=== PATIENT | female | born 2000 | race Caucasian/White ===

== ENCOUNTER 2020-06-12 09:00 | Emergency (ER) | payer OTHER, SELFPAY ==
[2020-06-12 09:16] VITALS: BP 150/94; PULSE 78; RESP 18; TEMP 36.7; O2SAT 98; BMI 34.0
--- NOTE | 2020-06-12 09:42 | HMH.EDUTC ---
[facility] [place] Clinical Impression: Left otitis media Qualifiers: Otitis media type: suppurative Chronicity: acute Recurrence: non-recurrent Spontaneous tympanic membrane rupture: without spontaneous rupture Qualified Code(s): H66.002 - Acute suppurative otitis media without spontaneous rupture of ear drum, left ear Disposition: Home, Self-Care Condition on Discharge: Good Instructions: Middle Ear Infection Additional Instructions: Drink plenty of fluids. Take tylenol or ibuprofen for pain or fever. Take the medications as directed. Follow up with your regular doctor. GO TO THE ER FOR ANY WORSENING SYMPTOMS Prescriptions: Amoxicillin [Amoxicillin 500mg Tab] 500 mg PO TID 10 Days #30 tab Transmission Status: Received by [id number] Referrals: Bao Wya [Primary Care Provider] - Forms: Work/School Release Time of Disposition: 09:48 Medical Decision Making - Medical Records Medical records reviewed: No: I reviewed the patient's medical records. - Sameer Inquiry Pt receiving controlled substance: No Vital Signs: 06/12/20 09:16 06/12/20 09:53 Temperature 98.1 F 98.1 F Temperature Source Oral Oral Pulse Rate 78 Pulse Rate [Radial] 78 Respiratory Rate 18 18 Blood Pressure 150/94 H Blood Pressure [Right Arm] 150/94 H Blood Pressure Mean [Right Arm] 112 Blood Pressure Source Automatic Cuff Blood Pressure Source [Right Arm] Automatic Cuff Blood Pressure Position Sitting Blood Pressure Position [Right Arm] Sitting 02 Sat by Pulse Oximetry 98 Oxygen Delivery Method Room Air Room Air [facility] [place] - General Stated complaint: Possible both ear infection Time Seen by Provider: 06/12/20 09:20 Mode of Arrival: Ambulatory Source of Information: Patient Limitations: No Limitations Description of Symptoms (Recalled from Triage Doc. by RN): left ear pain, right ear began to hurt today. HEENT Symptoms (Recalled from RN notes): Yes Resp Symptoms (Recalled from RN notes): No Skin Symptoms (Recalled from RN notes): No MS Symptoms (Recalled from RN notes): No Functional Status (Recalled from RN notes): wnl - History of Present Illness Provider Complaint: She c/o left ear pain for the past 2 days. - Related Data Previous Rx's Medication Instructions Recorded Amoxicillin [Amoxicillin 500mg Tab] 500 mg PO TID 10 Days #30 tab 06/12/20 Allergies Allergy/AdvReac Type Severity Reaction Status Date / Time No Known Allergies Allergy Verified 06/12/20 09:22 - Worker's Comp Is this a Worker's Comp case?: No H History - Hepatitis A Screen Drug use history?: No High risk sexual behaviors?: No History of sexually transmitted infection?: No Currently employed?: No Childcare worker?: No Do you have indoor plumbing?: Yes Do you have electricity?: Yes Attestation statement:: This patient has been screened for Hepatitis A risk factors. I have reviewed the patient's past medical history: Yes - Social History Alcohol Intake: never Occupational Status: employed Housing: house ROS Obtained: Yes All systems reviewed & no additional complaints - Constitutional Constitutional: Reports system reviewed and no additional complaints, except as docu, Denies chills, Denies fever(s) - Eyes Eyes: Reports system reviewed and no additional complaints, except as docu, Denies eye discharge - ENT Ears, Nose, Mouth, and Throat: Reports as per HPI - Cardiovascular Cardiovascular: Denies chest pain - Respiratory Respiratory: No chest congestion, No cough Physical Exam - General General appearance: alert, in no apparent distress - Head Head exam: atraumatic, normocephalic, normal inspection - Eye Eye exam: Present: normal appearance, PERRL, EOMI - ENT ENT exam: Present: mucous membranes moist, normal external ear exam - Expanded ENT Exam TM/Canal exam: Left TM: erythema, bulging, effusion Mouth exam: Present: normal external inspection Teeth exam
[2020-06-12 09:53] VITALS: BP 150/94; PULSE 78; RESP 18; TEMP 36.7; O2SAT 98
== END 2020-06-12 09:54 | disposition home or self-care (01) ==
PROVIDERS: Emergency Provider Nurse Practitioner Family; PCP Family Medicine
DX: H66.002 Acute suppurative otitis media without spontaneous rupture of ear drum, left ear (principal)
CPT/HCPCS: 99201

== ENCOUNTER → 2020-08-28 08:45 | Outpatient (CLI) | payer OTHER, BC, SELFPAY ==
[2020-08-28 10:01] LABS: HCG,Quantitative < 2 mIU/ml (0-5.42)
== END ==
PROVIDERS: Visit Provider Nurse Practitioner Obstetrics & Gynecology
DX: Z34.90 Encounter for supervision of normal pregnancy, unspecified, unspecified trimester (principal)
CPT/HCPCS: 36415; 84702

== ENCOUNTER → 2020-09-19 18:18 | Outpatient (CLI) | payer OTHER, BC, SELFPAY ==
[2020-09-19 19:13] LABS: HCG,Quantitative 49 mIU/ml (0-5.42)
== END ==
PROVIDERS: Visit Provider Nurse Practitioner Obstetrics & Gynecology
DX: N92.6 Irregular menstruation, unspecified (principal)
CPT/HCPCS: 36415; 84702

== ENCOUNTER → 2020-09-26 15:32 | Outpatient (CLI) | payer OTHER, BC, SELFPAY ==
[2020-09-26 16:39] LABS: HCG,Quantitative 650 mIU/ml (0-5.42)
== END ==
PROVIDERS: Visit Provider Nurse Practitioner Obstetrics & Gynecology
DX: Z32.00 Encounter for pregnancy test, result unknown (principal)
CPT/HCPCS: 36415; 84702

== ENCOUNTER → 2020-10-18 10:32 | Outpatient (CLI) | payer OTHER, BC, SELFPAY ==
--- NOTE | 2020-10-18 10:33 | US_ITS ---
PROCEDURE: US OB <= 14 WEEKS FETUS CLINICAL INDICATION: for dates Evaluate dates, early OB ultrasound COMPARISON: No exams were available for comparison FINDINGS: An intrauterine gestational sac is present with a pole with a crown-rump length of 1.45cm correlating to gestational age of 7weeks 6days. heart tones are present with an FHR of 160bpm. Yolk sac is noted. There is a 2.4 cm left corpus luteum cyst IMPRESSION: Live IUP at 7 weeks 6 days Estimated due date by Ultrasound is 05/31/2021 Dictated by: Atilio Olivas MD 10/18/2020 18:55 Atilio Olivas MD in [place] 10/18/2020 18:55
== END ==
PROVIDERS: PCP Family Medicine; Visit Provider Nurse Practitioner Obstetrics & Gynecology
DX: Z34.90 Encounter for supervision of normal pregnancy, unspecified, unspecified trimester (principal)
CPT/HCPCS: 76801

== ENCOUNTER → 2020-11-06 15:42 | Outpatient (CLI) | payer OTHER, BC, SELFPAY ==
[2020-11-06 16:29] LABS: Basophils # 0.1 K/mm3 (0-0.2); Basophils % 0.4 % (0.1-2.0); Eosinophils # 0.2 K/mm3 (0.0-0.4); Eosinophils % 1.3 % (0.1-12.0); Hematocrit 37.7 % (37.0-47.0); Hemoglobin 12.5 g/dL (12.2-16.2); Lymphocytes # 3.3 K/mm3 (0.7-4.5); Mean Corpuscular HGB Conc 33.2 g/dL (31.8-35.4); Mean Corpuscular Hemoglobin 28.2 pg (27.0-31.2); Mean Corpuscular Volume 84.8 fl (81-99); Mean Platelet Volume 8.1 fl (7.4-10.4); Monocytes # 0.6 K/mm3 (0.1-1.0); Monocytes % 4.5 % (1.7-9.3); Neutrophils # 10.1 K/mm3 (1.8-7.8); Neutrophils % 70.8 % (37.0-80.0); Platelet Count 305 K/mm3 (142-424); Red Blood Count 4.45 M/mm3 (4.20-5.40); Red Cell Distribution Width 13.6 % (11.5-17.5); White Blood Count 14.3 K/mm3 (4.8-10.8)
[2020-11-08 16:40] LABS: HIV Screen 4th Generation wRfx Non Reactive (Non Reactive); Hepatitis B Surface Antigen Negative (Negative); Hepatitis C Antibody <0.1 s/co ratio (0.0-0.9); Rapid Plasma Reagin Ab Titer Non Reactive (NonRea<1:1)
== END ==
PROVIDERS: Visit Provider Nurse Practitioner Obstetrics & Gynecology
DX: Z34.90 Encounter for supervision of normal pregnancy, unspecified, unspecified trimester (principal); Z3A.01 Less than 8 weeks gestation of pregnancy
CPT/HCPCS: 36415; 85025; 86592; 86703; 86762; 86850; 87340; 87380; G0432

== ENCOUNTER 2020-11-10 09:09 | Emergency (ER) | payer OTHER, BC, SELFPAY ==
[2020-11-10 09:10] VITALS: BP 117/90; PULSE 87; RESP 18; TEMP 37; O2SAT 99; BMI 34.2
--- NOTE | 2020-11-10 09:31 | HMH.EDUTC ---
[facility] [place]ression: Right sciatic nerve pain Disposition: Home, Self-Care Condition on Discharge: Good Instructions: DI for Back Pain With Sciatica Additional Instructions: Follow up with PCP or chiropractor Prescriptions: Cyclobenzaprine HCl [Cyclobenzaprine 10mg Tab*] 10 mg PO HS 20 Days #20 tab Transmission Status: Pending to [id number] methylPREDNISolone [Medrol 4mg tab] 4 mg PO DIRECTED #21 tab Transmission Status: Pending to [id number] Referrals: Bao Way [Primary Care Provider] - Time of Disposition: 09:41 Medical Decision Making - Sameer Inquiry Pt receiving controlled substance: No [facility] [place] - General Stated complaint: right sided lower back pain Time Seen by Provider: 11/10/20 09:31 - History of Present Illness Provider Complaint: Right sided low back pain for the past year or so. Getting worse for the past few months. No injury. Works at [employer], so does stand on concrete all day. Pain starts right above her right buttock and radiates to her foot. No bowel or bladder incontinence. Onset (ago): year(s) (1) Location: back, buttocks, right, lower extremity Quality: burning, sharp Consistency: constant Relieving factors: none Exacerbating factors: none Associated symptoms: denies other symptoms Treatments prior to arrival: none - Related Data Previous Rx's Medication Instructions Recorded Cyclobenzaprine HCl 10 mg PO HS 20 Days #20 tab 11/10/20 [Cyclobenzaprine 10mg Tab*] methylPREDNISolone [Medrol 4mg 4 mg PO DIRECTED #21 tab 11/10/20 tab] Allergies Allergy/AdvReac Type Severity Reaction Status Date / Time No Known Allergies Allergy Verified 10/18/20 09:[address] [facility] History - Hepatitis A Screen Attestation statement:: This patient has been screened for Hepatitis A risk factors. I have reviewed the patient's past medical history: Yes Amputation: No Fractures: No - Social History Smoking Status: Never smoker Alcohol Intake: never Alcohol Intake Frequency:: holidays/special occasions only Substance Use Type: denies use Occupational Status: employed Housing: house Family Hx:: No significant family history ROS Obtained: Yes All systems reviewed & no additional complaints - Musculoskeletal Musculoskeletal: Reports back pain, Reports radiating pain into limb Physical Exam - General General appearance: alert, in no apparent distress - Head Head exam: atraumatic, normocephalic, normal inspection - Eye Eye exam: Present: normal appearance, PERRL, EOMI - ENT ENT exam: Present: normal exam, normal oropharynx, mucous membranes moist, TM's normal bilaterally, normal external ear exam - Neck Neck exam: Present: normal inspection, full ROM, trachea midline. Absent: meningismus, lymphadenopathy - Chest Chest inspection: Present: normal inspection, symmetric chest wall rise. Absent: tenderness - Respiratory Respiratory exam: Present: normal lung sounds bilaterally. Absent: respiratory distress - Cardiovascular Cardiovascular exam: Present: regular rate, normal rhythm. Absent: JVD - Abdominal Exam Abdominal exam: Present: soft, normal bowel sounds. Absent: distention, tenderness, guarding - Extremities Exam Extremities exam: Present: normal inspection, full ROM, normal capillary refill. Absent: calf tenderness - Back Exam Back exam: Present: normal inspection, sciatic notch tenderness (R), straight leg raise (R). Absent: tenderness - Neurological Exam Neurological exam: Present: alert, oriented X3 - Psychiatric Psychiatric exam: Present: normal affect, normal mood - Skin Skin exam: Present: warm, dry, intact, normal color - Lymphatic Lymphatic Findings: no adenopathy
[2020-11-10 09:49] VITALS: BP 117/90; PULSE 87; RESP 18; TEMP 37; O2SAT 99
== END 2020-11-10 09:50 | disposition home or self-care (01) ==
PROVIDERS: Emergency Provider Physician Assistant; PCP Family Medicine
DX: M54.41 Lumbago with sciatica, right side (principal); Z3A.11 11 weeks gestation of pregnancy
CPT/HCPCS: 99202; G0463

== ENCOUNTER 2020-11-22 16:52 | Emergency (ER) | payer OTHER, BC, SELFPAY ==
[2020-11-22 16:53] VITALS: BP 136/92; PULSE 92; RESP 16; TEMP 36.8; O2SAT 98; BMI 34.0
--- NOTE | 2020-11-22 17:21 | HMH.EDUTC ---
[facility] [place] Clinical Impression: Viral syndrome, Exposure to COVID-19 virus Disposition: Home, Self-Care Condition on Discharge: Good Instructions: DI for COVID-19 (Suspected or Confirmed ), Preventing the Spread of Coronavirus Discharge Instructions Additional Instructions: Drink plenty of fluids. Take tylenol for pain or fever. Return if you begin to have difficulty breathing. Follow up with your regular doctor. GO TO THE ER FOR ANY WORSENING SYMPTOMS Referrals: Bao Way [Primary Care Provider] - Forms: Work/School Release Time of Disposition: 17:29 Medical Decision Making - Medical Records Medical records reviewed: No: I reviewed the patient's medical records. - Sameer Inquiry Pt receiving controlled substance: No Vital Signs: 11/22/20 16:53 11/22/20 17:55 Temperature 98.3 F 98.3 F Temperature Source Oral Oral Pulse Rate 65 Pulse Rate [Right] 92 H Respiratory Rate 16 16 Blood Pressure 130/70 Blood Pressure [Right Arm] 136/92 H Blood Pressure Mean [Right Arm] 106 Blood Pressure Source Automatic Cuff Blood Pressure Source [Right Arm] Automatic Cuff Blood Pressure Position Sitting Blood Pressure Position [Right Arm] Sitting 02 Sat by Pulse Oximetry 98 Oxygen Delivery Method Room Air Room Air - Lab Data Lab Results 11/22/20 17:44: Influenza Type A Ag Negative, Influenza Type B Ag Negative [facility] [place] HPI - General Stated complaint: Covid test Time Seen by Provider: 11/22/20 17:21 Mode of Arrival: Ambulatory Source of Information: Patient Limitations: No Limitations Description of Symptoms (Recalled from Triage Doc. by RN): no taste or smell, body aches, fever that started this morning HEENT Symptoms (Recalled from RN notes): No Resp Symptoms (Recalled from RN notes): No Skin Symptoms (Recalled from RN notes): No MS Symptoms (Recalled from RN notes): No Functional Status (Recalled from RN notes): na - History of Present Illness Provider Complaint: She is here needing a covid test. She states that she has had decreased sense of taste and smell since this morning. - Related Data Allergies Allergy/AdvReac Type Severity Reaction Status Date / Time No Known Allergies Allergy Verified 11/20/20 10:55 - Worker's Comp Is this a Worker's Comp case?: No [facility] History - Hepatitis A Screen Drug use history?: No High risk sexual behaviors?: No History of sexually transmitted infection?: No Currently employed?: No Childcare worker?: No Do you have indoor plumbing?: Yes Do you have electricity?: Yes Attestation statement:: This patient has been screened for Hepatitis A risk factors. I have reviewed the patient's past medical history: Yes Laterality Cases: Bilateral: Tonsillectomy Amputation: No Fractures: No - Social History Smoking Status: Never smoker Alcohol Intake: never Alcohol Intake Frequency:: holidays/special occasions only Substance Use Type: denies use Occupational Status: other Housing: house Family Hx:: No significant family history ROS Obtained: Yes All systems reviewed & no additional complaints - Constitutional Constitutional: Reports chills, Reports fever(s), Reports poor appetite, Reports malaise - Eyes Eyes: Denies eye discharge - ENT Ears, Nose, Mouth, and Throat: Reports as per HPI - Cardiovascular Cardiovascular: Denies system reviewed and no additional complaints, except as docu - Respiratory Respiratory: Reports chest congestion, Reports cough, Denies dyspnea, Denies stridor, Denies wheezing Physical Exam - General General appearance: alert, in no apparent distress - Head Head exam: atraumatic, normocephalic, normal inspection - Eye Eye exam: Present: normal appearance, PERRL, EOMI - ENT ENT exam: Present: normal exam, normal oropharynx, mucous membranes moist, TM's normal bilaterally, normal external ear exam - Neck Neck exam: Present: normal inspection, full ROM, trachea midline. Absent: m
[2020-11-22 17:53] LABS: UTC Influenza A Antigen Negative (Negative); UTC Influenza B Antigen Negative (Negative)
[2020-11-22 17:55] VITALS: BP 130/70; PULSE 65; RESP 16; TEMP 36.8; O2SAT 98
--- NOTE | 2020-11-23 09:42 | PC.NURSE ---
Pt notified of positive covid results
== END 2020-11-22 17:56 | disposition home or self-care (01) ==
PROVIDERS: Emergency Provider Nurse Practitioner Family; PCP Family Medicine
DX: U07.1 COVID-19 (principal); B34.9 Viral infection, unspecified
CPT/HCPCS: 87804; 99202; G0463; U0003

== ENCOUNTER 2020-11-29 01:19 | Emergency (ER) | payer OTHER, BC, SELFPAY ==
[2020-11-29 01:30] VITALS: BP 153/83; PULSE 124; RESP 19; TEMP 36.8; O2SAT 99; BMI 25.0
[2020-11-29 02:00] VITALS: BP 135/68; PULSE 111; RESP 18; O2SAT 99
[2020-11-29 02:30] VITALS: BP 122/56; PULSE 103; O2SAT 100
[2020-11-29 03:00] VITALS: BP 120/47; PULSE 107; RESP 17; TEMP 36.9; O2SAT 100
[2020-11-29 03:25] VITALS: BP 118/51; PULSE 105; RESP 18; TEMP 36.9; O2SAT 100
[2020-11-29 04:02] LABS: Hematocrit 42.7 % (37.0-47.0); Hemoglobin 14.2 g/dL (12.2-16.2); Red Blood Count 5.12 M/mm3 (4.20-5.40); White Blood Count 8.6 K/mm3 (4.8-10.8)
[2020-11-29 04:03] LABS: Basophils % 0.3 % (0.1-2.0); Eosinophils # 0.1 K/mm3 (0.0-0.4); Eosinophils % 1.1 % (0.1-12.0); Lymphocytes % 23.8 % (10-50); Mean Corpuscular HGB Conc 33.3 g/dL (31.8-35.4); Mean Corpuscular Hemoglobin 27.8 pg (27.0-31.2); Mean Corpuscular Volume 83.5 fl (81-99); Mean Platelet Volume 8.3 fl (7.4-10.4); Monocytes # 0.4 K/mm3 (0.1-1.0); Monocytes % 5.1 % (1.7-9.3); Neutrophils # 5.9 K/mm3 (1.8-7.8); Neutrophils % 68.7 % (37.0-80.0); Platelet Count 197 K/mm3 (142-424); Red Cell Distribution Width 12.7 % (11.5-17.5)
[2020-11-29 04:04] LABS: Anion Gap 16.6 mEq/L (5-15); Bilirubin,Total 0.4 mg/dl (0.2-1.3); Blood Urea Nitrogen 6 mg/dl (7-17); Calcium 9.2 mg/dl (8.4-10.2); Carbon Dioxide 20 mmol/L (22.0-30.0); Chloride 104 mmol/L (98-107); Creatinine Clearance Estimated 175 mL/min (50-200); Estimated Glomerular Filt Rate 126 ml/min (>60); GFR (African American) 153 ML/MIN (>60); Glucose 109 mg/dl (74-100); Potassium 3.6 mmoL/L (3.5-5.1); Sodium 137 mmol/L (136-145)
[2020-11-29 04:05] LABS: Alanine Aminotransferase 62 U/L (12-78); Albumin Level 4.2 g/dl (3.5-5.0); Albumin/Globulin Ratio 1.2 (1.1-1.8); Alkaline Phosphatase 76 U/L (38-126); Amylase 59 U/L (30-110); Aspartate Amino Transferase 49 U/L (14-36); C-Reactive Protein 149.9 mg/L (0-4); Globulin 3.5 g/dL (1.3-3.2); Lipase 61 U/L (23-300); Procalcitonin 0.144 ng/mL (0.0-2.0); Total Protein,Serum 7.7 g/dl (6.3-8.2)
[2020-11-29 04:06] LABS: Erythrocyte Sedimentation Rate 25 mm/hr (0-20)
[2020-11-29 04:06] LABS: Color,Urine Dark Yellow (Yellow); Microscopic, Urine URINE MICROSCOPIC (MICROSCOPIC)
[2020-11-29 04:07] LABS: Appearance,Urine Clear (Clear); Blood, Urine Trace (Negative); Glucose,Urine (UA) Negative (Negative); Ketones,Urine 3+ (Negative); Protein,Urine Trace (Negative); Specific Gravity, Urine >= 1.030 (1.005-1.030)
[2020-11-29 04:08] LABS: Bacteria,Urine Trace /lpf; Bilirubin,Urine Negative (Negative); Leukocyte Esterase,Urine Negative (Negative); Nitrate,Urine Negative (Negative); RBC,Urine Occasional #/hpf (0-3)
--- NOTE | 2020-11-29 04:49 | HMH.EDNVD ---
ED Disposition Clinical Impression: COVID-19 affecting in second trimester Disposition: Home, Self-Care Condition on Discharge: Good Instructions: DI for Nausea -- Adult Additional Instructions: fluids and see pcp for follow up Referrals: Bao Way [Primary Care Provider] - - Critical Care Critical Care Time: No Attestation: On 11/29/20, the high probability of a clinically significant, sudden or life threatening deterioration of the following system(s) required my full and direct attention, intervention and personal management. The time I documented below is in addition to time spent performing reported procedures but includes the following listed in this critical care notation. Medical Decision Making - Medical Records Medical records reviewed: Yes: I reviewed the patient's medical records. - Sameer Inquiry Pt receiving controlled substance: No Vital Signs: 11/29/20 01:30 11/29/20 02:00 11/29/20 02:30 Temperature 98.3 F Temperature Source Oral Pulse Rate 111 H 103 H Pulse Rate [Right Brachial] 124 H Respiratory Rate 19 18 Blood Pressure 135/68 122/56 L Blood Pressure [Right Arm] 153/83 H Blood Pressure Mean [Right Arm] 106 Blood Pressure Source [Right Arm] Automatic Cuff Blood Pressure Position 02 Sat by Pulse Oximetry 99 99 100 Oxygen Delivery Method Room Air Room Air Room Air 11/29/20 03:00 11/29/20 03:25 Temperature 98.4 F 98.4 F Temperature Source Oral Oral Pulse Rate 107 H 105 H Pulse Rate [Right Brachial] Respiratory Rate 17 18 Blood Pressure 120/47 L 118/51 L Blood Pressure [Right Arm] Blood Pressure Mean [Right Arm] Blood Pressure Source [Right Arm] Blood Pressure Position Supine 02 Sat by Pulse Oximetry 100 Oxygen Delivery Method Room Air Room Air - Lab Data Lab results reviewed: Yes: I reviewed the patient's lab results. Lab Results 11/29/20 01:35: WBC 8.6, RBC 5.12, Hgb 14.2, Hct 42.7, MCV 83.5, MCH 27.8, MCHC 33.3, RDW 12.7, Plt Count 197, MPV 8.3, Neut % (Auto) 68.7, Lymph % (Auto) 23.8, Cross % (Auto) 5.1, Eos % (Auto) 1.1, Baso % (Auto) 0.3, Neut # (Auto) 5.9, Lymph # (Auto) 2.0, Cross # (Auto) 0.4, Eos # (Auto) 0.1, Baso # (Auto) 0.0 11/29/20 01:35: Sodium 137, Potassium 3.6, Chloride 104, Carbon Dioxide 20 L, Anion Gap 16.6 H, BUN 6 L, Creatinine 0.60, Estimated Creat Clear 175, Estimated GFR 126, Est GFR ( Amer) 153, Glucose 109 H, Calcium 9.2, Total Bilirubin 0.4, AST 49 H, ALT 62, Alkaline Phosphatase 76, C-Reactive Protein 149.9 H, Total Protein 7.7, Albumin 4.2, Globulin 3.5 H, Albumin/Globulin Ratio 1.2, Amylase 59, Lipase 61 11/29/20 01:35: ESR 25 H 11/29/20 01:35: Procalcitonin 0.144 11/29/20 02:35: Urine Color Dark yellow, Urine Appearance Clear, Urine pH 6.0, Ur Specific [place] >= 1.030, Urine Protein Trace, Urine Glucose (UA) Negative, Urine Ketones 3+, Urine Blood Trace, Urine Nitrate Negative, Urine Bilirubin Negative, Urine Urobilinogen 1.0, Ur Leukocyte Esterase Negative, Urine RBC Occasional, Urine Bacteria Trace Result diagrams: 11/29/20 01:35 11/29/20 01:35 Orders (Tests/Meds): ED MEDICATIONS Generic Name Dose Route Start Last Admin Trade Name Freq PRN Reason Stop Dose Admin Sodium Chloride 1,000 mls @ 999 mls/hr 11/29/20 04:15 11/29/20 04:03 Sod Chlor 0.9% 1000ml Bag IV 11/29/20 05:15 999 mls/hr .Q1H1M TRACIE Administration Discontinued Medications Generic Name Dose Route Start Last Admin Trade Name Freq PRN Reason Stop Dose Admin Promethazine HCl 25 mg 11/29/20 04:01 11/29/20 04:03 Promethazine Hcl 25mg/Ml 1ml Vial IV 11/29/20 04:02 25 mg ONCE ONE Administration Sodium Chloride 25 ml 11/29/20 04:01 11/29/20 04:03 Sodium Chloride 0.9% 25ml Bag IV 11/29/20 04:02 25 ml ONCE ONE Administration Nausea/Vomiting/Diarrhea HPI - General Chief complaint: Nausea/Vomiting/Diarrhea Stated complaint: COVID Positive Vomiting;Cough Time Seen by Provider:
== END 2020-11-29 03:35 | disposition home or self-care (01) ==
PROVIDERS: Emergency Provider Emergency Medicine; PCP Family Medicine
DX: O98.512 Other viral diseases complicating pregnancy, second trimester (principal); U07.1 COVID-19
CPT/HCPCS: 80053; 81001; 82150; 83690; 84145; 85025; 85651; 86140; 96365; 99283

== ENCOUNTER 2020-12-11 09:31 | Emergency (ER) | payer OTHER, BC, SELFPAY ==
[2020-12-11 09:41] VITALS: BP 126/89; PULSE 98; RESP 16; TEMP 36.7; O2SAT 97; BMI 34.9
[2020-12-11 09:43] LABS: Apearance,Urine Clear (Clear); Color,Urine Yellow (Yellow); PH,Urine 5.5 (5.0-8.5)
[2020-12-11 09:44] LABS: Glucose,Urine (UA) Negative (Negative); Protein,Urine 1+ (Negative); Specific Gravity, Urine >= 1.030 (1.005-1.030)
[2020-12-11 09:45] LABS: Bilirubin,Urine 1+ (Negative); Blood, Urine Trace (Negative); Ketones,Urine TRACE (Negative); UTC Leukocyte Esterase,Urine Trace (Negative); UTC Nitrate,Urine Positive (Negative); Urobilinogen,Urine 0.2 EU/dl (0.2)
--- NOTE | 2020-12-11 09:50 | HMH.EDUTC ---
[facility] [place] Disposition Clinical Impression: UTI (urinary tract infection) Qualifiers: Urinary tract infection type: site unspecified Hematuria presence: without hematuria Qualified Code(s): N39.0 - Urinary tract infection, site not specified Disposition: Home, Self-Care Condition on Discharge: Good Instructions: Urinary Tract Infection, DI for Urinary Tract Infection (UTI) Additional Instructions: Drink plenty of fluids. Take tylenol for pain or fever. Return if you begin to have difficulty breathing. Follow up with your regular doctor. GO TO THE ER FOR ANY WORSENING SYMPTOMS Prescriptions: cephALEXin [cephALEXin 500mg capsule] 500 mg PO Q6H 7 Days #28 cap Transmission Status: Received by [id number] Referrals: Bao Way [Primary Care Provider] - Forms: Work/School Release Time of Disposition: 09:57 Medical Decision Making - Sameer Inquiry Pt receiving controlled substance: No Vital Signs: 12/11/20 09:41 12/11/20 10:03 Temperature 98.1 F 98.1 F Temperature Source Oral Oral Pulse Rate 98 H Pulse Rate [Left Radial] 98 H Respiratory Rate 16 16 Blood Pressure 126/89 Blood Pressure [Right Arm] 126/89 Blood Pressure Mean [Right Arm] 101 02 Sat by Pulse Oximetry 97 Oxygen Delivery Method Room Air - Lab Data Lab results reviewed: Yes: I reviewed the patient's lab results. Lab Results 12/11/20 09:42: Urine Color Yellow, Urine Appearance Clear, Urine pH 5.5, Ur Specific [place] >= 1.030, Urine Protein 1+, Urine Glucose (UA) Negative, Urine Ketones Trace, Urine Blood Trace, Urine Nitrate Positive A, Urine Bilirubin 1+ A, Urine Urobilinogen 0.2, Ur Leukocyte Esterase Trace Orders (Tests/Meds): ORDERS Category Date Time Status Urine Culture Routine Micro 12/11/20 09:30 Received [facility] [place] HPI - General Stated complaint: FREQUENT URINATION,BURNING Time Seen by Provider: 12/11/20 09:50 Mode of Arrival: Ambulatory Source of Information: Patient Limitations: No Limitations Description of Symptoms (Recalled from Triage Doc. by RN): Burning upon urination, will be 16 weeks on 12/14/20 HEENT Symptoms (Recalled from RN notes): No Resp Symptoms (Recalled from RN notes): No Skin Symptoms (Recalled from RN notes): No MS Symptoms (Recalled from RN notes): No Functional Status (Recalled from RN notes): na - History of Present Illness Provider Complaint: She reports that she has had urinary frequency and dysuria for the past 1 day. She is 14 weeks . She denies any vaginal bleeding, abdominal pain or low back pain. - Related Data Home Medications Medication Instructions Recorded Confirmed Pnv No.95/Ferrous Fum/Folic AC 1 tab PO DAILY 11/29/20 11/29/20 [ Caplet] Previous Rx's Medication Instructions Recorded cephALEXin [cephALEXin 500mg 500 mg PO Q6H 7 Days #28 cap 12/11/20 capsule] Allergies Allergy/AdvReac Type Severity Reaction Status Date / Time oseltamivir [From Tamiflu] AdvReac Mild Rash Verified 11/29/20 04:06 - Worker's Comp Is this a Worker's Comp case?: No [facility] History - Hepatitis A Screen Drug use history?: No High risk sexual behaviors?: No History of sexually transmitted infection?: No Currently employed?: No Childcare worker?: No Do you have indoor plumbing?: Yes Do you have electricity?: Yes Attestation statement:: This patient has been screened for Hepatitis A risk factors. I have reviewed the patient's past medical history: Yes Medical History: Denies:: Cancer, Diabetes Mellitus Type 1, Diabetes Mellitus Type 2 Laterality Cases: Bilateral: Tonsillectomy Amputation: No Fractures: No - Social History Smoking Status: Never smoker Alcohol Intake: never Alcohol Intake Frequency:: holidays/special occasions only Substance Use Type: denies use Occupational Status: employed Housing: house Household Members: significant other Family Hx:: No significant family history ROS Obtained: Yes All sys
[2020-12-11 10:03] VITALS: BP 126/89; PULSE 98; RESP 16; TEMP 36.7; O2SAT 97
--- NOTE | 2020-12-14 15:41 | PC.NURSE ---
PT CALLED AND REQUESTED URINE CULTURE RESULTS. PT INFORMED. [facility] PROVIDER RECOMMENDED A CHANGE OF ANTIBIOTIC. ANTIBIOTIC SENT TO [facility], PT AWARE
== END 2020-12-11 10:06 | disposition home or self-care (01) ==
PROVIDERS: Emergency Provider Nurse Practitioner Family; PCP Family Medicine
DX: O23.12 Infections of bladder in pregnancy, second trimester (principal); N30.00 Acute cystitis without hematuria; Z3A.16 16 weeks gestation of pregnancy
CPT/HCPCS: 81003; 87086; 87088; 87186; 99202; G0463

== ENCOUNTER → 2021-01-10 12:47 | Outpatient (CLI) | payer OTHER, BC, SELFPAY ==
--- NOTE | 2021-01-10 12:48 | US_ITS ---
PROCEDURE: US OB >= 14 WEEKS FETUS CLINICAL INDICATION: 20 week gestation Anatomy exam COMPARISON: US US OB <= 14 WEEKS FETUS from 10/18/2020 FINDINGS: There is a single live fetus which is in cephalic presentation. heart and body motion noted. Cervix is closed measuring 4 cm. Placenta is posterior and grade 1. Complete survey performed and was unremarkable on the submitted images as in PACS. No discrete anomalies identified on survey imaging by technologist. Active fetus. Three-vessel cord with satisfactory umbilical cord insertion. 4- chamber heart noted. Survey of brain & ventricles Unremarkable. Face and neck survey unremarkable. Diaphragm and chest views unremarkable. Abdomen: Both kidneys noted and unremarkable. Stomach noted and satisfactory. Spine: Survey of the spine satisfactory with no anomalies identified nor imaged. Both arms and legs noted. Amniotic Fluid: Adequate. Maternal adnexa: No significant findings. Measurements: Average ultrasound age 19weeks 6days. Gestational Age 19weeks 6days Estimated due date by ultrasound age 1005/31/2021. Estimated weight 324g BPD = 20weeks OFD = 20weeks 1day HC = 19weeks 2days AC = 20weeks 1day FL = 20weeks Growth Percentile= 52Percent% Heart Rate = 156bpm Cerebellum = 20weeks Humerus = 20weeks HC/AC is 1.11 CI is 0.8 FL/BPD is 0.69 FL/AC is 0.22 IMPRESSION: Live IUP in cephalic presentation with an average ultrasound age of 19 weeks 6 days. No obvious anomalies. Please see above for detail. Dictated by: Atilio Olivas MD 01/11/2021 08:31 Atilio Olivas MD in [place] 01/11/2021 08:31
== END ==
PROVIDERS: PCP Family Medicine; Visit Provider Nurse Practitioner Obstetrics & Gynecology
DX: Z34.90 Encounter for supervision of normal pregnancy, unspecified, unspecified trimester (principal); Z3A.20 20 weeks gestation of pregnancy
CPT/HCPCS: 76805

== ENCOUNTER 2021-02-26 09:09 | Outpatient (CLI) | payer OTHER, BC, SELFPAY ==
[2021-02-26 10:02] LABS: Glucose,Fasting 95 mg/dl (74-100)
[2021-02-26 11:17] VITALS: BP 144/83; PULSE 104; RESP 18; O2SAT 97
[2021-02-26 16:13] LABS: Glucose 1 Hour 88 mg/dL (74-100)
== END 2021-02-26 11:17 | disposition home or self-care (01) ==
LOC: LAB 09:10 → INF 10:59
PROVIDERS: Visit Provider Nurse Practitioner Obstetrics & Gynecology
DX: Z34.90 Encounter for supervision of normal pregnancy, unspecified, unspecified trimester (principal); Z3A.25 25 weeks gestation of pregnancy
CPT/HCPCS: 36415; 82951; 96372; J2790

== ENCOUNTER → 2021-04-27 07:52 | Outpatient (CLI) | payer BC, SELFPAY ==
--- NOTE | 2021-04-27 07:52 | US_ITS ---
PROCEDURE: US OB BIOPHYSICAL PROFILE CLINICAL INDICATION: Patient measures up larger than her dates. COMPARISON: US US OB >= 14 WEEKS FETUS from 01/10/2021 FINDINGS: There is a single live fetus in cephalic presentation. heart body motion noted. BPD 37/0, OFD 35/3, HC 35/, AC 36/4, FL 35/2. Biophysical profile is 8 of 8. Amniotic fluid index is 16 cm. The placenta is fundal and posterior and grade 3. Average ultrasound age is 36 weeks 1 day with an estimated weight of 2865 g which is 76 percentile. IMPRESSION: There is a single live fetus in cephalic presentation with an average ultrasound age 36 weeks 1 day.. Biophysical profile is 8 of 8. Amniotic fluid index is 16 cm. The placenta is fundal and posterior and grade 3. Average ultrasound age is 36 weeks 1 day with an estimated weight of 2865 g which is 76 percentile Dictated by: Atilio Olivas MD 04/29/2021 11:47 Atilio Olivas MD in [place] 04/29/2021 11:47
== END ==
PROVIDERS: PCP Nurse Practitioner Obstetrics & Gynecology; Visit Provider Nurse Practitioner Obstetrics & Gynecology
DX: O36.60X0 Maternal care for excessive fetal growth, unspecified trimester, not applicable or unspecified (principal)
CPT/HCPCS: 76816; 76819

== ENCOUNTER 2021-05-02 16:14 | Outpatient (CLI) | payer BC, SELFPAY ==
[2021-05-02 16:32] VITALS: BMI 37.4
[2021-05-02 16:40] VITALS: BP 143/99; PULSE 106; RESP 20; O2SAT 96; BMI 37.4
[2021-05-02 17:13] LABS: Basophils # 0.1 K/mm3 (0-0.2); Basophils % 0.4 % (0.1-2.0); Eosinophils # 0.1 K/mm3 (0.0-0.4); Eosinophils % 0.6 % (0.1-12.0); Hematocrit 37.5 % (37.0-47.0); Hemoglobin 12.6 g/dL (12.2-16.2); Lymphocytes # 2.5 K/mm3 (0.7-4.5); Lymphocytes % 17.7 % (10-50); Mean Corpuscular HGB Conc 33.6 g/dL (31.8-35.4); Mean Corpuscular Hemoglobin 27.8 pg (27.0-31.2); Mean Corpuscular Volume 82.8 fl (81-99); Mean Platelet Volume 9.8 fl (7.4-10.4); Monocytes # 0.7 K/mm3 (0.1-1.0); Monocytes % 4.9 % (1.7-9.3); Neutrophils # 10.7 K/mm3 (1.8-7.8); Neutrophils % 76.3 % (37.0-80.0); Platelet Count 318 K/mm3 (142-424); Red Blood Count 4.53 M/mm3 (4.20-5.40); Red Cell Distribution Width 14.1 % (11.5-17.5)
[2021-05-02 17:31] LABS: Activated Partial Thrombo Time 26.3 seconds (22.8-30.6); Fibrinogen 449 mg/dL (229.9-363.5); Prothrombin Time 10.3 seconds (10.1-12.5)
[2021-05-02 17:34] LABS: INR 0.86 (0.9-1.1)
[2021-05-02 17:40] LABS: Glucose 85 mg/dl (74-100); Uric Acid 4.8 mg/dl (2.5-6.2)
[2021-05-02 17:40] LABS: Microscopic, Urine URINE MICROSCOPIC (MICROSCOPIC)
[2021-05-02 17:41] LABS: Blood Urea Nitrogen 10 mg/dl (7-17); Carbon Dioxide 23 mmol/L (22.0-30.0); Chloride 103 mmol/L (98-107); Creatinine Clearance Estimated 259 mL/min (50-200); Estimated Glomerular Filt Rate 125 ml/min (>60); GFR (African American) 151 ML/MIN (>60); Sodium 136 mmol/L (136-145)
[2021-05-02 17:42] LABS: Alanine Aminotransferase 14 U/L (12-78); Aspartate Amino Transferase 21 U/L (14-36); Calcium 9.5 mg/dl (8.4-10.2); D-Dimer 0.59 ug/mL (0.0-0.5)
[2021-05-02 17:48] LABS: Appearance,Urine SL CLOUDY (Clear); Bilirubin,Urine Negative (Negative); Blood, Urine TRACE-I (Negative); Color,Urine YELLOW (Yellow); Glucose,Urine (UA) Negative (Negative); Ketones,Urine Negative (Negative); Leukocyte Esterase,Urine Negative (Negative); Nitrate,Urine Negative (Negative); Protein,Urine TRACE (Negative); Specific Gravity, Urine >= 1.030 (1.005-1.030); Urobilinogen,Urine 0.2 EU/dl (0.2)
[2021-05-02 17:59] LABS: Amphetamine/Metha Screen,Urine Negative ng/ml (<1000); Bacteria,Urine Trace /lpf; WBC,Urine Occasional #/hpf (0-3)
[2021-05-02 18:00] LABS: Barbiturates Screen,Urine Negative ng/ml (<200); Benzodiazepines Screen,Urine Negative ng/ml (<200)
[2021-05-02 18:01] LABS: Phencyclidine Screen,Urine Negative ng/ml (<25)
[2021-05-02 18:02] LABS: Opiate Screen,Urine Negative ng/ml (<300)
[2021-05-02 18:03] LABS: Cannabinoid Screen,Urine Negative ng/ml (<50); Cocaine Screen,Urine Negative ng/ml (<300)
[2021-05-02 18:04] LABS: Methadone Screen,Urine Negative ng/ml (<300)
== END 2021-05-02 19:10 | disposition home or self-care (01) ==
LOC: OBOUT 16:15 → OB 16:17
PROVIDERS: PCP Family Medicine; Visit Provider Nurse Practitioner Obstetrics & Gynecology
DX: O13.3 Gestational [pregnancy-induced] hypertension without significant proteinuria, third trimester (principal); Z3A.35 35 weeks gestation of pregnancy
CPT/HCPCS: 36415; 59025; 80048; 80305; 81001; 84450; 84460; 84550; 85025; 85378; 85384; 85610; 85730; 86850

== ENCOUNTER → 2021-05-02 17:51 | Outpatient (CLI) | payer BC, SELFPAY | PROVIDERS: Visit Provider Nurse Practitioner Obstetrics & Gynecology | DX: Z34.90 Encounter for supervision of normal pregnancy, unspecified, unspecified trimester (principal) | CPT/HCPCS: 86403 ==

== ENCOUNTER 2021-05-04 09:44 | Inpatient (IN) | payer BC, SELFPAY ==
[2021-05-04] VITALS (7 sets, daily range): BP systolic 135–151; BP diastolic 73–99; PULSE 77–107; RESP 16–20; TEMP 36.8–37; O2SAT 95–100; BMI 36.8
[2021-05-04 10:10] LABS: Microscopic, Urine URINE MICROSCOPIC (MICROSCOPIC)
[2021-05-04 10:16] LABS: Appearance,Urine CLEAR (Clear); Bilirubin,Urine Negative (Negative); Blood, Urine TRACE-I (Negative); Color,Urine YELLOW (Yellow); Glucose,Urine (UA) Negative (Negative); Ketones,Urine Negative (Negative); Leukocyte Esterase,Urine Negative (Negative); Nitrate,Urine Negative (Negative); Protein,Urine Negative (Negative); Specific Gravity, Urine >= 1.030 (1.005-1.030); Urobilinogen,Urine 0.2 EU/dl (0.2)
[2021-05-04 10:19] LABS: Creatinine,Urine Random 103 mg/dL (Not Estab.); Patient Height,Urine 69 inches; Patient Weight,Urine 246 lbs
[2021-05-04 10:26] LABS: Benzodiazepines Screen,Urine Negative ng/ml (<200)
[2021-05-04 10:27] LABS: Amphetamine/Metha Screen,Urine Negative ng/ml (<1000); Barbiturates Screen,Urine Negative ng/ml (<200)
[2021-05-04 10:28] LABS: Bacteria,Urine Trace /lpf; Cannabinoid Screen,Urine Negative ng/ml (<50); RBC,Urine Occasional #/hpf (0-3)
[2021-05-04 10:29] LABS: Cocaine Screen,Urine Negative ng/ml (<300); Methadone Screen,Urine Negative ng/ml (<300)
[2021-05-04 10:30] LABS: Opiate Screen,Urine Negative ng/ml (<300)
[2021-05-04 10:31] LABS: Phencyclidine Screen,Urine Negative ng/ml (<25)
[2021-05-04 10:38] LABS: Coronavirus 19, PCR Not Detected (NotDetected); Influenza A, PCR Not Detected (NotDetected); Influenza B, PCR Not Detected (NotDetected)
[2021-05-04 10:39] LABS: Basophils % 0.3 % (0.1-2.0); Eosinophils # 0.1 K/mm3 (0.0-0.4); Eosinophils % 0.8 % (0.1-12.0); Hematocrit 38.7 % (37.0-47.0); Hemoglobin 12.7 g/dL (12.2-16.2); Lymphocytes # 2.2 K/mm3 (0.7-4.5); Lymphocytes % 16.5 % (10-50); Mean Corpuscular HGB Conc 32.8 g/dL (31.8-35.4); Mean Corpuscular Hemoglobin 27.4 pg (27.0-31.2); Mean Corpuscular Volume 83.4 fl (81-99); Monocytes # 0.7 K/mm3 (0.1-1.0); Monocytes % 4.8 % (1.7-9.3); Neutrophils # 10.5 K/mm3 (1.8-7.8); Neutrophils % 77.6 % (37.0-80.0); Platelet Count 284 K/mm3 (142-424); Red Blood Count 4.64 M/mm3 (4.20-5.40); Red Cell Distribution Width 13.5 % (11.5-17.5); White Blood Count 13.5 K/mm3 (4.8-10.8)
[2021-05-04 10:54] LABS: Activated Partial Thrombo Time 26.8 seconds (22.8-30.6); Fibrinogen 437 mg/dL (229.9-363.5); Prothrombin Time 10.3 seconds (10.1-12.5)
[2021-05-04 10:56] LABS: INR 0.86 (0.9-1.1)
[2021-05-04 11:03] LABS: Collection Time,Urine 24 hours
[2021-05-04 11:04] LABS: Creatinine 24 Hour,Urine 1494 mg/24hr (630-2500); Total Protein 24 Hour,Urine 508 mg/24 hr (40-90); Total Volume,Urine 1450 mL (600-1600)
[2021-05-04 11:06] LABS: Creatinine Clearance Urine 172.9 mL/min (25-115)
[2021-05-04 11:08] LABS: Blood Urea Nitrogen 8 mg/dl (7-17); Carbon Dioxide 20 mmol/L (22.0-30.0); Chloride 107 mmol/L (98-107); Sodium 137 mmol/L (136-145)
[2021-05-04 11:09] LABS: Alanine Aminotransferase 14 U/L (12-78); Aspartate Amino Transferase 20 U/L (14-36); Calcium 8.8 mg/dl (8.4-10.2); Creatinine Clearance Estimated 306 mL/min (50-200); Estimated Glomerular Filt Rate 154 ml/min (>60); GFR (African American) 187 ML/MIN (>60); Glucose 82 mg/dl (74-100)
[2021-05-04 11:28] LABS: Magnesium 1.4 mg/dl (1.6-2.3)
--- NOTE | 2021-05-04 12:13 | HMH.OBAPHP ---
OB - H&P: HPI Antepartum - History of Present Illness Chief complaint: Increased blood pressure History of present illness: She is a 20-year-old 1 para 0 at 36 and 5 weeks gestational age. Her blood pressure has been elevated for the last 48 hours. As result of that we are going to go ahead and deliver her. - History of Present Criteria for establishing EDC:: LMP confirmed by 1st trimester US care: good care Ultrasounds: normal 1st trimester US, normal mid trimester US Obstetrical complications: preeclampsia Medical complications: none - Labs Blood type: AB (-) negative Rubella: immune RPR/VDRL: nonreactive GBS status: negative HBsAG: unknown [facility] History I have reviewed the patient's past medical history: Yes Medical History: Denies:: Cancer, Diabetes Mellitus Type 1, Diabetes Mellitus Type 2 *Have you ever received a pneumonia vaccine?: No *Have you received a flu vaccine this season?: No Laterality Cases: Bilateral: Tonsillectomy Other Surgeries: No: Amputation: No Fractures: No - *Social History Smoking Status: Never smoker Alcohol Intake: never Alcohol Intake Frequency:: holidays/special occasions only Substance Use Type: denies use *Occupational Status:: unemployed Housing: house Household Members: significant other *Travel in the last 8 weeks: None Family Hx:: No significant family history Review of Systems - Review of Systems Review of systems:: pertinent systems reviewed and negative unless documented below Meds Home Medications Medication Instructions Recorded Confirmed Type Pnv No.95/Ferrous Fum/Folic AC 1 tab PO DAILY 11/29/20 05/04/21 History [ Caplet] ferrous sulfate 325 mg (65 mg 325 mg PO DAILY #30 tab 01/15/21 05/04/21 Rx iron) tablet famotidine 20 mg tablet 20 mg PO DAILY #30 tab 03/05/21 05/04/21 Rx Allergies Allergy/AdvReac Type Severity Reaction Status Date / Time oseltamivir [From Tamiflu] AdvReac Mild Rash Verified 05/04/21 09:18 OB - H&P: Exam - Constitutional no acute distress - Routine HEENT Exam Head: Present: normocephalic Eye: Present: EOMI, PERRL ENT: Present: mucous membranes moist - Routine Neck Exam Present: supple, full ROM - Routine Respiratory Exam Absent: accessory muscle use (good air entry bilaterally), respiratory distress, wheezes, crackles - Routine Cardiovascular Exam Present: RRR. Absent: murmur - Routine Abdominal Exam Present: soft, normoactive bowel sounds. Absent: tenderness, distended, guarding - Routine Rectal Exam Patient deferred: visual exam, digital exam - Routine Exam Patient deferred: external exam, groin exam, perineal exam - Routine Extremities Exam Present: full ROM. Absent: cyanosis, edema - Routine Skin Exam Present: intact. Absent: cyanosis - Routine Neurological Exam Present: alert, oriented X3 - Routine Psychiatric Exam Present: normal affect OB - Results - Labs Labs: Short CBC 05/04/21 Range/Units 10:30 WBC 13.5 H (4.8-10.8) K/mm3 Hgb 12.7 (12.2-16.2) g/dL Hct 38.7 (37.0-47.0) % Plt Count 284 (142-424) K/mm3 BMP 05/04/21 05/04/21 08:00 10:30 Sodium 137 Potassium 4.0 Chloride 107 Carbon Dioxide 20 L BUN 8 Creatinine 0.60 0.50 L Glucose 82 Calcium 8.8 Liver Function 05/04/21 Range/Units 10:30 AST 20 (14-36) U/L ALT 14 (12-78) U/L Urine 05/04/21 Range/Units 07:52 Urine Color Yellow (Yellow) Urine Appearance Clear (Clear) Urine pH 6.0 (5.0-8.5) Ur Specific [place] >= 1.030 (1.005-1.030) Urine Protein Negative (Negative) Urine Glucose (UA) Negative (Negative) OB - A/P Antepartum (1) Pre-eclampsia affecting , antepartum Status: Acute (2) Delivery by section of full-term infant Status: Acute - Additional Plan Planning to breastfeed?: Yes Plan: other Additional Information:: She is he
[2021-05-04 12:56] LABS: Cord Blood PH 7.33 (7.35-7.45)
--- NOTE | 2021-05-04 13:10 | P.CONPHA_ITS ---
[facility] Pharmacy VTE Monitoring - Patient Demographics Admission date: 05/04/21 Report Date: 05/04/21 Time: 13:10 Allergies/Adverse Reactions: Patient Allergies oseltamivir [From Tamiflu] Adverse Reaction (Mild, Verified 05/04/21 09:18) Rash Height: 1.73 m Weight: 109.769 kg Patient Problems: Current Active Problems Pre-eclampsia affecting , antepartum (Acute) Delivery by section of full-term (Acute) - VTE Risk Labs: VTE Related Lab Results Hgb 12.7 g/dL (12.2-16.2) 05/04/21 10:30 Hct 38.7 % (37.0-47.0) 05/04/21 10:30 Plt Count 284 K/mm3 (142-424) 05/04/21 10:30 PT 10.3 seconds (10.1-12.5) 05/04/21 10:30 INR 0.86 (0.9-1.1) L 05/04/21 10:30 APTT 26.8 seconds (22.8-30.6) 05/04/21 10:30 Fibrinogen 437 mg/dL (229.9-363.5) H 05/04/21 10:30 BUN 8 mg/dl (7-17) 05/04/21 10:30 Creatinine 0.50 mg/dl (0.52-1.04) L 05/04/21 10:30 Estimated Creat Clear 306 mL/min (50-200) H 05/04/21 10:30 Clinical Trial Participant: No - Prophylaxis VTE Prophylaxis Ordered?: Yes Types of VTE Prophylaxis: IPCS Knee High
--- NOTE | 2021-05-04 13:16 | HMH.PHAINT ---
MEDICATION RECONCILIATION COMPLETED ON PATIENT USING EXTERNAL FILL HISTORY FROM PHARMACY. -CHERYL SCHWARZ, BRANNOND
--- NOTE | 2021-05-04 13:24 | HMH.OPNOTE ---
Date of procedure: 05/04/21 Pre-op Diagnosis:: , -induced hypertension, pelvic disproportion, high had at term, Post-op Diagnosis:: , -induced hypertension, pelvic disproportion, high had at term Procedure performed:: Primary lower segment transverse section Surgeon:: Jan Diamond MD Supervisor Forming Department(s):: Dr. Cruz SOCIAL WORK MSW:: Sergei Gaviria Anesthesia: spinal Estimated blood loss (mL): 600 Clinical Note:: She is a 20-year-old 1 now para 0 at 36 and 5 weeks gestational age. She is been followed for the last 48 hours with increased blood pressure. She was started on magnesium sulfate today. Her blood pressures have been in the 150s over 100 range. She did have PIH blood work which was normal. On examination her pelvis was extremely narrow and the head was high. As a result of that we elected perform a primary lower segment transverse section. The risks and benefits of surgery were discussed the patient and her prior to surgery. Operative findings:: She delivered a liveborn male child at 12:46 PM in the afternoon of May 04, 2021. The baby had Apgars of 7 at 1 minute and 9 at 5 minutes. There was a loose nuchal cord. pH was 7.33. Ovaries and tubes appeared normal. Operative note:: She was taken to the operating room where spinal anesthesia was found be adequate. She was prepped and draped in normal sterile fashion in the supine position with a leftward tilt. A Lynch catheter was in the bladder. A Pfannenstiel skin incision was made with knife then carried through to the underlying layer of fascia with cautery. The fascia was opened in the midline with cautery and extended laterally using Wayne scissors. [place] clamps were applied to the superior aspect of the fascial incision which was tented up and the underlying rectus muscles dissected off using cautery. The Hugo clamps were then applied to the inferior aspect of the fascial incision which in a similar fashion was tented up and the underlying rectus muscles dissected off using cautery. The rectus muscles were then in the midline, the peritoneum identified, and entered sharply with Metzenbaum scissors. This incision was then extended superiorly and inferiorly with cautery. We had good visualization of the bladder inferiorly. The bladder peritoneum was then opened in the midline and extended laterally using Metzenbaum scissors. A bladder flap was created digitally. Transverse incision was made through the uterine muscle to the amnion. This incision was then extended laterally using fingers traction. The amnion was entered sharply with knife. There was clear amniotic fluid. The infant's head was then delivered atraumatically. A loose nuchal cord was then reduced. This was followed by the anterior shoulder and the rest of the infant's body atraumatically. The oropharynx and nasopharynx were bulb suctioned. The was then handed off to Dr. Hedrick who assigned Apgars of 7 at 1 minute and 9 at 5 minutes. We then obtained cord blood as well as cord pH. The pH was 7.33. Using gentle traction on the cord and countertraction on the fundus I was able to easily deliver the placenta intact. It had a normal three-vessel cord. The uterus was then cleared of clots and debris . The uterine incision was then closed using running 0 Vicryl suture in a locked fashion. A second layer of the same suture was used to imbricate the first layer. The bladder peritoneum was then closed using running 2-0 Vicryl suture in a locked fashion. The gutters and cul-de-sac were then cleared of clots and debris . Once again hemostasis was assured. The uterus was then returned to the abdominal cavity. The peritoneum was grasped with Lakeisha clamps and closed using running 2-0 Vicryl suture. The rectus muscles were then reapproximated using running 0 Vicryl suture. The fascia was closed using running #1 Vicryl suture. The
--- NOTE | 2021-05-04 13:34 | P.PN_ITS ---
[facility] Anesthesia Checklist - Patient Identification Patient Identification: Arm Band - Structural Data Admitted From: Inpatient Planned Operative Procedure/s: Primary C/S Consent for Planned Operative Procedure(s) Verified: Yes Verified Documents: Surgical Consent, History and Physical - NPO Status Verified Time NPO: 00:00 - Additional verifications Anesthesia Reactions: No - Airway Assessment C-Spine Mobility Assessed: Yes TMJ Mobility Assessed: Yes Dentition: Good Dentition - Neurological Assessment Level of Consciousness: Awake, Alert - Anesthesia Plan Anesthesia Risk discussed: Yes ASA Class: II Anesthesia Type: Spinal (with Bilateral TAP block) [facility] History I have reviewed the patient's past medical history: Yes Medical History: Denies:: Cancer, Diabetes Mellitus Type 1, Diabetes Mellitus Type 2 *Have you ever received a pneumonia vaccine?: No *Have you received a flu vaccine this season?: No Anesthesia experience/problems:: nac Laterality Cases: Bilateral: Tonsillectomy Other Surgeries: No: Amputation: No Fractures: No - *Social History Smoking Status: Never smoker Alcohol Intake: never Alcohol Intake Frequency:: holidays/special occasions only Substance Use Type: denies use *Occupational Status:: unemployed Housing: house Household Members: significant other *Travel in the last 8 weeks: None Family Hx:: No significant family history
--- NOTE | 2021-05-04 13:35 | HMH.ANESI ---
[facility] Anesthesia Record Part I Intake, IV Amount: 2,000 Estimated blood loss (mL): 600 Urine output (mL): 350 Blood Pressure: 141/77 SaO2: 99 Pulse Rate: 87 Respiratory Rate: 16 Temperature: 98.6 F Patient is:: Drowsy, Stable Stable to PACU at:: 13:30
[2021-05-05] VITALS (8 sets, daily range): BP systolic 121–144; BP diastolic 59–77; PULSE 78–100; RESP 18–20; TEMP 36.8; O2SAT 98–100
--- NOTE | 2021-05-05 08:50 | P.PN_ITS ---
Internal Medicine - PN: Subj *Date: 05/05/21 *Time: 08:50 Interval history: She is doing very well this morning. She is eating and drinking and ambulating. She is bottlefeeding. Her lochia is normal. Exam Vital signs and Labs for Last 24 Hours: Temp Pulse Resp BP Pulse Ox 98.2 F 78 18 121/59 L 100 05/05/21 08:00 05/05/21 08:00 05/05/21 08:00 05/05/21 08:00 05/05/21 08:00 Laboratory Results - last 24 hr 05/04/21 07:52: Urine Opiates Screen Negative, Urine Methadone Screen Negative, Ur Barbituates Screen Negative, Ur Phencyclidine Scrn Negative, Ur Amphetamines Screen Negative, U Benzodiazepines Scrn Negative, Urine Cocaine Screen Negative, U Marijuana (THC) Screen Negative 05/04/21 07:52: Urine Color Yellow, Urine Appearance Clear, Urine pH 6.0, Ur Specific [place] >= 1.030, Urine Protein Negative, Urine Glucose (UA) Negative, Urine Ketones Negative, Urine Blood Trace-i, Urine Nitrate Negative, Urine Bilirubin Negative, Urine Urobilinogen 0.2, Ur Leukocyte Esterase Negative, Urine RBC Occasional, Urine WBC None, Ur Squamous Epith Cells None, Urine Bacteria Trace 05/04/21 08:00: Urine Collection Time 24, Urine Total Volume 1450, Urine Creatinine 103, Ur Creatinine 24 Hour 1494, Height (in) 69, Weight (lb) 246, Creatinine Clearance 172.9 H, Ur Total Protein 24 Hr 508 H, Urine Total Protein 35.0 H 05/04/21 08:00: Creatinine 0.60 05/04/21 10:30: Blood Type AB Negative, Antibody Screen Negative 05/04/21 10:30: SARS-CoV-2 (PCR) Not detected, Influenza A Untype (PCR) Not detected, Influenza Type B (PCR) Not detected 05/04/21 10:30: WBC 13.5 H, RBC 4.64, Hgb 12.7, Hct 38.7, MCV 83.4, MCH 27.4, MCHC 32.8, RDW 13.5, Plt Count 284, MPV 9.0, Neut % (Auto) 77.6, Lymph % (Auto) 16.5, [place] % (Auto) 4.8, Eos % (Auto) 0.8, Baso % (Auto) 0.3, Neut # (Auto) 10.5 H, Lymph # (Auto) 2.2, [place] # (Auto) 0.7, Eos # (Auto) 0.1, Baso # (Auto) 0.0 05/04/21 10:30: PT 10.3, INR 0.86 L, APTT 26.8, Fibrinogen 437 H 05/04/21 10:30: D-Dimer 0.90 H, Sodium 137, Potassium 4.0, Chloride 107, Carbon Dioxide 20 L, Anion Gap 14.0, BUN 8, Creatinine 0.50 L, Estimated Creat Clear 306 H, Estimated GFR 154, Est GFR ( Amer) 187 D, Glucose 82, Uric Acid 5.0, Calcium 8.8, AST 20, ALT 14 05/04/21 11:15: Magnesium 1.4 L 05/04/21 12:50: Cord ABG pH 7.33 L I & O for Last 24 hours: Intake & Output 05/02/21 05/03/21 05/04/21 05/05/21 11:59 11:59 11:59 11:59 Intake Total 1999 Output Total 350 / 350 Balance 1650 / 1650 Weight 242 lb 242 lb - Constitutional no acute distress - *Routine HEENT Exam Head: Present: normocephalic Eye: Present: EOMI, PERRL ENT: Present: mucous membranes moist Assessment and Plan (1) Pre-eclampsia affecting , antepartum Status: Acute Category: Medical Code(s): O14.90 - Unspecified pre-eclampsia, unspecified trimester (2) Delivery by section of full-term Status: Acute Category: Medical Code(s): O82 - Encounter for delivery without indication - Assessment and plan all Dx Assessment and Plan for all problems:: She is doing very well. We will plan to send her home in 48 hours.
[2021-05-05 10:32] LABS: Basophils % 0.2 % (0.1-2.0); Eosinophils # 0.1 K/mm3 (0.0-0.4); Eosinophils % 0.8 % (0.1-12.0); Hematocrit 31.6 % (37.0-47.0); Lymphocytes # 2.2 K/mm3 (0.7-4.5); Lymphocytes % 17.1 % (10-50); Mean Corpuscular HGB Conc 32.3 g/dL (31.8-35.4); Mean Corpuscular Hemoglobin 27.5 pg (27.0-31.2); Mean Corpuscular Volume 84.9 fl (81-99); Mean Platelet Volume 9.1 fl (7.4-10.4); Monocytes # 0.6 K/mm3 (0.1-1.0); Monocytes % 4.4 % (1.7-9.3); Neutrophils % 77.4 % (37.0-80.0); Platelet Count 245 K/mm3 (142-424); Red Blood Count 3.73 M/mm3 (4.20-5.40); Red Cell Distribution Width 13.8 % (11.5-17.5); White Blood Count 12.9 K/mm3 (4.8-10.8)
[2021-05-05 11:23] LABS: Hemoglobin 10.2 g/dL (12.2-16.2)
[2021-05-06] VITALS (7 sets, daily range): BP systolic 122–152; BP diastolic 67–87; PULSE 76–96; RESP 18–20; TEMP 36.8–37.4; O2SAT 97–100
--- NOTE | 2021-05-06 19:39 | HMH.ACPN2 ---
Internal Medicine - PN: Subj *Date: 05/06/21 *Time: 19:39 Interval history: She continues to do well. Her pain is well controlled. She did get a tap block after her . She is just taking Tylenol and Toradol. She is not taking narcotics. Exam Vital signs and Labs for Last 24 Hours: Temp Pulse Resp BP Pulse Ox 98.3 F 89 20 122/79 97 05/06/21 16:00 05/06/21 16:00 05/06/21 16:00 05/06/21 16:00 05/06/21 16:00 I & O for Last 24 hours: Intake & Output 05/04/21 05/05/21 05/06/21 05/07/21 11:59 11:59 11:59 11:59 Intake Total 1999 / 1999 Output Total 350 / 350 Balance 1650 / 1650 Weight 242 lb 242 lb - Constitutional no acute distress - *Routine HEENT Exam Head: Present: normocephalic Eye: Present: EOMI, PERRL ENT: Present: mucous membranes moist Assessment and Plan (1) Pre-eclampsia affecting , antepartum Status: Acute Category: Medical Code(s): O14.90 - Unspecified pre-eclampsia, unspecified trimester (2) Delivery by section of full-term infant Status: Acute Category: Medical Code(s): O82 - Encounter for delivery without indication - Assessment and plan all Dx Assessment and Plan for all problems:: She continues to do well. We will plan to send her home tomorrow. Her blood pressures are also normalized.
[2021-05-07] VITALS: BP 128/72; PULSE 80; RESP 18; TEMP 36.8; O2SAT 96
[2021-05-07 04:32] VITALS: BP 146/84; PULSE 86; RESP 18; TEMP 36.9; O2SAT 97
--- NOTE | 2021-05-07 09:46 | HMH.OBDCSM ---
General - General Admission date:: 05/04/21 Discharge date: 05/07/21 HPI - History of Present Illness History of present illness: She is a 20-year-old 1 para 0 at 36 and 5 weeks gestational age. She had increased blood pressure in my office and had a very narrow pelvis with a high had at term. As result of that she was offered primary lower segment transverse section at term. Hospital Course Hospital Course: On May 04, 2021 she underwent a primary lower segment transverse section. She delivered a liveborn male child at 1246 p.m. The baby had Apgars of 7 at 1 minute and 9 at 5 minutes. She has done well and has remained afebrile throughout her hospitalization. She is eating and drinking and ambulating. She is not taking narcotics. She had a T AP block. She has AB- blood, she is rubella immune and her group B streptococcus status was pending. She will be discharged home today to follow-up with me in approximately 2 weeks time. She will continue with her vitamins and iron. She will continue with her Tylenol and ibuprofen. She was given a prescription for Percocet 5/325 number 8 tablets. Her condition on discharge is stable and improved. Her cloth washer operator is Dr. Hedrick. I have also given her a prescription for nifedipine 30 mg to take for her blood pressure if it gets elevated. She has not been taking any blood pressure medicine. She has had normalized blood pressure since delivery. She did receive 24 hours of magnesium sulfate. Rhogam Administration: Given Objective Vital signs: Temp Pulse Resp BP Pulse Ox 98.4 F 86 18 146/84 H 97 05/07/21 04:32 05/07/21 04:32 05/07/21 04:32 05/07/21 04:32 05/07/21 04:32 no acute distress - *Routine HEENT Exam Head: Present: normocephalic Eye: Present: EOMI, PERRL ENT: Present: mucous membranes moist DS: Diagnosis - Discharge Diagnosis (1) Pre-eclampsia affecting , antepartum Status: Acute (2) Delivery by section of full-term infant Status: Acute Discharge Plan - Patient Discharge Instructions ACTIVITY: No heavy lifting DIET: continue same diet Additional Instructions: Nothing in the vagina for 6 weeks No strenuous activity or heavy lifting. Patient Instructions: Depression, Hemorrhage, DI for Pre-eclampsia, DI for Surgical Site Infection, DI for Postoperative Pain, [facility] Post Discharge Instructions, Preventing the Spread of Coronavirus Discharge Instructions - Follow up Plan Follow up with: Jan Diamond MD [Staff Physician] - 05/21/21 1:45 pm Disposition: Home, Self-Care Condition at discharge:: Stable Home Medications: Home Medications Medication Instructions Recorded Confirmed Type Pnv No.95/Ferrous Fum/Folic AC 1 tab PO DAILY 11/29/20 05/04/21 History [ Caplet] Famotidine [Acid Road Roller Operator] 20 mg PO DAILY 05/04/21 05/04/21 History Ferrous Sulfate 325 mg PO DAILY 05/04/21 05/04/21 History NIFEdipine [Nifedipine ER] 30 mg PO DAILY #30 tab 05/07/21 Rx Oxycodone HCl/Acetaminophen 1 tab PO Q4-6H PRN #8 tablet 05/07/21 Rx [Percocet 5/325mg tablet] Prescriptions/Medication Reconciliation: New NIFEdipine [Nifedipine ER] 30 mg PO DAILY #30 tab Oxycodone HCl/Acetaminophen [Percocet 5/325mg tablet] 1 tab PO Q4-6H PRN #8 tablet PRN Reason: Severe Pain Continued Pnv No.95/Ferrous Fum/Folic AC [ Caplet] 1 tab PO DAILY Famotidine [Acid Road Roller Operator] 20 mg PO DAILY Ferrous Sulfate 325 mg PO DAILY - Problem Reconciliation Problems Reviewed?: Yes
--- NOTE | 2021-05-07 14:13 | P.PN_ITS ---
[facility] Anesthesia Record Part II Discharge Time: 14:00 Destination: Obstetric PACU nurse assessment reviewed?: Yes Patient Condition:: Good Anesthesia Complications:: None Swallowing reflex intact?: Yes Cyanosis?: No Blood Pressure: 136/73 Pulse Rate: 77 Temperature: 98.6 F Mental Status: Alert & Oriented Pain level:: 0 Nausea and/or vomitting:: None Intake, IV Amount: 0
[2021-05-07 14:14] VITALS: BP 136/73; PULSE 77; TEMP 37
== END 2021-05-07 13:10 | disposition home or self-care (01) | DRG 786 ==
PROVIDERS: Admitting Provider Nurse Practitioner Obstetrics & Gynecology; PCP Family Medicine; Visit Provider Nurse Practitioner Obstetrics & Gynecology
PROC: 10D00Z1 Extraction of Products of Conception, Low, Open Approach (ICD-10-PCS; CPT 59514; principal; 2021-05-04 12:00)
DX: O13.3 Gestational [pregnancy-induced] hypertension without significant proteinuria, third trimester (principal); O60.14X0 Preterm labor third trimester with preterm delivery third trimester, not applicable or unspecified; O33.0 Maternal care for disproportion due to deformity of maternal pelvic bones; Z3A.36 36 weeks gestation of pregnancy; Z37.0 Single live birth; O32.4XX0 Maternal care for high head at term, not applicable or unspecified; O69.81X0 Labor and delivery complicated by cord around neck, without compression, not applicable or unspecified
CPT/HCPCS: 59514; 36415; 59025; 80048; 80305; 81001; 82575; 82800; 83735; 84155; 84450; 84460; 84550; 85025; 85378; 85384; 85461; 85610; 85730; 86850; 94761; C9290; G0283; J2405; J2790; U0003

== ENCOUNTER 2021-07-03 09:05 | Emergency (ER) | payer BC, SELFPAY ==
[2021-07-03 09:06] VITALS: BP 140/84; PULSE 86; RESP 18; TEMP 37; O2SAT 98; BMI 33.2
[2021-07-03 09:58] LABS: UTC Strep Screen (Rapid) Negative (Negative)
--- NOTE | 2021-07-03 09:59 | HMH.EDUTC ---
[facility] [place] Clinical Impression: Otitis media Qualifiers: Otitis media type: unspecified Laterality: left Qualified Code(s): H66.92 - Otitis media, unspecified, left ear Disposition: Home, Self-Care Condition on Discharge: Good Instructions: Sore Throat, Middle Ear Infection Additional Instructions: *Monitor Temp, Over the counter Motrin or Tylenol as directed/as needed Tylenol every 4 hours and Motrin every 6 hours (as long as your family doctor has told you that you can take it) for fever or pain. and straight to ER if unable to lower temp less than 101.0 after medication given *Warm salt water gargles may help to soothe the throat *Throat Lozenges *Warm fluids like tea with honey may help to soothe the throat *Sleep elevated *Humidifier/Vaporizer Your throat swab was sent for culture. Those results are typically sent to your primary care. Be sure to follow up in 2-3 days with your family doctor/primary care physician if no improvement so they can review those result and treat if necessary. If you don?t have a primary care doctor, I recommend you get one but in the mean time, you will have to return to a walk in clinic Follow up IMMEDIATELY for new or worsening symptoms or no Noticeable improvement over the next 48-72 hours. 911 for difficulty breathing or swallowing You were tested for today for COVID19 your test result should be back in the next 24-48 hours, you may check your results on the [facility] My Health Portal if you have trouble logging on you may call You was given a handout with instructions for Self Quarantine and Self isolation for while you wait on test results and what to do if they are positive If you are positive the Health Dept will be contacting you also Make sure to take your Vitamins Vit. C Vit D and Zinc if you can take them Prescriptions: Amoxicillin [Amoxicillin 500mg Cap] 500 mg PO TID #21 cap Transmission Status: Pending to [id number] Fluticasone Propionate [Flonase 50mcg nasal spray 16gm] 1 spr NS DAILY #1 each Transmission Status: Pending to [id number] Referrals: Bao [address] [Primary Care Provider] - As needed Forms: Work/School Release Time of Disposition: 10:03 Medical Decision Making - Sameer Inquiry Pt receiving controlled substance: No Sameer was queried for this patient: No Vital Signs: 07/03/21 09:06 Temperature 98.6 F Temperature Source Oral Pulse Rate [Left Radial] 86 Respiratory Rate 18 Blood Pressure [Right Arm] 140/84 Blood Pressure Mean [Right Arm] 102 Blood Pressure Source [Right Arm] Automatic Cuff Blood Pressure Position [Right Arm] Sitting 02 Sat by Pulse Oximetry 98 Oxygen Delivery Method Room Air - Lab Data Lab results reviewed: Yes: I reviewed the patient's lab results. Lab Results 07/03/21 09:24: Strep Scn Rapid Clinic Negative Orders (Tests/Meds): ORDERS Category Date Time Status Covid-19 Nasal PCR ([facility]) Routine Lab 07/03/21 09:48 Received Strep Screen Confirmation Stat Micro 07/03/21 09:24 Received [facility] UTC HPI - General Stated complaint: sore throat, cough, congestion Time Seen by Provider: 07/03/21 09:59 Mode of Arrival: Ambulatory Source of Information: Patient Limitations: No Limitations Description of Symptoms (Recalled from Triage Doc. by RN): c/o sore throat, congestion in head since Friday HEENT Symptoms (Recalled from RN notes): Yes Resp Symptoms (Recalled from RN notes): No Skin Symptoms (Recalled from RN notes): No MS Symptoms (Recalled from RN notes): No Functional Status (Recalled from RN notes): na - History of Present Illness Provider Complaint: Patient states that she has been having full like feeling in ear for over a week and they have felt itchy and achy States that on Friday she started having sore throat and hurts when she swallows nasal congestion and pain in her left ear States that today she was worried she may have strep throat so she came in - Related Data Home Med
[2021-07-03 10:06] VITALS: BP 140/84; PULSE 86; RESP 18; TEMP 37; O2SAT 98
== END 2021-07-03 10:11 | disposition home or self-care (01) ==
PROVIDERS: Emergency Provider Nurse Practitioner; PCP Family Medicine
DX: H66.92 Otitis media, unspecified, left ear (principal); Z20.822 Contact with and (suspected) exposure to COVID-19
CPT/HCPCS: 87880; 99203; C9803; G0463; U0003; U0005

== ENCOUNTER → 2022-07-10 14:27 | Outpatient (CLI) | payer BC, SELFPAY ==
[2022-07-10 15:00] LABS: Basophils # 0.1 K/mm3 (0-0.2); Basophils % 0.8 % (0.1-2.0); Eosinophils # 0.1 K/mm3 (0.0-0.4); Eosinophils % 1.5 % (0.1-12.0); Hematocrit 45.4 % (37.0-47.0); Hemoglobin 14.4 g/dL (12.2-16.2); Lymphocytes # 2.6 K/mm3 (0.7-4.5); Lymphocytes % 28.8 % (10-50); Mean Corpuscular HGB Conc 31.7 g/dL (31.8-35.4); Mean Corpuscular Hemoglobin 28.2 pg (27.0-31.2); Mean Platelet Volume 9.7 fl (7.4-10.4); Monocytes # 0.4 K/mm3 (0.1-1.0); Monocytes % 4.5 % (1.7-9.3); Neutrophils # 5.9 K/mm3 (1.8-7.8); Neutrophils % 64.3 % (37.0-80.0); Platelet Count 359 K/mm3 (142-424); Red Cell Distribution Width 14.1 % (11.5-17.5); White Blood Count 9.2 K/mm3 (4.8-10.8)
[2022-07-10 15:30] LABS: Alanine Aminotransferase 33 U/L (12-78); Albumin Level 4.8 g/dl (3.5-5.0); Albumin/Globulin Ratio 1.7 (1.1-1.8); Alkaline Phosphatase 96 U/L (38-126); Anion Gap 17.5 mEq/L (5-15); Aspartate Amino Transferase 30 U/L (14-36); Bilirubin,Total 0.4 mg/dl (0.2-1.3); Blood Urea Nitrogen 9 mg/dl (7-17); Calcium 9.6 mg/dl (8.4-10.2); Carbon Dioxide 25 mmol/L (22.0-30.0); Chloride 104 mmol/L (98-107); Chol/HDL Ratio 4.6 (1-3.5); Cholesterol 166 mg/dl (140-200); Estimated Glomerular Filt Rate 104 ml/min (>60); GFR (African American) 125 ML/MIN (>60); Globulin 2.9 g/dL (1.3-3.2); Glucose 96 mg/dl (74-100); HDL Cholesterol 36 mg/dl (40-60); Potassium 4.5 mmoL/L (3.5-5.1); Sodium 142 mmol/L (136-145); Total Protein,Serum 7.7 g/dl (6.3-8.2); Triglycerides 68 mg/dl (30-150); VLDL Cholesterol 14 mg/dL (0-40)
[2022-07-10 15:52] LABS: Direct LDL Cholesterol 109.09 mg/dL (100-129)
[2022-07-10 15:53] LABS: 25-OH Vitamin D, Total 37.5 ng/mL (30-100)
[2022-07-10 16:02] LABS: Thyroid Stimulating Hormone 1.93 uIU/mL (0.465-4.68)
[2022-07-10 16:21] LABS: Vitamin B12 466 pg/mL (239-931)
== END ==
PROVIDERS: PCP Physician Assistant; Visit Provider Physician Assistant
DX: R53.83 Other fatigue (principal); Z79.899 Other long term (current) drug therapy
CPT/HCPCS: 80053; 80061; 82306; 82607; 84443; 85025

== ENCOUNTER → 2022-09-12 07:51 | Outpatient (CLI) | payer BC, SELFPAY ==
--- NOTE | 2022-09-12 07:54 | CA_ITS ---
FINAL REPORT CLINICAL HISTORY: HTN FINDINGS: DOPPLER RENAL VESSELS Intrarenal resistive indices on the right are 0.58, normal . Intrarenal resistive indices on the left are 0.52, normal . Right main renal artery systolic velocity: 197 cm/sec. Aortic-right renal artery flow velocity ratio: 1.0 COMMENT: No evidence of hemodynamically significant renal artery stenosis . Left main renal artery systolic velocity: 118 cm/sec. Aortic-left renal artery flow velocity ratio: 0.6 COMMENT: No evidence of hemodynamically significant renal artery stenosis . CONCLUSION: No evidence of hemodynamically significant renal artery stenosis CTA or gadolinium-enhanced MR may be considered as a more sensitive exam. Alternatively noncontrast MRI may be considered for assessing main renal arteries for stenosis as a more sensitive exam if the patient has renal insufficiency. Reviewed, Interpreted and Dictated by Jazmine Brooks MD Transcribed by Edwige Andrade Authenticated and [facility]
== END ==
PROVIDERS: PCP Physician Assistant; Visit Provider Physician Assistant
DX: I10 Essential (primary) hypertension (principal)
CPT/HCPCS: 93976

== ENCOUNTER → 2023-01-10 08:09 | Outpatient (CLI) | payer BC, SELFPAY ==
--- NOTE | 2023-01-10 08:09 | US_ITS ---
FINAL REPORT CLINICAL HISTORY: check placement of IUD FINDINGS: Transvaginal sonographic images of the pelvis were obtained. An IUD seen in the endometrial cavity. The right ovary measures up to 3.5 cm. The left ovary measures up to 2.8 cm. Small follicles are seen in both ovaries. There is a small amount of free fluid, may be physiologic or reactive. IMPRESSION: IUD in place. Reviewed, Interpreted and Dictated by Tab Hernandez III, MD Transcribed by Katherin Hurst Authenticated and [facility]
--- NOTE | 2023-01-10 08:09 | US_ITS ---
PROCEDURE INFORMATION: Exam: US Right Breast, Complete Exam date and time: 01/10/2023 9:00 AM Age: 22 years old Clinical indication: Breast pain; Bilateral; Additional info: Fribrocystic breast and family HX of breast cancer TECHNIQUE: Imaging protocol: Complete ultrasound of all four quadrants of the right breast and the retroareolar regions, including ultrasound of the axilla when performed. COMPARISON: No relevant prior studies available. FINDINGS: Breast: Sonographic images of the bright breast including the retroareolar region, all 4 quadrants and the axilla demonstrates a well-circumscribed round hypoechoic mass in the 9 o'clock axis 1 cm from the nipple measuring 0.8 x 0.6 x 1.0 cm in dimension. The finding is likely benign in etiology. No other solid or cystic masses are noted. No architectural distortion or acoustical shadowing. No skin thickening or axillary adenopathy. IMPRESSION: Probably benign sonographically visible breast mass. Ultrasound-guided core biopsy is recommended to ensure a benign etiology. In the absence of histologic sampling, given the family history of breast cancer, a diagnostic right mammogram is recommended for correlative purposes ASSESSMENT: BI-RADS Category 4: Suspicious
--- NOTE | 2023-01-10 08:09 | US_ITS ---
PROCEDURE INFORMATION: Exam: US Left Breast, Complete Exam date and time: 01/10/2023 9:15 AM Age: 22 years old Clinical indication: Breast pain; Bilateral; Additional info: Fribrocystic breast and family HX of breast cancer TECHNIQUE: Imaging protocol: Complete ultrasound of all four quadrants of the left breast and the retroareolar regions, including ultrasound of the axilla when performed. COMPARISON: No relevant prior studies available. FINDINGS: Breast: Sonographic images of the left breast including the retroareolar region, all 4 quadrants and the axilla do not demonstrate any solid or cystic masses. No architectural distortion or acoustical shadowing. No skin thickening or axillary adenopathy. IMPRESSION: No sonographic evidence of malignancy. ASSESSMENT: BI-RADS Category 1: Negative
== END ==
PROVIDERS: PCP Physician Assistant; Visit Provider Nurse Practitioner Obstetrics & Gynecology
DX: N60.11 Diffuse cystic mastopathy of right breast (principal); N60.12 Diffuse cystic mastopathy of left breast; Z80.3 Family history of malignant neoplasm of breast; Z97.5 Presence of (intrauterine) contraceptive device
CPT/HCPCS: 76641; 76830

== ENCOUNTER 2023-01-19 08:25 | Emergency (ER) | payer BC, SELFPAY ==
[2023-01-19 08:30] VITALS: BP 128/90; PULSE 90; RESP 18; TEMP 36.6; O2SAT 98; BMI 34.1
--- NOTE | 2023-01-19 08:43 | EXP.UTC ---
Discharge Plan Disposition Patient Disposition: Home, Self-Care Condition: Good Prescriptions Prescriptions: New cephalexin 500 mg capsule 500 mg PO QID 7 Days Qty: 28 0RF triamcinolone acetonide 0.1 % ointment 1 applic topical TID Qty: 30 0RF No Action lisinopril 10 mg tablet 10 mg PO DAILY Referrals Follow up/Referrals: Wen Collins PA [Primary Care Provider] - See instructions Activity Restrictions/Add. Instructions Additional Instructions/Restrictions: Take oral antibiotics as prescribed Use topical Triacinolone ointment on rash on upper thighs and chest do not apply to your face Oatmeal bathes may help to dry the rash and soothe the skin Follow up with your Family Doctor if no improvement or any worsening of symptoms Straight to ER if any life threatening symptoms Clinical Impressions Clinical Impression: Cellulitis Instructions Patient Instructions: Cellulitis, DI for Poison Katie Allergy, Poison Katie, Poison [place], Poison [place] Discharge ED Provider: Kareen Brandt [facility] HPI General Stated complaint: Rash RT leg w/ possible insect bite Mode of Arrival: Ambulatory Source of Information: Patient Limitations: No Limitations Time Seen by Provider: 01/19/23 08:44 Description of Symptoms (Recalled from Triage Doc. by RN): PATIENT STATES SHE GOT A POISON KATIE RASH TO FACE AND LEGS APPROX 1 WEEK AGO. THERE IS NOW AN AREA TO RIGHT LOWER LEG WHERE POISON KATIE WAS THAT IS RED, SWOLLEN, HOT TO TOUCH, SORE AND DRAINING. PATIENT DENIES FEVER HEENT Symptoms (Recalled from RN notes): No Resp Symptoms (Recalled from RN notes): No Skin Symptoms (Recalled from RN notes): Yes MS Symptoms (Recalled from RN notes): No Functional Status (Recalled from RN notes): WNL History of Present Illness Provider Complaint: Patient states that she had poison katie about a week ago on her face, neck, upper thighs and lower right leg States that she is not sure if she may have scratched it or something bite her where the cellulitis is but now the area on her right lower leg is red, hot tender to the touch and draining at times States that she thinks it may be infected Related Data Home Medications Medication Instructions Recorded Confirmed lisinopril 10 mg tablet 10 mg PO DAILY Hypertension 01/19/23 01/19/23 Previous Rx's Medication Instructions Recorded cephalexin 500 mg capsule 500 mg PO QID 7 days #28 caps 01/19/23 triamcinolone acetonide 0.1 % 1 applic topical TID #30 grams 01/19/23 topical ointment Allergies Allergy/AdvReac Type Severity Reaction Status Date / Time oseltamivir [From Tamiflu] AdvReac Mild Rash Verified 01/06/23 15:18 Worker's Comp Is this a Worker's Comp case?: No [facility] Disclaimer: The information contained in this section may have been updated after the patient was seen, as this information can be updated by other users. Medical History (Updated 01/19/23 @ 08:54 by Kareen Brandt APRN) Depression Hypertension Metabolic syndrome Obesity Surgical History (Updated 01/19/23 @ 08:42 by Corinna Adam RN) History of delivery History of tonsillectomy Patellar tendon rupture Social History Smoking Status: Never smoker alcohol intake: never substance use type: denies use current occupational status: employed Travel in the last 8 weeks: None household members: significant other housing: house ROS Obtained: Yes All systems reviewed & no additional complaints except as documented and Yes Systems reviewed as appropriate & no additional complaints except as documented Constitutional Constitutional: Reports system reviewed and no additional complaints, except as documented and Reports as per HPI ENT Ears, Nose, Mouth, and Throat: Reports system reviewed and no additional complaints, except as documented and Reports as per HPI Cardiovascular Cardiovascular: Reports system reviewed and no a
[2023-01-19 08:55] VITALS: BP 128/90; PULSE 90; RESP 18; TEMP 36.6; O2SAT 98
== END 2023-01-19 08:57 | disposition home or self-care (01) ==
PROVIDERS: Emergency Provider Nurse Practitioner; PCP Physician Assistant
DX: L03.115 Cellulitis of right lower limb (principal); I10 Essential (primary) hypertension; F32.9 Major depressive disorder, single episode, unspecified; E88.81 Metabolic syndrome and other insulin resistance; E66.9 Obesity, unspecified
CPT/HCPCS: 99212; 99214; G0463

== ENCOUNTER → 2023-01-27 08:19 | Outpatient (CLI) | payer BC, SELFPAY ==
--- NOTE | 2023-01-27 08:19 | US_ITS ---
FINAL REPORT CLINICAL HISTORY: RT BREAST NODULE 9:[address] Tai Jimenez -- FINDINGS: ULTRASOUND-GUIDED RIGHT BREAST CORE BIOPSY TECHNIQUE: Limited images were obtained to localize region of interest. The right breast was prepped in a routine sterile fashion and locally anesthetized with 1% lidocaine. Standard written informed consent was obtained. The biopsy needle was positioned within the outer periphery of the lesion. A total of 3 passes were made with a 16 gauge core biopsy needle. A biopsy marker clip was deployed in satisfactory position. Postbiopsy mammogram showed postbiopsy changes with clip in satisfactory position. Procedure was well tolerated . CONCLUSION: 1. Technically successful ultrasound guided core biopsy of right breast lesion as above. 2. Biopsy marker clip deployed Authenticated and [facility]
== END ==
PROVIDERS: PCP Physician Assistant; Visit Provider Nurse Practitioner Obstetrics & Gynecology
DX: N63.10 Unspecified lump in the right breast, unspecified quadrant (principal)
CPT/HCPCS: 19083

== ENCOUNTER → 2023-03-18 08:37 | Outpatient (CLI) | payer BC, SELFPAY ==
--- NOTE | 2023-03-18 08:40 | XR_ITS ---
FINAL REPORT CLINICAL HISTORY: Rt hand pain, hx of cyst FINDINGS: Right hand Three views were obtained. There is no acute fracture or dislocation. The joint spaces appear normal. There is soft tissue swelling at the distal portion of the 4th digit. There is no bony destruction or bony lesion. There is an old ulnar styloid process fracture. IMPRESSION: No acute process. Reviewed, Interpreted and Dictated by Destinee Jimenez MD Transcribed by Katherin Hurst Authenticated and [facility]
== END ==
PROVIDERS: PCP Physician Assistant; Visit Provider Orthopaedic Surgery
DX: M79.641 Pain in right hand (principal)
CPT/HCPCS: 73130

== ENCOUNTER → 2023-03-27 14:39 | Outpatient (CLI) | payer BC, SELFPAY ==
--- NOTE | 2023-03-27 14:39 | MR_ITS ---
PROCEDURE INFORMATION: Exam: MR Right Upper Extremity Other Than Joint Without and With Contrast; Hand Exam date and time: 03/27/2023 3:06 PM Age: 22 years old Clinical indication: Mass or lump; Fingers; Right; Additional info: Mass on finger 4th digit. Tender to the touch. Bleeds alot. Growing. On tip of 4th digit TECHNIQUE: Imaging protocol: MR of the right upper extremity without and with contrast. Exam focused on the hand. Contrast material: PROHANCE; Contrast volume: 20 ml; Contrast route: IV; COMPARISON: CR XR HAND RT MIN 3V 03/18/2023 8:54 AM FINDINGS: Limitations: Motion artifact. Bones/joints: Unremarkable. No bone abnormalities. Articular cartilage is normal. No joint effusion. Collateral ligaments of digits: Unremarkable. No evidence of tear. Flexor compartment tendons: Unremarkable. No evidence of tear. Extensor compartment tendons: Mild tenosynovitis involves the tendons of the second extensor compartment (extensor carpi radialis longus, extensor carpi radialis brevis). No tear. Soft tissues: The symptomatic mass is located at the tip of the ring finger. In this region, there is a nonspecific mass involving the skin and subcutaneous fat measuring 0.7 x 0.7 x 0.4 cm (AP, ML, CC), as measured on series 9/image 5 and series 16/image 20. The mass demonstrates decreased T1 and intensely increased T2 signal. After administration of IV contrast, the mass demonstrates intense enhancement. There is no involvement of the underlying bone. The differential diagnosis is broad including a vascular malformation and others soft tissue neoplasms. A malignant neoplasm would be less common than a benign neoplasm in a patient of this age but remains in the differential diagnosis. Since a malignant tumor is in the differential diagnosis, tissue diagnosis is recommended. An incidentally noted ganglion cyst along the dorsal aspect of the wrist measures 0.3 x 0.6 x 0.5 cm (series 9/image 49, series 16/image 19). IMPRESSION: Symptomatic region located at the tip of the ring finger corresponds to a nonspecific intensely enhancing 0.7 x 0.7 x 0.4 cm mass confined to the skin and subcutaneous fat with a broad differential diagnosis that includes both benign and malignant entities. Since a malignant tumor is in the differential diagnosis, tissue diagnosis is recommended.
[2023-03-27 15:16] LABS: Blood Urea Nitrogen 11 mg/dl (7-17); Estimated Glomerular Filt Rate 103 ml/min (>60); GFR (African American) 124 ML/MIN (>60)
== END ==
LOC: RAD 14:39
PROVIDERS: PCP Physician Assistant; Visit Provider Orthopaedic Surgery
DX: R22.31 Localized swelling, mass and lump, right upper limb (principal)
CPT/HCPCS: 36415; 73220; 82565; 84520; A9576

== ENCOUNTER 2023-05-11 03:01 | Emergency (ER) | payer BC, SELFPAY ==
[2023-05-11 03:03] VITALS: BP 144/82; PULSE 89; RESP 16; TEMP 36.8; O2SAT 99; BMI 34.0
--- NOTE | 2023-05-11 03:34 | HMH.EDGENADL ---
Discharge Plan Disposition Patient Disposition: Home, Self-Care Condition: Good Prescriptions Prescriptions: New nitrofurantoin macrocrystal 100 mg capsule 100 mg PO BID 5 Days Qty: 10 0RF Rx Instructions: must administer with a meal/food No Action lisinopril 10 mg tablet 10 mg PO DAILY Referrals Follow up/Referrals: Wen Collins PA [Primary Care Provider] - See instructions Activity Restrictions/Add. Instructions Additional Instructions/Restrictions: Please take Macrobid as prescribed. Please follow-up with your primary care provider. Please return to the emergency department if you develop any new or worsening symptoms or become concerned for your health. Clinical Impressions Clinical Impression: Cystitis Instructions Patient Instructions: DI for Urinary Tract Infection (UTI), DI for Urinary Tract Infection in Children Discharge ED Provider: Shane Fox Adult HPI General Chief complaint: Urogenital-Female Stated complaint: Burning with urination Time Seen by Provider: 05/11/23 03:07 Mode of Arrival: Ambulatory Source of Information: Patient Limitations: No Limitations Description of Symptoms (Recalled from ER Triage Doc. by RN): pt reports having UTI symptoms for 2 weeks, had a decrease of symptoms after taking a few doses of a old amoxicillin prescription. now having pressure, and burning when urinating History of Present Illness HPI narrative: 22-year-old female reportedly previously healthy presents with burning urinary pressure, burning with urination. She reports that she had similar symptoms about 2 weeks ago but they resolved for 5 days ago after she started taking an old amoxicillin prescription. She reports that she has an IUD and is confident she is not . She denies any other symptoms at this time. Specifically denies any flank pain fever or systemic symptoms. Related Data Home Medications Medication Instructions Recorded Confirmed lisinopril 10 mg tablet 10 mg PO DAILY Hypertension 01/19/23 04/03/23 Previous Rx's Medication Instructions Recorded nitrofurantoin macrocrystal 100 mg 100 mg PO BID 5 days #10 caps 05/11/23 capsule Allergies Allergy/AdvReac Type Severity Reaction Status Date / Time oseltamivir [From Tamiflu] AdvReac Mild Rash Verified 04/03/23 11:02 [facility] Disclaimer: The information contained in this section may have been updated after the patient was seen, as this information can be updated by other users. Medical History Depression Hypertension Metabolic syndrome Obesity Surgical History History of delivery History of tonsillectomy Patellar tendon rupture Social History Smoking Status: Never smoker alcohol intake: never substance use type: denies use current occupational status: employed Travel in the last 8 weeks: None household members: significant other housing: house ROS Obtained: Yes All systems reviewed & no additional complaints except as documented Physical Exam General General appearance: alert and in no apparent distress Head Head exam: atraumatic and normocephalic Eye Eye exam: Present normal appearance, PERRL and EOMI ENT ENT exam: Present normal oropharynx and normal external ear exam Neck Neck exam: Present normal inspection and full ROM Chest Chest inspection: Present normal inspection and symmetric chest wall rise; Absent tenderness Respiratory Respiratory exam: Present normal lung sounds bilaterally; Absent respiratory distress Cardiovascular Cardiovascular exam: Present regular rate and normal rhythm Abdominal Exam Abdominal exam: Present soft and tenderness (Suprapubic); Absent distention or guarding Extremities Exam Extremities exam: Present normal inspection; Absent edema or joint s
[2023-05-11 03:39] LABS: Appearance,Urine CLOUDY (Clear); Bilirubin,Urine Negative (Negative); Blood, Urine 3+ (Negative); Color,Urine YELLOW (Yellow); Glucose,Urine (UA) Negative (Negative); Ketones,Urine Negative (Negative); Leukocyte Esterase,Urine TRACE (Negative); Microscopic, Urine URINE MICROSCOPIC (MICROSCOPIC); Nitrate,Urine Negative (Negative); Protein,Urine 1+ (Negative); Specific Gravity, Urine >= 1.030 (1.005-1.030); Urobilinogen,Urine 0.2 EU/dl (0.2)
[2023-05-11 03:59] LABS: WBC,Urine 50-100 #/hpf (0-3)
[2023-05-11 04:00] LABS: Bacteria,Urine 2+ /lpf
[2023-05-11 04:13] VITALS: BP 145/92; PULSE 73; RESP 18; TEMP 36.8
== END 2023-05-11 04:14 | disposition home or self-care (01) ==
PROVIDERS: Emergency Provider Emergency Medicine; PCP Physician Assistant
DX: N30.00 Acute cystitis without hematuria (principal); F32.A Depression, unspecified; I10 Essential (primary) hypertension; E66.9 Obesity, unspecified; E88.81 Metabolic syndrome and other insulin resistance
CPT/HCPCS: 81001; 87086; 87088; 87186; 99283; 99284

== ENCOUNTER 2023-09-22 08:16 | Emergency (ER) | payer BC, SELFPAY ==
[2023-09-22 08:50] VITALS: BP 134/87; PULSE 96; RESP 18; TEMP 36.8; O2SAT 98; BMI 34.9
--- NOTE | 2023-09-22 09:08 | EXP.UTC ---
Discharge Plan Disposition Patient Disposition: Home, Self-Care Condition: Good Prescriptions Prescriptions: New amoxicillin 500 mg capsule 500 mg PO BID 10 Days Qty: 20 0RF No Action nifedipine 30 mg tablet extended release 30 mg PO DAILY Qty: 30 3RF Referrals Follow up/Referrals: Wen Collins PA [Primary Care Provider] - See instructions Activity Restrictions/Add. Instructions Additional Instructions/Restrictions: *Monitor Temp, Over the counter Motrin or Tylenol as directed/as needed Tylenol every 4 hours and Motrin every 6 hours (as long as your family doctor has told you that you can take it) for fever or pain. and straight to ER if unable to lower temp less than 101.0 after medication given *Warm salt water gargles may help to soothe the throat *Throat Lozenges? *Warm fluids like tea with honey may help to soothe the throat? *Sleep elevated *Humidifier/Vaporizer Take medication as prescribed Your throat swab was sent for culture. Those results are typically sent to your primary care. Be sure to follow up in 2-3 days with your family doctor/primary care physician if no improvement so they can review those result and treat if necessary. If you don?t have a primary care doctor, I recommend you get one but in the mean time, you will have to return to a walk in clinic Follow up IMMEDIATELY for new or worsening symptoms or no Noticeable improvement over the next 48-72 hours. 911 for difficulty breathing or swallowing Clinical Impressions Clinical Impression: URI (upper respiratory infection) Qualifiers: URI type: unspecified URI Qualified Code(s): J06.9 - Acute upper respiratory infection, unspecified Instructions Patient Instructions: Sore Throat, DI for Nasal Congestion Discharge ED Provider: Kareen Brandt [facility] General Stated complaint: sore/swelling throat, Mode of Arrival: Ambulatory Source of Information: Patient Limitations: No Limitations Time Seen by Provider: 09/22/23 09:08 Description of Symptoms (Recalled from Triage Doc. by RN): PATIENT C/O SORE THROAT AND NOT FEELING WELL SINCE YESTERDAY. SHE STATES HER SON RECENTLY HAD STREP HEENT Symptoms (Recalled from RN notes): Yes Resp Symptoms (Recalled from RN notes): No Skin Symptoms (Recalled from RN notes): No MS Symptoms (Recalled from RN notes): No Functional Status (Recalled from RN notes): WNL History of Present Illness Provider Complaint: Patient states that her son recently had strep and she has been caring from him States that yesterday she started with sore throat and nasal congestion and over all not feeling well States that she has been having headache and chills States that last night she felt like her throat was swollen and very irritated so she came in to get checked Related Data Previous Rx's Medication Instructions Recorded nifedipine 30 mg tablet,extended 30 mg PO DAILY #30 tabs 09/05/23 release amoxicillin 500 mg capsule 500 mg PO BID 10 days #20 caps 09/22/23 Allergies Allergy/AdvReac Type Severity Reaction Status Date / Time oseltamivir [From Tamiflu] AdvReac Mild Rash Verified 09/05/23 08:36 Worker's Comp Is this a Worker's Comp case?: No [facility] Disclaimer: The information contained in this section may have been updated after the patient was seen, as this information can be updated by other users. Medical History Depression Hypertension Metabolic syndrome Obesity Surgical History History of delivery History of tonsillectomy Patellar tendon rupture Family History (Updated 09/05/23 @ 08:31 by AGATA Robledo) Other No significant family history Social History Smoking Status: Never smoker alcohol intake: never substance use type: denies use current occupational status: employed Travel in the last 8 weeks: None household members: significant other housing: house ROS Obtained: Yes All systems reviewed & no additional complaints except as documented and Yes Systems reviewed as appropriate & no additional complaints except as documented Constitutional Constitutional: Reports system reviewed and no additional complaints, except as documented, Reports as per HPI, Reports body ache, Reports chills and Reports headache(s) ENT Ears, Nose, Mouth, and Throat: Reports system reviewed and no additional complaints, except as documented, Reports as per HPI, Reports headache(s), Reports nasal congestion and Reports sore throat Cardiovascular Cardiovascular: Reports system reviewed and no additional complaints, except as documented and Reports as per HPI Respiratory Respiratory: Reports system reviewed and no additional complaints, except as documented and Reports as per HPI Gastrointestinal Gastrointestingal: Reports system reviewed and no additional complaints, except as documented and as per HPI Musculoskeletal Musculoskeletal: Reports system reviewed and no additional complaints, except as documented and Reports as per HPI Neurologic Neurologic: Reports headache(s) Physical Exam General General appearance: alert and in no apparent distress ENT ENT exam: Present mucous membranes moist Expanded ENT Exam Nose exam: Present sinus tenderness Throat exam: Present other (Pharyngeal erythema noted with PND) Respiratory Respiratory exam: Present normal lung sounds bilaterally; Absent respiratory distress or wheezes Cardiovascular Cardiovascular exam: Present regular rate, normal rhythm and normal heart sounds Abdominal Exam Abdominal exam: Present soft and normal bowel sounds; Absent distention or tenderness Neurological Exam Neurological exam: Present alert, oriented X3 and normal gait Medical Decision Making Sameer Inquiry Pt receiving controlled substance: No Sameer was queried for this patient: No Vital Signs: 09/22/23 08:50 Temperature 98.2 F Temperature Source Oral Pulse Rate [Left Brachial] 96 H Respiratory Rate 18 Blood Pressure [Left Arm] 134/87 Blood Pressure Mean [Left Arm] 102 Blood Pressure Source [Left Arm] Automatic Cuff Blood Pressure Position [Left Arm] Sitting 02 Sat by Pulse Oximetry 98 Oxygen Delivery Method Room Air Lab Data Lab results reviewed: Yes I reviewed the patient's lab results.
[2023-09-22 09:14] LABS: UTC Strep Screen (Rapid) Negative (Negative)
[2023-09-22 09:30] VITALS: BP 134/87; PULSE 96; RESP 18; TEMP 36.8; O2SAT 98
== END 2023-09-22 09:32 | disposition home or self-care (01) ==
PROVIDERS: Emergency Provider Nurse Practitioner; PCP Physician Assistant
DX: R51.9 Headache, unspecified (principal); J06.9 Acute upper respiratory infection, unspecified; R07.0 Pain in throat; R09.81 Nasal congestion; R68.83 Chills (without fever); M79.18 Myalgia, other site; I10 Essential (primary) hypertension
CPT/HCPCS: 87880; 99212; 99214; G0463

== ENCOUNTER 2023-12-04 13:35 | Outpatient (CLI) | payer BC, SELFPAY ==
[2023-12-04 11:42] LABS: Basophils # 0.1 K/mm3 (0-0.2); Basophils % 0.5 % (0.1-2.0); Eosinophils # 0.2 K/mm3 (0.0-0.4); Eosinophils % 1.8 % (0.1-12.0); Hematocrit 44.9 % (37.0-47.0); Hemoglobin 14.3 g/dL (12.2-16.2); Lymphocytes # 2.4 K/mm3 (0.7-4.5); Lymphocytes % 25.6 % (10-50); Mean Corpuscular HGB Conc 31.9 g/dL (31.8-35.4); Mean Corpuscular Hemoglobin 29.3 pg (27.0-31.2); Mean Corpuscular Volume 91.7 fl (81-99); Mean Platelet Volume 8.7 fl (7.4-10.4); Monocytes # 0.5 K/mm3 (0.1-1.0); Monocytes % 4.8 % (1.7-9.3); Neutrophils # 6.3 K/mm3 (1.8-7.8); Neutrophils % 67.3 % (37.0-80.0); Platelet Count 330 K/mm3 (142-424); Red Cell Distribution Width 12.8 % (11.5-17.5); White Blood Count 9.4 K/mm3 (4.8-10.8)
[2023-12-04 12:06] LABS: Alanine Aminotransferase 37 U/L (12-78); Albumin Level 4.6 g/dl (3.5-5.0); Albumin/Globulin Ratio 1.6 (1.1-1.8); Alkaline Phosphatase 65 U/L (38-126); Anion Gap 10.5 mEq/L (5-15); Aspartate Amino Transferase 35 U/L (14-36); Bilirubin,Total 0.6 mg/dl (0.2-1.3); Blood Urea Nitrogen 11 mg/dl (7-17); Calcium 9.6 mg/dl (8.4-10.2); Carbon Dioxide 28 mmol/L (22.0-30.0); Chloride 106 mmol/L (98-107); Chol/HDL Ratio 5.6 (1-3.5); Cholesterol 169 mg/dl (140-200); Estimated Glomerular Filt Rate 103 ml/min (>60); GFR (African American) 124 ML/MIN (>60); Globulin 2.8 g/dL (1.3-3.2); Glucose 103 mg/dl (74-100); HDL Cholesterol 30 mg/dl (40-60); Potassium 4.5 mmoL/L (3.5-5.1); Sodium 140 mmol/L (136-145); Total Protein,Serum 7.4 g/dl (6.3-8.2); Triglycerides 92 mg/dl (30-150); VLDL Cholesterol 18 mg/dL (0-40)
[2023-12-04 12:17] LABS: Direct LDL Cholesterol 110.92 mg/dL (100-129)
[2023-12-04 12:22] LABS: 25-OH Vitamin D, Total 22.4 ng/mL (30-100)
[2023-12-04 12:36] LABS: Thyroid Stimulating Hormone 1.78 uIU/mL (0.465-4.68)
[2023-12-04 18:44] LABS: Hemoglobin A1C 5.5 % (4.0-6.0)
== END 2023-12-04 23:59 | disposition home or self-care (01) ==
LOC: LAB.DROPOF 13:35
PROVIDERS: PCP Physician Assistant; Visit Provider Physician Assistant
DX: I10 Essential (primary) hypertension (principal); Z68.35 Body mass index [BMI] 35.0-35.9, adult; E66.9 Obesity, unspecified; E88.89 Other specified metabolic disorders
CPT/HCPCS: 80053; 80061; 82306; 83036; 84443; 85025

== ENCOUNTER 2023-12-15 16:05 | Outpatient (CLI) | payer BC, SELFPAY ==
[2023-12-15 17:36] LABS: HCG,Quantitative 15 mIU/ml (0-5.42)
[2023-12-17 08:18] LABS: Progesterone 10.6 ng/mL (.)
== END 2023-12-15 23:59 | disposition home or self-care (01) ==
LOC: LAB 16:05
PROVIDERS: PCP Physician Assistant; Visit Provider Obstetrics & Gynecology
DX: Z32.01 Encounter for pregnancy test, result positive (principal)
CPT/HCPCS: 36415; 84144; 84702

== ENCOUNTER 2023-12-23 07:26 | Outpatient (CLI) | payer BC, SELFPAY ==
[2023-12-23 09:59] LABS: HCG,Quantitative 578 mIU/ml (0-5.42)
== END 2023-12-23 23:59 | disposition home or self-care (01) ==
LOC: LAB 07:27
PROVIDERS: PCP Physician Assistant; Visit Provider Obstetrics & Gynecology
DX: Z32.01 Encounter for pregnancy test, result positive (principal)
CPT/HCPCS: 36415; 84702

== ENCOUNTER 2024-01-01 12:35 | Outpatient (CLI) | payer BC, SELFPAY ==
[2024-01-01 13:08] LABS: Basophils # 0.1 K/mm3 (0-0.2); Basophils % 0.5 % (0.1-2.0); Eosinophils # 0.2 K/mm3 (0.0-0.4); Eosinophils % 1.1 % (0.1-12.0); Hematocrit 39.7 % (37.0-47.0); Hemoglobin 13.3 g/dL (12.2-16.2); Lymphocytes # 2.4 K/mm3 (0.7-4.5); Lymphocytes % 17.8 % (10-50); Mean Corpuscular HGB Conc 33.5 g/dL (31.8-35.4); Mean Corpuscular Hemoglobin 29.7 pg (27.0-31.2); Mean Corpuscular Volume 88.6 fl (81-99); Mean Platelet Volume 8.4 fl (7.4-10.4); Monocytes # 0.5 K/mm3 (0.1-1.0); Neutrophils # 10.2 K/mm3 (1.8-7.8); Neutrophils % 76.6 % (37.0-80.0); Platelet Count 310 K/mm3 (142-424); Red Blood Count 4.49 M/mm3 (4.20-5.40); Red Cell Distribution Width 13.3 % (11.5-17.5); White Blood Count 13.3 K/mm3 (4.8-10.8)
[2024-01-01 14:52] LABS: HCG,Quantitative 19921 mIU/ml (0-5.42)
[2024-01-03 09:43] LABS: Rubella Antibodies, IgG 1.72 index (Immune >0.99)
[2024-01-03 11:33] LABS: HCV Ab Non Reactive (Non Reactive); HIV Screen 4th Generation wRfx Non Reactive (Non Reactive); Hepatitis B Surface Antigen Negative (Negative)
[2024-01-03 12:10] LABS: Rapid Plasma Reagin Ab Titer Non Reactive titer (NonRea<1:1)
[2024-01-05 23:07] LABS: Neisseria gonorrhoeae, NAA Negative (Negative)
== END 2024-01-01 23:59 | disposition home or self-care (01) ==
LOC: LAB 12:36
PROVIDERS: PCP Physician Assistant; Visit Provider Obstetrics & Gynecology
DX: O26.891 Other specified pregnancy related conditions, first trimester (principal); Z3A.01 Less than 8 weeks gestation of pregnancy
CPT/HCPCS: 36415; 84702; 85025; 86593; 86703; 86762; 86850; 87086; 87088; 87186; 87340; 87491; 87591; G0432

== ENCOUNTER 2024-01-07 13:44 | Outpatient (CLI) | payer BC, SELFPAY ==
--- NOTE | 2024-01-07 13:44 | US_ITS ---
PROCEDURE: US OB <= 14 WEEKS FETUS CLINICAL INDICATION: Dates/Viability Confirmation of COMPARISON: No exams were available for comparison FINDINGS: Transvaginal sonographic images of the pelvis were obtained. From her last menstrual period she is 7weeks 3days. An intrauterine gestational sac is present with a pole with a crown-rump length of 0.68cm This correlates to a gestational age of 6weeks 4days. heart tones are present with an FHR of 121bpm. Yolk sac is noted. The yolk sac measures 4.1mm. The right ovary is seen and appears normal. There is a follicle in the right ovary measuring 2.6 cm x 2.8 cm x 2.3 cm. The left ovary is seen and appears normal. There is no fluid in the cul-de-sac. IMPRESSION: 1. Viable fetus within the uterine cavity. 2. The fetus measures 6 weeks 4 days and the AC should be revised to reflect this. The new AC will be 08/28/2024. 3. Both ovaries are seen and appear normal. Dictated by: Jan Diamond MD 01/07/2024 15:06 Jan Diamond MD in OV 01/07/2024 15:06
== END 2024-01-07 23:59 | disposition home or self-care (01) ==
LOC: RAD 13:44
PROVIDERS: PCP Physician Assistant; Visit Provider Obstetrics & Gynecology
DX: O26.891 Other specified pregnancy related conditions, first trimester (principal); O36.80X0 Pregnancy with inconclusive fetal viability, not applicable or unspecified; Z3A.01 Less than 8 weeks gestation of pregnancy
CPT/HCPCS: 76801

== ENCOUNTER 2024-01-24 11:01 | Outpatient (CLI) | payer BC, SELFPAY ==
[2024-01-24 12:00] LABS: Collection Time,Urine 24 hours; Total Volume,Urine 800 mL (600-1600)
[2024-01-24 12:01] LABS: Patient Height,Urine 69 inches; Patient Weight,Urine 233 lbs
[2024-01-24 12:32] LABS: Creatinine 24 Hour,Urine 1520 mg/24hr (630-2500); Creatinine Clearance Urine 138.5 mL/min (25-115); Creatinine,Urine Random 190 mg/dL (Not Estab.); Total Protein 24 Hour,Urine 56 mg/24 hr (40-90)
[2024-01-24 12:37] LABS: Microalbumin/Creatinine Ratio 8.2
== END 2024-01-24 23:59 | disposition home or self-care (01) ==
LOC: LAB 11:02
PROVIDERS: PCP Physician Assistant; Visit Provider Obstetrics & Gynecology
DX: O26.891 Other specified pregnancy related conditions, first trimester (principal); Z3A.08 8 weeks gestation of pregnancy
CPT/HCPCS: 82043; 82570; 82575; 84155

== ENCOUNTER 2024-04-14 12:43 | Outpatient (CLI) | payer BC, SELFPAY ==
--- NOTE | 2024-04-14 12:44 | US_ITS ---
PROCEDURE: US OB /MATERNAL DETAIL CLINICAL INDICATION: 20 week anatomy scan COMPARISON: US US OB <= 14 WEEKS FETUS from 01/07/2024 FINDINGS: Transabdominal sonographic images of the pelvis were obtained. From her established due date she is 20 weeks 4 days. Single viable intrauterine gestation. Cephalic position. Placenta: Anteriorplacenta grade 1. There is an average amount of fluid. The cervix appears satisfactory. Closed and measuring 3.8 cm in length. Complete survey performed and was unremarkable on the submitted images as in PACS. No discrete anomalies identified on survey imaging by technologist. Active fetus. Three-vessel cord with satisfactory umbilical cord insertion. 4- chamber heart noted. Situs, aortic arch, LVOT, RVOT, three-vessel view appear normal. Survey of brain & ventricles Unremarkable. Cerebellum, thalamus, choroid plexus, cisterna magna appear normal. Face and neck survey unremarkable. Profile, nasion, lips and nose appeared normal. Diaphragm and chest views unremarkable. Abdomen: Both kidneys noted and unremarkable. Stomach and bladder noted and satisfactory. Spine: Survey of the spine satisfactory with no anomalies identified nor imaged. Cervical, thoracic, lower spine appear normal. Both arms and legs noted. Amniotic Fluid: Adequate. MVP 3.89 cm Measurements: Average ultrasound age 21weeks 0 days. Estimated due date by ultrasound age 0108/25/2024. Estimated weight 374g BPD = 21weeks 2days HC = 20weeks 6days AC = 21weeks 2days FL = 20weeks 1day Growth Percentile= 55 Heart Rate = 149bpm Cerebellum = 20weeks 2days Humerus = 21weeks HC/AC is 1.15 FL/BPD is 0.64 FL/AC is 0.2 IMPRESSION: 1. Viable fetus in the cephalic presentation with an anterior placenta grade 1. 2. The fluid is within normal limits with an MVP 3.89 cm. 3. Anatomical scan appears normal. 4. biometry is consistent with the dates. Dictated by: Jan Diamond MD 04/14/2024 16:26 Jan Diamond MD in OV 04/14/2024 16:26
== END 2024-04-14 23:59 | disposition home or self-care (01) ==
LOC: RAD 12:44
PROVIDERS: PCP Physician Assistant; Visit Provider Obstetrics & Gynecology
DX: Z36.89 Encounter for other specified antenatal screening (principal); Z3A.20 20 weeks gestation of pregnancy
CPT/HCPCS: 76811

== ENCOUNTER 2024-05-12 09:38 | Outpatient (CLI) | payer BC, SELFPAY ==
[2024-05-12 10:10] LABS: Basophils # 0.1 K/mm3 (0-0.2); Basophils % 0.5 % (0.1-2.0); Eosinophils # 0.1 K/mm3 (0.0-0.4); Eosinophils % 1.1 % (0.1-12.0); Hematocrit 37.2 % (37.0-47.0); Hemoglobin 12.1 g/dL (12.2-16.2); Lymphocytes # 1.9 K/mm3 (0.7-4.5); Lymphocytes % 15.4 % (10-50); Mean Corpuscular HGB Conc 32.6 g/dL (31.8-35.4); Mean Corpuscular Hemoglobin 29.5 pg (27.0-31.2); Mean Corpuscular Volume 90.6 fl (81-99); Mean Platelet Volume 8.6 fl (7.4-10.4); Monocytes # 0.5 K/mm3 (0.1-1.0); Monocytes % 3.7 % (1.7-9.3); Neutrophils % 79.4 % (37.0-80.0); Platelet Count 258 K/mm3 (142-424); Red Cell Distribution Width 14.1 % (11.5-17.5); White Blood Count 12.6 K/mm3 (4.8-10.8)
[2024-05-12 10:27] LABS: Chloride 109 mmol/L (98-107)
[2024-05-12 10:28] LABS: Albumin Level 3.5 g/dl (3.5-5.0); Sodium 136 mmol/L (136-145)
[2024-05-12 10:30] LABS: Alanine Aminotransferase 16 U/L (12-78); Aspartate Amino Transferase 19 U/L (14-36); Blood Urea Nitrogen 5 mg/dl (7-17); Carbon Dioxide 22 mmol/L (22.0-30.0); Estimated Glomerular Filt Rate 150 ml/min (>60); GFR (African American) 182 ML/MIN (>60)
[2024-05-12 10:31] LABS: Albumin/Globulin Ratio 1.3 (1.1-1.8); Alkaline Phosphatase 63 U/L (38-126); Bilirubin,Total 0.5 mg/dl (0.2-1.3); Calcium 8.6 mg/dl (8.4-10.2); Globulin 2.7 g/dL (1.3-3.2); Glucose 86 mg/dl (74-100); Total Protein,Serum 6.2 g/dl (6.3-8.2)
[2024-05-12 10:59] LABS: Lactate Dehydrogenase 160 U/L (313-618); Uric Acid 3.9 mg/dl (2.5-6.2)
== END 2024-05-12 23:59 | disposition home or self-care (01) ==
LOC: LAB 09:39
PROVIDERS: PCP Physician Assistant; Visit Provider Obstetrics & Gynecology
DX: O13.9 Gestational [pregnancy-induced] hypertension without significant proteinuria, unspecified trimester (principal); Z3A.24 24 weeks gestation of pregnancy
CPT/HCPCS: 36415; 80053; 83615; 84550; 85025

== ENCOUNTER 2024-06-09 10:01 | Outpatient (CLI) | payer BC, SELFPAY ==
[2024-06-09 10:29] LABS: Basophils # 0.1 K/mm3 (0-0.2); Basophils % 0.6 % (0.1-2.0); Eosinophils # 0.2 K/mm3 (0.0-0.4); Eosinophils % 1.2 % (0.1-12.0); Hematocrit 36.7 % (37.0-47.0); Hemoglobin 12.3 g/dL (12.2-16.2); Lymphocytes # 1.9 K/mm3 (0.7-4.5); Lymphocytes % 13.8 % (10-50); Mean Corpuscular HGB Conc 33.5 g/dL (31.8-35.4); Mean Corpuscular Hemoglobin 28.5 pg (27.0-31.2); Mean Platelet Volume 8.6 fl (7.4-10.4); Monocytes # 0.7 K/mm3 (0.1-1.0); Monocytes % 4.9 % (1.7-9.3); Neutrophils % 79.4 % (37.0-80.0); Platelet Count 271 K/mm3 (142-424); Red Blood Count 4.32 M/mm3 (4.20-5.40); Red Cell Distribution Width 14.5 % (11.5-17.5); White Blood Count 13.8 K/mm3 (4.8-10.8)
[2024-06-09 10:39] LABS: Glucose,Fasting 102 mg/dl (74-100)
[2024-06-09] MEDS: RHO(D) IMMUNE GLOBULIN 1,500 UNIT (300MCG) SYRINGE 300 MCG IM (11:37)
[2024-06-09 11:38] VITALS: BP 130/68; PULSE 96; RESP 20; TEMP 36.8; O2SAT 98
[2024-06-09 11:40] LABS: Glucose 1 Hour 138 mg/dL (74-100)
[2024-06-10 12:16] LABS: Rapid Plasma Reagin Ab Titer Non Reactive titer (NonRea<1:1)
== END 2024-06-09 12:00 | disposition home or self-care (01) ==
LOC: LAB 10:02
PROVIDERS: PCP Physician Assistant; Visit Provider Obstetrics & Gynecology
DX: Z34.90 Encounter for supervision of normal pregnancy, unspecified, unspecified trimester (principal)
CPT/HCPCS: 82951; 85025; 86593; 96372; J2790

== ENCOUNTER 2024-06-24 17:29 | Outpatient (CLI) | payer BC, SELFPAY | END 2024-06-24 23:59 | disposition home or self-care (01) | LOC: LAB.DROPOF 17:30 | PROVIDERS: PCP Obstetrics & Gynecology; Visit Provider Obstetrics & Gynecology | DX: Z34.90 Encounter for supervision of normal pregnancy, unspecified, unspecified trimester (principal) | CPT/HCPCS: 87086 ==

== ENCOUNTER 2024-07-08 12:40 | Outpatient (CLI) | payer BC, SELFPAY ==
--- NOTE | 2024-07-08 12:41 | US_ITS ---
PROCEDURE: US OB BIOPHYSICAL PROFILE CLINICAL INDICATION: Chronic Hypertention, Obesity COMPARISON: US US OB <= 14 WEEKS FETUS from 01/07/2024 US US OB /MATERNAL DETAIL from 04/14/2024 FINDINGS: Transabdominal sonographic images of the uterus were obtained. From her established due date she is 33weeks 2days. The following parameters are obtained: Viable Fetus in the cephalic presentation with an anterior placenta grade 2. Average ultrasound age is 34weeks 5days Estimated weight 2,392g Cervix measures 4.3 cm. Measurements: heart Rate = 143bpm BPD = 35weeks 3days, 93 percentile HC = 35weeks 3days, 66 percentile AC = 34weeks 2days, 79 percentile FL = 33weeks 4days, 46 percentile HC/AC is 1.04 FL/BPD is 0.74 FL/AC is 0.21 72 percentile Amniotic fluid index: 17.76cm, MVP a 8.75 cm. Qualitative AFV:2 Breathing movements: 2 Gross Body Movements: 2 Tone: 2 Biophysical profile score: 8 No obvious anomalies evident.Kidneys, stomach, bladder, four-chamber heart, three-vessel cord appear normal. There is bilateral minimal renal pelvis dilation measuring 3.1 mm and 4.2 mm IMPRESSION: 1. Viable fetus in the cephalic presentation with an anterior placenta grade 2. 2. The fluid is within normal limits with an amniotic fluid index of 17.76 cm, MVP 8.75 cm. 3. Biophysical profile is 8/8 with good breathing movement and movement seen. 4. There has been good interval growth with the fetus currently 72nd percentile. 5. Limited anatomical scan appears normal. 6. Dictated by: Jan Diamond MD 07/08/2024 17:56 Jan Diamond MD in [place] 07/08/2024 17:56
== END 2024-07-08 23:59 | disposition home or self-care (01) ==
LOC: RAD 12:41
PROVIDERS: PCP Physician Assistant; Visit Provider Obstetrics & Gynecology
DX: O10.913 Unspecified pre-existing hypertension complicating pregnancy, third trimester (principal); E66.9 Obesity, unspecified; Z3A.33 33 weeks gestation of pregnancy
CPT/HCPCS: 76816; 76819

== ENCOUNTER 2024-07-21 13:26 | Outpatient (CLI) | payer BC, SELFPAY ==
--- NOTE | 2024-07-21 13:27 | US_ITS ---
PROCEDURE: US OB BIOPHYSICAL PROFILE CLINICAL INDICATION: Chronic Hypertention, Obesity COMPARISON: US US OB <= 14 WEEKS FETUS from 01/07/2024 US US OB /MATERNAL DETAIL from 04/14/2024 US US OB BIOPHYSICAL PROFILE from 07/08/2024 FINDINGS: Transabdominal sonographic images of the uterus were obtained. From her established due date she is 34weeks 4days. The following parameters are obtained: Viable Fetus in the cephalic presentation with an anterior placenta grade 2. Measurements: heart Rate = 134bpm Amniotic fluid index: 13.94cm, MVP 5.62 cm Qualitative AFV:2 Breathing movements: 2 Gross Body Movements: 2 Tone: 2 Biophysical profile score: 8 No obvious anomalies evident.Kidneys, profile, bladder, stomach, four-chamber heart, three-vessel cord appear normal. There is mild bilateral renal pelvis dilation measuring 5.1 mm and 3.1 mm. IMPRESSION: 1. Viable fetus in the cephalic presentation with an anterior placenta grade 2. 2. The fluid is within normal limits with an amniotic fluid index 13.94 cm, MVP 5.62 cm. 3. Biophysical profile is 8/8 with good breathing movement and movement seen. 4. There is mild bilateral renal pelvis dilation measuring 5.1 mm and 3.1 mm. Suggest follow-up with composite engineer. 5. The rest of the limited anatomical scan appear normal. Dictated by: Jan Diamond MD 07/21/2024 18:16 Jan Diamond MD in [place] 07/21/2024 18:16
== END 2024-07-21 23:59 | disposition home or self-care (01) ==
LOC: RAD 13:27
PROVIDERS: PCP Physician Assistant; Visit Provider Obstetrics & Gynecology
DX: O10.913 Unspecified pre-existing hypertension complicating pregnancy, third trimester (principal); O99.213 Obesity complicating pregnancy, third trimester; Z3A.34 34 weeks gestation of pregnancy; E66.9 Obesity, unspecified
CPT/HCPCS: 76819

== ENCOUNTER 2024-07-29 14:04 | Outpatient (CLI) | payer BC, SELFPAY ==
[2024-07-29 14:15] VITALS: BP 145/86; PULSE 86; RESP 17; TEMP 37; O2SAT 98; BMI 36.1
[2024-07-29] MEDS: LACTATED RINGERS 1000ML 1,000 ML 999 ML IV (14:34)
== END 2024-07-29 16:00 | disposition home or self-care (01) ==
LOC: OBOUT 14:06 → OB 14:07
PROVIDERS: PCP Physician Assistant; Visit Provider Obstetrics & Gynecology
DX: O36.8130 Decreased fetal movements, third trimester, not applicable or unspecified (principal); Z3A.35 35 weeks gestation of pregnancy
CPT/HCPCS: G0463; J7120

== ENCOUNTER 2024-08-05 12:45 | Outpatient (CLI) | payer BC, SELFPAY ==
--- NOTE | 2024-08-05 12:46 | US_ITS ---
PROCEDURE: US OB BIOPHYSICAL PROFILE CLINICAL INDICATION: Chronic Hypertension/obesity COMPARISON: US US OB <= 14 WEEKS FETUS from 01/07/2024 US US OB /MATERNAL DETAIL from 04/14/2024 US US OB BIOPHYSICAL PROFILE from 07/08/2024 US US OB BIOPHYSICAL PROFILE from 07/21/2024 FINDINGS: Transabdominal sonographic images of the uterus were obtained. From her established due date she is 36weeks 5days. The following parameters are obtained: Viable Fetus in the cephalic presentation with an anterior placenta grade 2. Average ultrasound age is 39weeks 1day Estimated weight 3,728g, 8 LB 40Z Measurements: heart Rate = 149bpm BPD = 39weeks 0 days, 98 percentile HC = 39weeks 4days, 85 percentile AC = 39weeks 6days, >98 percentile FL = 37weeks 5days, 73 percentile HC/AC is 0.95 FL/BPD is 0.77 FL/AC is 0.21 >98 percentile Amniotic fluid index: 15.92cm , MVP 7.03 cm Qualitative AFV:2 Breathing movements: 2 Gross Body Movements: 2 Tone: 2 Biophysical profile score: 8 No obvious anomalies evident.Kidneys, Stomach, bladder, four-chamber heart, three-vessel cord appear normal. IMPRESSION: 1. Viable fetus in the cephalic presentation with an anterior placenta grade 2. 2. The fluid is within normal limits with an amniotic fluid index 15.92 cm, MVP 7.03 cm. 3. Biophysical profile is 8 out of 8 with good breathing movement and movement seen. 4. There has been good interval growth with the fetus currently greater than the 98th percentile. The abdominal circumference is 2-1/2 weeks ahead. 5. Limited anatomical scan appears normal. Dictated by: Jan Diamond MD 08/06/2024 04:02 Jan Diamond MD in [place] 08/06/2024 04:02
== END 2024-08-05 23:59 | disposition home or self-care (01) ==
LOC: RAD 12:46
PROVIDERS: PCP Physician Assistant; Visit Provider Obstetrics & Gynecology
DX: O10.913 Unspecified pre-existing hypertension complicating pregnancy, third trimester (principal); Z3A.36 36 weeks gestation of pregnancy; E66.9 Obesity, unspecified
CPT/HCPCS: 76816; 76819; 86403

== ENCOUNTER 2024-08-05 14:00 | Outpatient (CLI) | payer BC, SELFPAY | END 2024-08-05 23:59 | disposition home or self-care (01) | LOC: LAB.DROPOF 08-11 14:00 | PROVIDERS: PCP Obstetrics & Gynecology; Visit Provider Obstetrics & Gynecology | DX: O10.913 Unspecified pre-existing hypertension complicating pregnancy, third trimester (principal) | CPT/HCPCS: 86403 ==

== ENCOUNTER 2024-08-07 10:29 | Outpatient (CLI) | payer BC, SELFPAY ==
[2024-08-07 10:36] VITALS: BMI 35.7
[2024-08-07 10:44] VITALS: BP 113/67; PULSE 96; RESP 19; TEMP 36.7; O2SAT 98
[2024-08-07 10:44] LABS: Microscopic, Urine URINE MICROSCOPIC (MICROSCOPIC)
[2024-08-07 10:53] VITALS: BMI 35.7
[2024-08-07 10:53] LABS: Appearance,Urine CLEAR (Clear); Blood, Urine Negative (Negative); Color,Urine ORANGE (Yellow); Glucose,Urine (UA) Negative (Negative); Ketones,Urine TRACE (Negative); Leukocyte Esterase,Urine TRACE (Negative); Nitrate,Urine Negative (Negative); Protein,Urine Negative (Negative); Specific Gravity, Urine 1.025 (1.005-1.030); Urobilinogen,Urine 0.2 EU/dl (0.2)
[2024-08-07 10:55] LABS: Bilirubin,Urine 1+ (Negative)
[2024-08-07 11:02] VITALS: BP 136/68
[2024-08-07 11:05] LABS: Amphetamine/Metha Screen,Urine Negative ng/ml (<1000)
[2024-08-07 11:06] LABS: Barbiturates Screen,Urine Negative ng/ml (<200); Benzodiazepines Screen,Urine Negative ng/ml (<200)
[2024-08-07 11:07] LABS: Cannabinoid Screen,Urine Negative ng/ml (<50)
[2024-08-07 11:08] LABS: Cocaine Screen,Urine Negative ng/ml (<300); Methadone Screen,Urine Negative ng/ml (<300)
[2024-08-07 11:09] LABS: Opiate Screen,Urine Negative ng/ml (<300)
[2024-08-07 11:10] LABS: Phencyclidine Screen,Urine Negative ng/ml (<25)
[2024-08-07 11:14] LABS: WBC,Urine Occasional #/hpf (0-3)
== END 2024-08-07 11:25 | disposition home or self-care (01) ==
LOC: OBOUT 10:31 → OB 10:33
PROVIDERS: PCP Physician Assistant; Visit Provider Obstetrics & Gynecology
DX: O13.3 Gestational [pregnancy-induced] hypertension without significant proteinuria, third trimester (principal); Z3A.37 37 weeks gestation of pregnancy
CPT/HCPCS: 80307; 81001; G0463

== ENCOUNTER 2024-08-09 08:00 | Emergency (ER) | payer BC, SELFPAY ==
[2024-08-09 08:15] VITALS: BP 122/66; PULSE 85; RESP 19; TEMP 36.8; O2SAT 98; BMI 34.4
--- NOTE | 2024-08-09 08:30 | EXP.UTC ---
Discharge Plan Disposition Patient Disposition: Home, Self-Care Condition: Good Prescriptions Prescriptions: New amoxicillin 500 mg capsule 500 mg PO TID 7 Days Qty: 21 0RF No Action aspirin [Adult Aspirin Regimen] 81 mg tablet,delayed release (DR/EC) 81 mg PO DAILY Classic 28 mg iron- 800 mcg tablet 1 tab PO DAILY labetalol 200 mg tablet See Rx Instructions .ROUTE .COMPLEX Qty: 60 4RF Dose Instruction: Take 1 tablet by mouth twice daily Rx Instructions: Take 1 tablet by mouth twice daily Referrals Follow up/Referrals: Darrian Alvarado MD [Primary Care Provider] - See instructions Activity Restrictions/Add. Instructions Additional Instructions/Restrictions: *Monitor Temp, Over the counter Motrin or Tylenol as directed/as needed Tylenol every 4 hours and Motrin every 6 hours (as long as your family doctor has told you that you can take it) for fever or pain. and straight to ER if unable to lower temp less than 101.0 after medication given *Warm salt water gargles may help to soothe the throat and help with drainage? *Warm fluids like tea with honey may help to soothe the throat??and help with cough and nasal congestion? *Sleep elevated *Humidifier/Vaporizer Take medication as prescribed Follow up IMMEDIATELY for new or worsening symptoms or no Noticeable improvement over the next 48-72 hours. 911 for difficulty breathing or swallowing Clinical Impressions Clinical Impression: Otitis media Instructions Patient Instructions: Middle Ear Infection, Amoxicillin Print Language Print Language: French Discharge ED Provider: Kareen Brandt [facility] HPI General Stated complaint: chest congestion, pain in L ear Mode of Arrival: Ambulatory Source of Information: Patient Limitations: No Limitations Time Seen by Provider: 08/09/24 08:30 Description of Symptoms (Recalled from Triage Doc. by RN): PATIENT C/O LEFT EAR PAIN AND CONGESTION X 2 DAYS. PATIENT IS 37 WEEKS HEENT Symptoms (Recalled from RN notes): Yes Resp Symptoms (Recalled from RN notes): No Skin Symptoms (Recalled from RN notes): No MS Symptoms (Recalled from RN notes): No Functional Status (Recalled from RN notes): WNL History of Present Illness Provider Complaint: Patient states that she is 37 wks OB states that she has been having pain in her left ear and for the last couple of days has had a cough and some chest congestion States today the ear was hurting her worse so she came in to get it checked Related Data Home Medications ?Medication ?Instructions ?Recorded ?Confirmed aspirin 81 mg tablet,delayed 81 mg PO DAILY 02/20/24 08/09/24 release (Adult Aspirin Regimen) vits no.126-ferrous fum 1 tab PO DAILY 02/20/24 08/09/24 28 mg iron-folic acid 800 mcg tablet (Classic ) Previous Rx's ?Medication ?Instructions ?Recorded labetalol 200 mg tablet See Rx Instructions .Route 06/12/24 .COMPLEX #60 tabs amoxicillin 500 mg capsule 500 mg PO TID 7 days #21 caps 08/09/24 Allergies Allergy/AdvReac Type Severity Reaction Status Date / Time oseltamivir (From Tamiflu) AdvReac Mild Rash Verified 08/05/24 13:28 Worker's Comp Is this a Worker's Comp case?: No [facility] Disclaimer: The information contained in this section may have been updated after the patient was seen, as this information can be updated by other users. Medical History Metabolic syndrome Obesity Hypertension Depression Surgical History History of tonsillectomy History of delivery Desires repeat, declines tubal Patellar tendon rupture Family History Other No significant family history Social History Smoking Status: Never smoker alcohol intake: never substance use type: denies use current occupational status: other Travel in the last 8 weeks: None household members: significant other housing: house Have you lived/traveled outside US in past 30 days?: No Contact w/someone who lives/traveled outside US past 30 days?: No Exposure to someone with infectious disease in past 14 days?: No Do you have a fever (greater than 100.4 F or 38 C)?: No Have you tested positive for COVID-19: No Exposed to someone with COVID-19 in past 14 days?: No Do you have a sore throat?: Yes Do you have a cough?: Yes Do you have any weakness?: No Do you have any diarrhea?: No Are you experiencing any unusual bleeding?: No Do you have any muscle aches/pain?: No Do you have any abdominal pain?: No Are you experiencing loss of taste or smell?: No ROS Obtained: Yes All systems reviewed & no additional complaints except as documented and Yes Systems reviewed as appropriate & no additional complaints except as documented Constitutional Constitutional: Reports system reviewed and no additional complaints, except as documented and Reports as per HPI ENT Ears, Nose, Mouth, and Throat: Reports system reviewed and no additional complaints, except as documented, Reports as per HPI and Reports otalgia Cardiovascular Cardiovascular: Reports system reviewed and no additional complaints, except as documented and Reports as per HPI Respiratory Respiratory: Reports system reviewed and no additional complaints, except as documented, Reports as per HPI, Denies shortness of breath, Reports chest congestion and Reports cough Gastrointestinal Gastrointestingal: Reports system reviewed and no additional complaints, except as documented and as per HPI Physical Exam General General appearance: alert and in no apparent distress ENT ENT exam: Present mucous membranes moist Expanded ENT Exam TM/Canal exam: Left TM: erythema and bulging Nose exam: Absent sinus tenderness Throat exam: Present normal inspection Respiratory Respiratory exam: Present normal lung sounds bilaterally; Absent respiratory distress or wheezes Cardiovascular Cardiovascular exam: Present regular rate, normal rhythm and normal heart sounds Abdominal Exam Abdominal exam: Present soft and normal bowel sounds; Absent distention or tenderness Neurological Exam Neurological exam: Present alert, oriented X3 and normal gait Medical Decision Making Medical Records Screening: Per USPSTF and CDC recommendations, given the prevalence of disease in our region, it is our hospital?s policy to screen for HIV and viral Hepatitis for all patients aged 18 and over and those with ongoing risk factors. Sameer Inquiry Pt receiving controlled substance: No Sameer was queried for this patient: No Vital Signs: 08/09/24 08:15 Temperature 98.2 F Temperature Source Oral Pulse Rate [Left] 85 Respiratory Rate 19 Blood Pressure [Left Arm] 122/66 Blood Pressure Mean [Left Arm] 84 Blood Pressure Source [Left Arm] Automatic Cuff Blood Pressure Position [Left Arm] Sitting 02 Sat by Pulse Oximetry 98 Oxygen Delivery Method Room Air Medical Decision Narrative: Patient is 37wks OB medication discussed with pharmacy
[2024-08-09 08:39] VITALS: BP 122/66; PULSE 85; RESP 19; TEMP 36.8; O2SAT 98
== END 2024-08-09 08:42 | disposition home or self-care (01) ==
PROVIDERS: Emergency Provider Nurse Practitioner; PCP Internal Medicine
DX: H66.93 Otitis media, unspecified, bilateral (principal)
CPT/HCPCS: 99213; G0381

== ENCOUNTER 2024-08-13 04:51 | Inpatient (IN) | payer BC, SELFPAY ==
[2024-08-13] VITALS (8 sets, daily range): BP systolic 110–133; BP diastolic 64–82; PULSE 78–88; RESP 14–20; TEMP 36.6–36.9; O2SAT 97–100; BMI 34.4
[2024-08-13 05:44] LABS: Hematocrit 32.7 % (37.0-47.0); Hemoglobin 10.7 g/dL (12.2-16.2); Mean Corpuscular HGB Conc 32.7 g/dL (31.8-35.4); Mean Corpuscular Hemoglobin 26.6 pg (27.0-31.2); Mean Corpuscular Volume 81.3 fl (81-99); Platelet Count 268 K/mm3 (142-424); Red Blood Count 4.02 M/mm3 (4.20-5.40); Red Cell Distribution Width 13.5 % (11.5-17.5); White Blood Count 13.5 K/mm3 (4.8-10.8)
[2024-08-13 05:45] LABS: Basophils # 0.1 K/mm3 (0-0.2); Basophils % 0.8 % (0.1-2.0); Eosinophils # 0.2 K/mm3 (0.0-0.4); Eosinophils % 1.8 % (0.1-12.0); Lymphocytes # 2.4 K/mm3 (0.7-4.5); Lymphocytes % 18.1 % (10-50); Mean Platelet Volume 11.2 fl (7.4-10.4); Monocytes # 0.9 K/mm3 (0.1-1.0); Monocytes % 6.6 % (1.7-9.3); Neutrophils # 9.1 K/mm3 (1.8-7.8); Neutrophils % 67.9 % (37.0-80.0)
[2024-08-13 05:47] LABS: Albumin Level 3.3 g/dl (3.5-5.0); Chloride 109 mmol/L (98-107); Potassium 3.9 mmoL/L (3.5-5.1); Sodium 132 mmol/L (136-145)
[2024-08-13 05:49] LABS: Blood Urea Nitrogen 6 mg/dl (7-17); Creatinine Clearance Estimated 287 mL/min (50-200); Estimated Glomerular Filt Rate 150 ml/min (>60); GFR (African American) 182 ML/MIN (>60)
[2024-08-13 05:50] LABS: Alanine Aminotransferase 24 U/L (12-78); Alkaline Phosphatase 164 U/L (38-126); Anion Gap 4.9 mEq/L (5-15); Aspartate Amino Transferase 32 U/L (14-36); Bilirubin,Total 0.5 mg/dl (0.2-1.3); Calcium 8.7 mg/dl (8.4-10.2); Carbon Dioxide 22 mmol/L (22.0-30.0); Globulin 3.2 g/dL (1.3-3.2); Glucose 90 mg/dl (74-100); Total Protein,Serum 6.5 g/dl (6.3-8.2)
--- NOTE | 2024-08-13 07:03 | P.PNANES_ITS ---
[facility] Disclaimer: The information contained in this section may have been updated after the patient was seen, as this information can be updated by other users. Medical History Metabolic syndrome Obesity Hypertension Depression Surgical History History of tonsillectomy History of delivery Patellar tendon rupture Family History Other No significant family history Social History Smoking Status: Never smoker alcohol intake: never substance use type: denies use current occupational status: other Travel in the last 8 weeks: None household members: significant other housing: house Have you lived/traveled outside US in past 30 days?: No Contact w/someone who lives/traveled outside US past 30 days?: No Exposure to someone with infectious disease in past 14 days?: No Do you have a fever (greater than 100.4 F or 38 C)?: No Have you tested positive for COVID-19: No Exposed to someone with COVID-19 in past 14 days?: No Do you have a sore throat?: No Do you have a cough?: No Do you have any weakness?: No Do you have any diarrhea?: No Are you experiencing any unusual bleeding?: No Do you have any muscle aches/pain?: No Do you have any abdominal pain?: No Are you experiencing loss of taste or smell?: No [facility] Anesthesia Checklist Patient Identification Patient Identification: Arm Band and Verbal (Name & ) Structural Data Admitted From: Home Planned Operative Procedure/s: C/S Consent for Planned Operative Procedure(s) Verified: Yes Verified Documents: Surgical Consent and History and Physical NPO Status Verified Time NPO: 00:00 Chart Verification Results Verified: CBC Additional verifications Patient : Yes Anesthesia Reactions: No Airway Assessment Mallampati Score:: Class II C-Spine Mobility Assessed: Yes TMJ Mobility Assessed: Yes Dentition: Good Dentition Neurological Assessment Level of Consciousness: Awake Hx Seizures: No Numbness or tingling in extremities: No Anesthesia Plan Anesthesia Risk discussed: Yes Anesthesia Plan: Verified ASA Class: II Anesthesia Type: Spinal
--- NOTE | 2024-08-13 07:15 | EXP.HP ---
History of Present Illness *Admission Date: 08/13/24 *Reason for visit:: delivery *History of present illness: Lelia Santacruz is a 23-year-old at 37 weeks and 6 days gestation who presented to labor and delivery for a scheduled delivery secondary to chronic hypertension. Her has been complicated by previous with. Delivery, obesity with a BMI of 35 at the start of , and chronic hypertension on labetalol 200 mg twice daily. Recently for the last week she has been complaining of decreased movement and since 35 weeks she has been noting increases in her blood pressure at home. She is also had persistent headaches. On presentation patient reported persistent decreased movement and denies any leakage of fluid or vaginal bleeding. AB+, antibody negative, rubella immune, hepatitis B negative, hepatitis C negative, RPR negative, HIV negative 1 hour GTT: 138 GBS negative PFSH PFSH Disclaimer: The information contained in this section may have been updated after the patient was seen, as this information can be updated by other users. Medical History Metabolic syndrome Obesity Hypertension Depression Surgical History History of tonsillectomy History of delivery Patellar tendon rupture Family History Other No significant family history Social History Smoking Status: Never smoker alcohol intake: never substance use type: denies use current occupational status: other Travel in the last 8 weeks: None household members: significant other housing: house Have you lived/traveled outside US in past 30 days?: No Contact w/someone who lives/traveled outside US past 30 days?: No Exposure to someone with infectious disease in past 14 days?: No Do you have a fever (greater than 100.4 F or 38 C)?: No Have you tested positive for COVID-19: No Exposed to someone with COVID-19 in past 14 days?: No Do you have a sore throat?: No Do you have a cough?: No Do you have any weakness?: No Do you have any diarrhea?: No Are you experiencing any unusual bleeding?: No Do you have any muscle aches/pain?: No Do you have any abdominal pain?: No Are you experiencing loss of taste or smell?: No Other Medical History Have you received the Flu Vaccine for this season: No Have you received the Pneumonia Vaccine: No Review of Systems Review of Systems Review of systems (narrative): Review of Systems Constitutional: Denies fever, chills, and sweats Eyes: Denies vision change/ pain Respiratory: Denies cough and shortness of breath Cardiovascular: Denies chest pain and lightheadedness Gastrointestinal: Denies abdominal pain. Denies nausea, vomiting. Genitourinary: Denies dysuria and incontinence Musculoskeletal: Denies shoulder pain and back pain Neurological: Denies change in speech or headaches Meds Home Medications and Allergies Home Medications ?Medication ?Instructions ?Recorded ?Confirmed ?Type aspirin 81 mg tablet,delayed 81 mg PO DAILY 02/20/24 08/13/24 History release (Adult Aspirin Regimen) vits no.126-ferrous fum 1 tab PO DAILY 02/20/24 08/13/24 History 28 mg iron-folic acid 800 mcg tablet (Classic ) labetalol 200 mg tablet See Rx Instructions .Route 06/12/24 08/13/24 Rx .COMPLEX #60 tabs amoxicillin 500 mg capsule 500 mg PO TID 7 days #21 caps 08/09/24 08/13/24 Rx New Prescriptions to Start Prescriptions: Allergies Allergy/AdvReac Type Severity Reaction Status Date / Time oseltamivir (From Tamiflu) AdvReac Mild Rash Verified 08/13/24 05:28 Exam Data for Last 24 hours Vital signs and Labs for Last 24 Hours: Temp Pulse Resp BP Pulse Ox O2 Del Method 98.5 F 80 20 110/64 97 Room Air 08/13/24 05:27 08/13/24 05:27 08/13/24 05:27 08/13/24 05:27 08/13/24 05:27 08/13/24 05:27 Laboratory Results - last 24 hr 08/13/24 05:20: WBC 13.5 H, RBC 4.02 L, Hgb 10.7 L, Hct 32.7 L, MCV 81.3, MCH 26.6 L, MCHC 32.7, RDW 13.5, Plt Count 268, MPV 11.2 H, Neut % (Auto) 67.9, Lymph % (Auto) 18.1, [place] % (Auto) 6.6, Eos % (Auto) 1.8, Baso % (Auto) 0.8, Neut # (Auto) 9.1 H, Lymph # (Auto) 2.4, [place] # (Auto) 0.9, Eos # (Auto) 0.2, Baso # (Auto) 0.1, Sodium 132 L, Potassium 3.9, Chloride 109 H, Carbon Dioxide 22, Anion Gap 4.9 L, BUN 6 L, Creatinine 0.50 L, Estimated Creat Clear 287, Estimated GFR 150, Est GFR ( Amer) 182, Glucose 90, Calcium 8.7, Total Bilirubin 0.5, AST 32, ALT 24, Alkaline Phosphatase 164 H, Total Protein 6.5, Albumin 3.3 L, Globulin 3.2, Albumin/Globulin Ratio 1.0 L I & O for Last 24 hours: Intake & Output 08/10/24 08/11/24 08/12/24 08/13/24 23:59 23:59 23:59 23:59 Weight 233 lb Narrative: General: patient is alert oriented in no acute distress and responds appropriately to questions. HEENT: NCAT, EOMI, moist mucous membranes, neck supple with full ROM Cardiovascular: RRR +S1/S2, no murmurs or rubs Pulmonary: Clear to auscultation bilaterally, nonlabored breathing, symmetric chest rise Abdominal: Gravid abdomen appropriate for gestation. No guarding, rebound, or tenderness noted. Extremities: trace edema, no tenderness or cyanosis noted Skin: Normal turgor, intact, warm. Negative for erythema, pallor, petechia, or lesions Neurologic: Negative for sensory or motor deficit Psychiatric: Normal affect, normal thought process, good judgment and insight, no depression or anxious mood appreciated. *Routine HEENT Exam Head: Present normocephalic and atraumatic Eye: Present EOMI, PERRL and normal accommodation; Absent conjunctival icterus, scleral injection, nystagmus or exophthalmos ENT: Present mucous membranes moist *Routine Respiratory Exam Respiratory: Present CTA bilaterally, normal respiratory effort, able to speak in complete sentences and symmetric chest movement; Absent accessory muscle use, decreased breath sounds, rales, respiratory distress, wheezes, distant breath sounds or diminished air movement *Routine Cardiovascular Exam Cardiovascular: Present RRR, Normal S1 and Normal S2; Absent murmur or gallop *Routine Abdominal Exam Abdominal: Present soft and normoactive bowel sounds; Absent tenderness, distended, rebound or guarding *Routine Rectal Exam Rectal:: deferred *Routine Genitalia Exam Genitalia:: normal female Assessment and Plan *Assessment and plan (1) History of delivery: Problem Comment: Desires repeat, declines tubal Status: Acute Category: Surgical Code(s): Z98.891 - History of uterine scar from previous surgery (2) Obesity: Status: Acute Category: Medical Code(s): E66.9 - Obesity, unspecified (3) Depression: Status: Chronic Category: Medical Code(s): F32.A - Depression, unspecified (4) Hypertension: Status: Chronic Category: Medical Code(s): I10 - Essential (primary) hypertension (5) Anemia: Status: Acute Category: Medical Code(s): D64.9 - Anemia, unspecified Plan - Monitor vitals - Admit to L&D for scheduled delivery - External FHR and TOCO monitor - GBS neg/ Blood type: AB- - Hemoglobin: 10.7, Plt: 268 - Plan for spinal anesthesia - Anticipate delivery of female : Becca #Anemia, normocytic -Hemoglobin 7.7. Discussed risk of blood transfusion and iron transfusion postoperatively -Present on admission -Continue to follow closely #Chronic hypertension -PIH labs within normal limits on admission -Blood pressure well-controlled -Continue to follow closely #Obesity -BMI at delivery is 34.4. Complicates all aspects of care Reviewed the risks benefits and alternatives to Repeat delivery. Patient continued to request delivery and not a trial of labor would not be an option after 2 previous deliveries. Discussed the risk of bleeding, infection injury to the surrounding structures. Patient consented to blood transfusion to medically necessary. Reviewed the rare risk of hysterectomy if bleeding is unable to be controlled. Discussed risk of infection, the patient has no allergies and will receive 2 g of Ancef preoperatively. Reviewed the risk of injury to surrounding structures including the bowel, bladder, reproductive organs, and neurovascular bundles. Patient voiced understanding. Discussed the increased risk with prior surgery and scarring. Patient and significant other voiced understanding desire to proceed
[2024-08-13] MEDS: CEFAZOLIN SODIUM 2 GM in 0.9 % SODIUM CHLORIDE 100 ML IV (07:50)
[2024-08-13 08:26] LABS: Microscopic, Urine URINE MICROSCOPIC (MICROSCOPIC)
[2024-08-13 08:34] LABS: Appearance,Urine CLEAR (Clear); Blood, Urine Negative (Negative); Color,Urine ORANGE (Yellow); Glucose,Urine (UA) Negative (Negative); Ketones,Urine 1+ (Negative); Leukocyte Esterase,Urine Negative (Negative); Nitrate,Urine Negative (Negative); Protein,Urine TRACE (Negative); Specific Gravity, Urine >= 1.030 (1.005-1.030)
[2024-08-13 08:38] LABS: Activated Partial Thrombo Time 27.1 seconds (22.8-30.6); Fibrinogen 434 mg/dL (229.9-363.5); INR 0.86 (0.9-1.1); Prothrombin Time 9.8 seconds (10.1-12.5)
[2024-08-13 08:40] LABS: Amphetamine/Metha Screen,Urine Negative ng/ml (<1000); Benzodiazepines Screen,Urine Negative ng/ml (<200)
[2024-08-13 08:41] LABS: Bacteria,Urine Trace /lpf; Barbiturates Screen,Urine Negative ng/ml (<200); Bilirubin,Urine 1+ (Negative); Mucus,Urine Trace /lpf; Squamous Epithelial Cell,Urine Occasional #/hpf (0-5); WBC,Urine Occasional #/hpf (0-3)
[2024-08-13 08:42] LABS: Cannabinoid Screen,Urine Negative ng/ml (<50); Cocaine Screen,Urine Negative ng/ml (<300)
[2024-08-13 08:43] LABS: Methadone Screen,Urine Negative ng/ml (<300); Opiate Screen,Urine Negative ng/ml (<300)
[2024-08-13 08:44] LABS: Phencyclidine Screen,Urine Negative ng/ml (<25)
--- NOTE | 2024-08-13 08:45 | P.PNANES_ITS ---
[facility] Anesthesia Record Part I Anesthesia Record I Intake, IV Amount: 1,000 Hydration: Adequate Estimated blood loss (mL): 500 Urine output (mL): 100 Blood Pressure: 132/78 SaO2: 99 Pulse Rate: 85 Airway Patency: Patent Respiratory Rate: 14 Temperature: 98 F Patient is:: Awake Stable to PACU at:: 08:40
--- NOTE | 2024-08-13 08:48 | EXP.OP.NOTE ---
Date of procedure: 08/13/24 Pre-op Diagnosis:: 1. 37 weeks 6days gestation, R[place] 2. Chronic hypertension, on medication 3. Obesity 4. Previous delivery, desires repeat 5. Rh- 6. Decreased movement Post-op Diagnosis:: 1. 37 weeks 6days gestation, R[place] 2. Chronic hypertension, on medication 3. Obesity 4. Previous delivery, desires repeat 5. Rh- 6. Decreased movement Procedure performed:: Repeat delivery Surgeon:: Rose Marie Hou DO Network Designer(s):: Jan Diamond MD LOOM WINDER TENDER:: Fe Sosa Anesthesia: spinal Estimated blood loss (mL): 550 Clinical Note:: Lelia Sneed is a 23-year-old G2, P1 who presented for scheduled delivery this morning. In the last 2 weeks she has been monitored very closely secondary to a headache, elevated blood pressure, and decreased movement. She has had previous delivery and desires a repeat. Declines trial of labor. Declines bilateral salpingectomy Operative findings:: 1. Live viable female infant: Likely. Weight: pending at this time. Apgars 8 and 9 at 1 and 5 minutes respectively 2. Normal-appearing fallopian tubes and ovaries bilaterally Operative note:: Medications: 2 g of Ancef Summary: Procedure explained in its entirety. The patient was counseled on the risks and benefits of section including bleeding, vascular injury, infection, and injury to the surrounding structures. Hemorrhage requiring life saving blood transfusion resulting in blood born viral infection or allergic reaction was explained and the patient consented to blood transfusion. Possible need for further operative measures prolonging recovery time and hospitalization reviewed to include hysterectomy. Procedure explained in its entirety and patient had no further questions. Consented to procedure. The patient was taken back to the operating room where adequate spinal anesthesia was obtained. Pneumatic compression stockings applied to lower extremities. Ancef 2g was given for infection prophylaxis. She was placed in the dorsal supine position Urinary catheter was placed and found to be draining clear urine. The patient was prepped and draped in sterile fashion. Anesthesia was tested and and found to be adequate. A Pfannenstiel skin incision was made with the scalpel. Subcutaneous bleeding vessels were cauterized with the bovie. The incision was taken down to the fascia with the bovie. The fascia was knicked in the midline and sharply extended laterally. The superior aspect of the fascia was grasped with Asa clamps and the rectus muscle was taken down with the Bovie. The rectus muscle was sharply dissected from the midline with Mayos. This process was repeated inferiorly. The rectus muscles were in the midline, peritoneum was identified and entered bluntly. Shawn O retractor was placed and the bladder was noted to be out of the operative field. The lower uterine segment was easily identified, sharply incised, and entered bluntly with the surgeon's index finger. Incision was then extended in a superior and inferior fashion by blunt separation. Membranes were ruptured revealing clear fluid. The fetus was in cephalic presentation. The head was carefully elevated out of the pelvis. Fundal pressure was applied when head was brought into incision. The infants head was delivered without difficulty. The shoulder and body followed without complication. Delivery occurred at 0750. The mouth and nose were suctioned with a bulb. The umbilical cord was clamped and cut. Infant was taken to warmer for evaluation by the office services associate. Cord blood was collected. The placenta was delivered via fundal massage and found to be normal and intact. Placenta will be sent to pathology secondary to chronic hypertension. IV Pitocin was initiated. Inside of the uterus was gently cleared of blood and clots with lap sponge. The hysterotomy was closed with #1 Vicryl in a running locked fashion x 2 with a second retaining stitch. The lower uterine segment was visualized and noted to be hemostatic. The ovaries and tubes were found to be normal. The posterior aspect of the uterus was cleared of blood clot with a damp lap sponge. Shawn O retractor was removed. The gutters were inspected bilaterally and cleared of blood and clots with lap sponges. There was a significant amount of blood in the abdomen so the the uterine incision was reinspected and hemostasis noted. There were no areas of bleeding identified but a piece of Surgicel was placed over the incision for added prophylaxis. The peritoneum was reapproximated using a 2-0 PDS in a nonlocked running fashion. The fascia was closed in a running nonlocked fashion using 0 Vicryl x2 meeting right of midline. Fascia was noted as not having gaps or defects. The subcutaneous fat was closed with 2-0 Monocryl interrupted sutures x3. Skin was closed with the INSORB suture in a subcuticular fashion. Patient tolerated the procedure well and all counts were correct x3, per nursing. Patient will receive tap blocks and then be transported to the OB PACU for recovery and infant bonding. Condition: stable Disposition: floor Specimens:: 1. Live viable female infant 2. Placenta 3. Cord blood Complications:: None
--- NOTE | 2024-08-13 08:51 | [facility].PHAINT1 ---
Pharmacy Intervention Comments: MEDICATION RECONCILIATION COMPLETED ON PATIENT USING EXTERNAL FILL HISTORY FROM PHARMACY. -CHERYL SCHWARZ, BRANNOND
[2024-08-13] MEDS: OXYTOCIN/RINGERS LACTATE 30 UNITS/500 ML BAG 40 UNITS IV (09:36)
[2024-08-13] MEDS: LACTATED RINGERS 1000ML 1,000 ML 125 ML IV (09:36)
[2024-08-13] MEDS: KETOROLAC 30MG/ML VIAL 30 MG IV ×3 (09:41→20:03)
[2024-08-13] MEDS: ACETAMINOPHEN 500MG TAB 1000 MG PO ×3 (09:42→20:02)
[2024-08-13] MEDS: AMOXICILLIN 500MG CAPSULE 500 MG PO ×3 (09:42→20:03)
[2024-08-13] MEDS: LABETALOL 100MG TABLET 200 MG PO ×2 (10:07→20:02)
[2024-08-13] MEDS: SODIUM CHLORIDE 0.9% 25ML BAG 25 ML IV (10:07)
[2024-08-13] MEDS: PROMETHAZINE HCL 25MG/ML 1ML VIAL 12.5 MG IV (10:07)
[2024-08-13] MEDS: HYDROMORPHONE 2MG/ML SYRINGE 1 MG IV (10:11)
[2024-08-13 12:42] LABS: Microscopic,Cath URINE MICROSCOPIC (MICROSCOPIC)
[2024-08-13 12:45] LABS: Appearance,Urine/Cath CLEAR (Clear); Bilirubin,Cath Negative (Negative); Blood, Urine/Cath Negative (Negative); Color,Urine/Cath YELLOW (Yellow); Glucose,Urine/Cath (UA) Negative (Negative); Ketones,Urine/Cath 1+ (Negative); Leukocyte Esterase,Cath Negative (Negative); Nitrate,Cath Negative (Negative); Protein,Urine/Cath Negative (Negative); Urobilinogen,Cath 0.2 EU/dl (0.2)
[2024-08-13 13:10] LABS: Bacteria,Urine/Cath TRACE /lpf; Squamous Epithelial Ur./Cath Occasional #/hpf (0-5)
--- NOTE | 2024-08-13 14:38 | P.PNANES_ITS ---
[facility] Anesthesia Record Part II Anesthesia Record Part II Discharge Time: 09:10 Destination: Obstetric PACU nurse assessment reviewed?: Yes Patient Condition:: Good Anesthesia Complications:: None Swallowing reflex intact?: Yes Airway Patency: Patent Cyanosis?: No Blood Pressure: 129/79 SaO2: 100 Respiratory Rate: 16 Pulse Rate: 78 Temperature: 98.1 F Mental Status: Alert & Oriented Pain level:: 0 Nausea and/or vomitting:: None Intake, IV Amount: 0 Hydration: Adequate
[2024-08-13] MEDS: PRENATAL MULTIVITAMIN W/IRON 1 EACH PO (17:27)
[2024-08-13] MEDS: SIMETHICONE 80MG CHEWABLE TABLET 160 MG PO (20:02)
[2024-08-13] MEDS: SENNA 8.6MG TABLET 8.6 MG PO (20:03)
[2024-08-14] MEDS: OXYCODONE 5MG IMMEDIATE RELEASE TABLET 5 MG PO (01:27)
[2024-08-14] MEDS: ACETAMINOPHEN 500MG TAB 1000 MG PO ×4 (01:32→20:36)
[2024-08-14] MEDS: KETOROLAC 30MG/ML VIAL 30 MG IV (01:32)
[2024-08-14] MEDS: BENZONATATE 100MG CAPSULE 100 MG PO ×3 (02:05→20:36)
[2024-08-14] MEDS: guaiFENesin 200MG/10ML SYRUP UDC 200 MG PO (02:05)
[2024-08-14 08:28] LABS: Hemoglobin 9.9 g/dL (12.2-16.2); Red Blood Count 3.78 M/mm3 (4.20-5.40); White Blood Count 15.6 K/mm3 (4.8-10.8)
[2024-08-14 08:29] LABS: Basophils # 0.1 K/mm3 (0-0.2); Basophils % 0.6 % (0.1-2.0); Eosinophils # 0.2 K/mm3 (0.0-0.4); Eosinophils % 1.5 % (0.1-12.0); Hematocrit 31.6 % (37.0-47.0); Lymphocytes # 2.2 K/mm3 (0.7-4.5); Mean Corpuscular HGB Conc 31.3 g/dL (31.8-35.4); Mean Corpuscular Hemoglobin 26.2 pg (27.0-31.2); Mean Corpuscular Volume 83.6 fl (81-99); Mean Platelet Volume 11.3 fl (7.4-10.4); Monocytes # 1.3 K/mm3 (0.1-1.0); Monocytes % 8.2 % (1.7-9.3); Neutrophils # 11.3 K/mm3 (1.8-7.8); Neutrophils % 72.3 % (37.0-80.0); Platelet Count 250 K/mm3 (142-424)
[2024-08-14 08:31] LABS: MANUAL DIFFERENTIAL MANUAL DIFFERENTIAL (MANUAL DIFF)
[2024-08-14] MEDS: AMOXICILLIN 500MG CAPSULE 500 MG PO ×3 (08:46→20:36)
[2024-08-14] MEDS: LABETALOL 100MG TABLET 200 MG PO ×2 (08:46→20:36)
[2024-08-14] MEDS: IBUPROFEN 400 MG TABLET 800 MG PO ×2 (08:46→16:35)
[2024-08-14 08:48] VITALS: BP 116/64; PULSE 76; RESP 17; TEMP 36.7; O2SAT 98
[2024-08-14 10:05] LABS: Albumin Level 2.7 g/dl (3.5-5.0)
[2024-08-14 10:07] LABS: Alanine Aminotransferase 22 U/L (12-78); Alkaline Phosphatase 120 U/L (38-126); Aspartate Amino Transferase 30 U/L (14-36); Bilirubin,Total 0.4 mg/dl (0.2-1.3); Blood Urea Nitrogen 10 mg/dl (7-17); Calcium 8.7 mg/dl (8.4-10.2); Chloride 110 mmol/L (98-107); Creatinine Clearance Estimated 239 mL/min (50-200); Estimated Glomerular Filt Rate 122 ml/min (>60); GFR (African American) 147 ML/MIN (>60); Globulin 2.8 g/dL (1.3-3.2); Glucose 104 mg/dl (74-100); Potassium 3.8 mmoL/L (3.5-5.1); Sodium 137 mmol/L (136-145); Total Protein,Serum 5.5 g/dl (6.3-8.2)
[2024-08-14] MEDS: RHO(D) IMMUNE GLOBULIN 1,500 UNIT (300MCG) SYRINGE 300 MCG IM (10:07)
[2024-08-14 10:08] LABS: Anion Gap 5.8 mEq/L (5-15); Carbon Dioxide 25 mmol/L (22.0-30.0)
--- NOTE | 2024-08-14 10:17 | P.PN_ITS ---
Subjective *Date: 08/14/24 *Time: 10:17 Interval history: She is doing very well. She is 1 day post repeat for term . She is doing well. She is bottlefeeding. Her lochia is normal. She denies any excess pain. Medical Exam Vital signs and Labs for Last 24 Hours: Vital Signs Temp Pulse Resp BP Pulse Ox O2 Del Method 08/14/24 08:48 98.0 F 76 17 116/64 98 Room Air 08/13/24 19:50 98.4 F 88 18 122/67 98 Room Air 08/13/24 14:39 16 Intake and Output 08/13/24 08/14/24 08/14/24 19:59 03:59 11:59 Intake Total 0 / 0 Balance 0 / 0 Intake: Intake, Total IV Amount 0 / 0 Laboratory Results - last 24 hr 08/13/24 05:20: Blood Type AB Negative, Antibody Screen Positive, Antibody Identification Anti-D, Crossmatch (AHG) See Detail 08/13/24 07:26: Urine Color Yellow, Urine Appearance Clear, Urine pH 7.0, Ur Specific [place] 1.010, Urine Protein Negative, Urine Glucose (UA) Negative, Urine Ketones 1+, Urine Blood Negative, Urine Nitrate Negative, Urine Bilirubin Negative, Urine Urobilinogen 0.2, Ur Leukocyte Esterase Negative, Urine RBC None, Urine WBC None, Ur Squamous Epith Cells Occasional, Urine Bacteria Trace 08/14/24 07:40: WBC 15.6 H, RBC 3.78 L, Hgb 9.9 L, Hct 31.6 L, MCV 83.6, MCH 26.2 L, MCHC 31.3 L, RDW 14.0, Plt Count 250, MPV 11.3 H, Neut % (Auto) 72.3, Lymph % (Auto) 14.0, Toombs % (Auto) 8.2, Eos % (Auto) 1.5, Baso % (Auto) 0.6, Neut # (Auto) 11.3 H, Lymph # (Auto) 2.2, [place]ombs # (Auto) 1.3 H, Eos # (Auto) 0.2, Baso # (Auto) 0.1, Albumin 2.7 L D, Screen Negative, Baby's Rh Status Positive I & O for Labs for Last 24 Hours: Intake & Output 08/11/24 08/12/24 08/13/24 08/14/24 11:59 11:59 11:59 11:59 Intake Total 1000 / 1000 0 / 0 Output Total 1375 / 1375 Balance -375 / -375 0 / 0 Weight 233 lb Head: Present normocephalic Neck: Present normal inspection Respiratory: Present normal respiratory effort; Absent accessory muscle use GI: Present soft; Absent distention, tenderness, guarding, rebound or rigidity Rectal (female): Present deferred (female): Present deferred Assessment and Plan *Assessment and plan (1) History of delivery: Problem Comment: Desires repeat, declines tubal Status: Acute Category: Surgical Code(s): Z98.891 - History of uterine scar from previous surgery (2) Obesity: Status: Acute Qualifiers: Obesity classification: adult class 1 (BMI 30 - 34.9) Serious obesity comorbidity presence: without serious comorbidity Obesity type: due to excess calories Body mass index: BMI 34.0-34.9 Qualified Code(s): E66.811 - Obesity, class 1; E66.09 - Other obesity due to excess calories; Z68.34 - Body mass index [BMI] 34.0-34.9, adult Category: Medical Code(s): E66.9 - Obesity, unspecified (3) Anemia: Status: Acute Qualifiers: Anemia type: iron deficiency Iron deficiency anemia type: other iron deficiency Qualified Code(s): D50.8 - Other iron deficiency anemias Category: Medical Code(s): D64.9 - Anemia, unspecified (4) delivery delivered: Status: Acute Category: Medical Code(s): O82 - Encounter for delivery without indication Plan She is doing well 1 day post section. Her pain is well-controlled. She is bottlefeeding. We will plan to send her home tomorrow.
[2024-08-14 13:53] LABS: Lymphocytes % 21 % (10-50); Monocytes % 11 % (2-9); Neutrophils % 68 % (42-76); Total Cells Counted 100
[2024-08-14 13:54] LABS: Anisocytosis 2+; Hypochromasia 2+; Macrocytosis 2+; Microcytosis 1+; Ovalocytes 1+; Platelet Estimate Normal; Poikilocytosis 1+
[2024-08-14 13:55] LABS: Burr Cells 1+; Target Cells 1+
[2024-08-14 16:34] VITALS: BP 119/71; PULSE 86; RESP 17; TEMP 36.5; O2SAT 97
[2024-08-14] MEDS: PRENATAL MULTIVITAMIN W/IRON 1 EACH PO (16:35)
[2024-08-14] MEDS: SENNA 8.6MG TABLET 8.6 MG PO (20:36)
[2024-08-15 02:24] LABS: RPR W/RFX Titers Nonreactive (Nonreactive)
[2024-08-15] MEDS: IBUPROFEN 400 MG TABLET 800 MG PO (04:31)
[2024-08-15] MEDS: ACETAMINOPHEN 500MG TAB 1000 MG PO (04:31)
[2024-08-15] MEDS: LABETALOL 100MG TABLET 200 MG PO (08:21)
[2024-08-15] MEDS: BENZONATATE 100MG CAPSULE 100 MG PO (08:21)
[2024-08-15] MEDS: AMOXICILLIN 500MG CAPSULE 500 MG PO (08:22)
--- NOTE | 2024-08-15 09:10 | P.DS_ITS ---
General Admission date:: 08/13/24 Discharge date: 08/15/24 HPI HPI HPI: Lelia Santacruz is a 23-year-old at 37 weeks and 6 days gestation who presented to labor and delivery for a scheduled delivery secondary to chronic hypertension. Her has been complicated by previous with. Delivery, obesity with a BMI of 35 at the start of , and chronic hypertension on labetalol 200 mg twice daily. Recently for the last week she has been complaining of decreased movement and since 35 weeks she has been noting increases in her blood pressure at home. She is also had persistent headaches. On presentation patient reported persistent decreased movement and denies any leakage of fluid or vaginal bleeding. AB negative, antibody negative, rubella immune, hepatitis B negative, hepatitis C negative, RPR negative, HIV negative 1 hour GTT: 138 GBS negative Hospital Course Hospital Course Hospital Course: On August 12, 2024 she underwent a repeat lower segment transverse section. She delivered a liveborn female child weighing 7 pounds 14 ounces. She was 19 inches long and had Apgars of 8 at 1 minute and 9 at 5 minutes. She has done well postoperatively and has remained afebrile throughout hospitalization. She is eating and drinking and ambulating. She is bottlefeeding. Her incision is clean and dry. She has AB- blood and has received RhoGAM. She is rubella immune and group B streptococcus negative. Her licensed certified orthotist is Dr. Hedrick. She is discharged home to follow-up with Dr. Hou in approximately 2 weeks time. She will continue with her vitamins and iron. She is given a prescription for Percocet 5/325 number 8 tablets. She was given the usual instructions with respect to limiting her activity, driving and sexual activity. Her condition on discharge is stable and improved Exam Data for Last 24 hours Vital signs and Labs for Last 24 Hours: Temp Pulse Resp BP Pulse Ox O2 Del Method 97.7 F 86 17 119/71 97 Room Air 08/14/24 16:34 08/14/24 16:34 08/14/24 16:34 08/14/24 16:34 08/14/24 16:34 08/14/24 16:34 Laboratory Results - last 24 hr 08/14/24 07:40: Total Counted 100, Neutrophils % (Manual) 68, Lymphocytes % (Manual) 21, Monocytes % (Manual) 11 H, Platelet Estimate Normal, Hypochromasia 2+, Poikilocytosis 1+, Anisocytosis 2+, Microcytosis 1+, Macrocytosis 2+, Target Cells 1+, Ovalocytes 1+, Lowber Cells 1+, Sodium 137, Potassium 3.8, Chloride 110 H, Carbon Dioxide 25, Anion Gap 5.8, BUN 10 D, Creatinine 0.60, Estimated Creat Clear 239, Estimated GFR 122, Est GFR ( Amer) 147, Glucose 104 H, Calcium 8.7, Total Bilirubin 0.4, AST 30, ALT 22, Alkaline Phosphatase 120, Total Protein 5.5 L, Albumin 2.7 L D, Globulin 2.8, Albumin/Globulin Ratio 1.0 L, Screen Negative, Baby's Rh Status Positive I & O for Last 24 hours: Intake & Output 08/12/24 08/13/24 08/14/24 08/15/24 11:59 11:59 11:59 11:59 Intake Total 1000 / 1000 0 / 0 Output Total 1375 / 1375 Balance -375 / -375 0 / 0 Weight 233 lb Constitutional Constitutional: no acute distress *Routine HEENT Exam Head: Present normocephalic *Routine Respiratory Exam Respiratory: Present normal respiratory effort; Absent accessory muscle use *Routine Abdominal Exam Abdominal: Present soft; Absent tenderness, distended, rebound or guarding Results Data Completed and Pending Labs on day of discharge: Labs from last 24 hours 08/14/24 07:40 Total Counted 100 Neutrophils % (Manual) 68 Lymphocytes % (Manual) 21 Monocytes % (Manual) 11 H Platelet Estimate Normal Hypochromasia 2+ Poikilocytosis 1+ Anisocytosis 2+ Microcytosis 1+ Macrocytosis 2+ Target Cells 1+ Ovalocytes 1+ Darrell Cells 1+ Sodium 137 Potassium 3.8 Chloride 110 H Carbon Dioxide 25 Anion Gap 5.8 BUN 10 D Creatinine 0.60 Estimated Creat Clear 239 Estimated GFR 122 Est GFR ( Amer) 147 Glucose 104 H Calcium 8.7 Total Bilirubin 0.4 AST 30 ALT 22 Alkaline Phosphatase 120 Total Protein 5.5 L Albumin 2.7 L D Globulin 2.8 Albumin/Globulin Ratio 1.0 L Screen Negative Baby's Rh Status Positive DS: Diagnosis Discharge Diagnosis (1) History of delivery: Status: Acute Code(s): Z98.891 - History of uterine scar from previous surgery Problem details: Desires repeat, declines tubal (2) Obesity: Status: Acute Code(s): E66.9 - Obesity, unspecified Qualifiers: Obesity type: due to excess calories Obesity classification: adult class 1 (BMI 30 - 34.9) Serious obesity comorbidity presence: without serious comorbidity Body mass index: BMI 34.0-34.9 Qualified Code(s): E66.811 - Obesity, class 1; E66.09 - Other obesity due to excess calories; Z68.34 - Body mass index [BMI] 34.0-34.9, adult (3) Anemia: Status: Acute Code(s): D64.9 - Anemia, unspecified Qualifiers: Anemia type: iron deficiency Iron deficiency anemia type: other iron deficiency Qualified Code(s): D50.8 - Other iron deficiency anemias (4) delivery delivered: Status: Acute Code(s): O82 - Encounter for delivery without indication Meds Home Medications and Allergies Home Medications ?Medication ?Instructions ?Recorded ?Confirmed ?Type vits no.126-ferrous fum 1 tab PO DAILY 02/20/24 08/13/24 History 28 mg iron-folic acid 800 mcg tablet (Classic ) amoxicillin 500 mg capsule 500 mg PO TID 7 days #21 caps 08/09/24 08/13/24 Rx labetalol 200 mg tablet 200 mg PO BID 08/13/24 08/13/24 History oxycodone-acetaminophen 5 mg-325 1 tab PO Q6H PRN pain #8 tabs 08/15/24 Rx mg tablet New Prescriptions to Start Prescriptions: oxycodone-acetaminophen Jan Diamond Allergies Allergy/AdvReac Type Severity Reaction Status Date / Time oseltamivir (From Tamiflu) AdvReac Mild Rash Verified 08/13/24 05:28 Discharge Plan Disposition Patient Disposition: Home, Self-Care Discharge Order Discharge Orders: Discharge Order (Routine); Ordered 08/15/24 Ordered By: Jan Diamond Follow up Plan Follow up with: Rose Marie Hou DO [Staff Physician] - Enter time for follow up (Call the office on Friday to make an appointment for 2 weeks from delivery.) Prescriptions/Medication Reconciliation: New oxycodone-acetaminophen 5-325 mg tablet 1 tab PO Q6H PRN (Reason: pain) Qty: 8 0RF Continued Classic 28 mg iron- 800 mcg tablet 1 tab PO DAILY labetalol 200 mg tablet 200 mg PO BID amoxicillin 500 mg capsule 500 mg PO TID 7 Days Qty: 21 0RF Discontinued aspirin [Adult Aspirin Regimen] 81 mg tablet,delayed release (DR/EC) 81 mg PO DAILY Problem Reconciliation Problems Reviewed?: Yes Patient Discharge Instructions ACTIVITY: No heavy lifting DIET: continue same diet Patient Instructions: Depression, Hemorrhage, DI for , DI for Pre-eclampsia, [facility] Post Discharge Instructions Print Language: Yi Providers Primary Care Provider: Darrian Alvarado Admit Provider: Rose Marie Hou Attending Provider: Rose Marie Hou
== END 2024-08-15 10:20 | disposition home or self-care (01) | DRG 788 ==
PROVIDERS: Admitting Provider Obstetrics & Gynecology; PCP Internal Medicine; Visit Provider Obstetrics & Gynecology
PROC: 10D00Z1 Extraction of Products of Conception, Low, Open Approach (ICD-10-PCS; CPT 59514; principal; 2024-08-13 07:30)
DX: O10.92 Unspecified pre-existing hypertension complicating childbirth (principal); O34.211 Maternal care for low transverse scar from previous cesarean delivery; N85.8 Other specified noninflammatory disorders of uterus; Z37.0 Single live birth; O99.214 Obesity complicating childbirth; E66.9 Obesity, unspecified; O99.344 Other mental disorders complicating childbirth; F32.A Depression, unspecified; O99.02 Anemia complicating childbirth; D64.9 Anemia, unspecified
CPT/HCPCS: 36415; 59025; 80053; 80307; 81001; 85007; 85025; 85384; 85461; 85610; 85730; 86592; 86850; 86870; C9290; J1171; J1885; J2405; J2550; J2790; J3010; J7120

== ENCOUNTER 2024-08-16 20:54 | Emergency (ER) | payer BC, SELFPAY ==
[2024-08-16 20:55] VITALS: BP 149/97; PULSE 103; RESP 16; TEMP 36.6; O2SAT 98; BMI 34.4
--- NOTE | 2024-08-16 20:57 | ED_ITS ---
<Statement entered by Ling Mejia DO - 08/17/24 00:13> I was consulted by the MEDNIA, and we discussed the complexity of the problems being addressed. I approved the treatment and management plan for this patient's care in the emergency department, thus performing a substantive portion of the medical decision making. Ling Mejia DO Discharge Plan Disposition Patient Disposition: Home, Self-Care Condition: Fair Prescriptions Prescriptions: No Action Classic 28 mg iron- 800 mcg tablet 1 tab PO DAILY labetalol 200 mg tablet 200 mg PO BID oxycodone-acetaminophen 5-325 mg tablet 1 tab PO Q6H PRN (Reason: pain) Qty: 8 0RF amoxicillin 500 mg capsule 500 mg PO TID 7 Days Qty: 21 0RF Referrals Follow up/Referrals: Darrian Alvarado MD [Primary Care Provider] - See instructions Activity Restrictions/Add. Instructions Additional Instructions/Restrictions: Go directly to labor and delivery from the ER. Clinical Impressions Clinical Impression: Spinal headache complicating labor and delivery, condition Print Language Print Language: Divehi Discharge ED Provider: Ling Mejia General Adult HPI General Chief complaint: Headache Stated complaint: c section head pain Time Seen by Provider: 08/16/24 20:57 History of Present Illness HPI narrative: Patient presents for evaluation of a postoperative headache. Patient had a epidural for a section on Friday. She has had a headache starting postoperatively. She has very classic symptoms with racking headache along with nausea and vomiting upon arising from a flat supine position. The headache goes away immediately when supine. She denies any numbness tingling seizures chest pain shortness of breath hemoptysis hematochezia melena. Related Data Home Medications ?Medication ?Instructions ?Recorded ?Confirmed vits no.126-ferrous fum 1 tab PO DAILY 02/20/24 08/13/24 28 mg iron-folic acid 800 mcg tablet (Classic ) labetalol 200 mg tablet 200 mg PO BID 08/13/24 08/13/24 Previous Rx's ?Medication ?Instructions ?Recorded amoxicillin 500 mg capsule 500 mg PO TID 7 days #21 caps 08/09/24 oxycodone-acetaminophen 5 mg-325 1 tab PO Q6H PRN pain #8 tabs 08/15/24 mg tablet Allergies Allergy/AdvReac Type Severity Reaction Status Date / Time oseltamivir (From Tamiflu) AdvReac Mild Rash Verified 08/13/24 05:28 [facility] Disclaimer: The information contained in this section may have been updated after the patient was seen, as this information can be updated by other users. Medical History Metabolic syndrome Obesity Hypertension Depression Surgical History History of tonsillectomy History of delivery Patellar tendon rupture Family History Other No significant family history Social History Smoking Status: Never smoker alcohol intake: never substance use type: denies use current occupational status: other Travel in the last 8 weeks: None household members: significant other housing: house Other Medical History Have you received the Flu Vaccine for this season: No Have you received the Pneumonia Vaccine: No ROS Obtained: Yes Systems reviewed as appropriate & no additional complaints except as documented Physical Exam General General appearance: alert and in no apparent distress Respiratory Respiratory exam: Present normal lung sounds bilaterally Cardiovascular Cardiovascular exam: Present regular rate Neurological Exam Neurological exam: Present alert, oriented X3, CN II-XII intact and normal gait; Absent motor sensory deficit Medical Decision Making Medical Records Medical records reviewed: Yes I reviewed the patient's medical records. Screening: Per USPSTF and CDC recommendations, given the prevalence of disease in our region, it is our hospital?s policy to screen for HIV and viral Hepatitis for all patients aged 18 and over and those with ongoing risk factors. Sameer Inquiry Pt receiving controlled substance: No Vital Signs: 08/16/24 20:55 08/16/24 22:06 Temperature 98 F 97.9 F Temperature Source Oral Oral Pulse Rate 92 H Pulse Rate [Right Radial] 103 H Respiratory Rate 16 14 Blood Pressure 149/97 H Blood Pressure [Right Arm] 149/97 H Blood Pressure Mean [Right Arm] 114 Blood Pressure Source Automatic Cuff Blood Pressure Source [Right Arm] Automatic Cuff Blood Pressure Position Supine Blood Pressure Position [Right Arm] Supine 02 Sat by Pulse Oximetry 98 Oxygen Delivery Method Room Air Room Air Lab Data Lab results reviewed: Yes I reviewed the patient's lab results. Lab Results 08/16/24 21:17: WBC 13.7 H, RBC 3.98 L, Hgb 10.8 L, Hct 33.4 L, MCV 83.9, MCH 27.1, MCHC 32.3, RDW 13.9, Plt Count 292, MPV 10.7 H, Neut % (Auto) 75.1, Lymph % (Auto) 13.3, Armstrong % (Auto) 6.3, Eos % (Auto) 2.3, Baso % (Auto) 0.5, Neut # (Auto) 10.3 H, Lymph # (Auto) 1.8, Armstrong # (Auto) 0.9, Eos # (Auto) 0.3, Baso # (Auto) 0.1, Sodium 135 L, Potassium 3.4 L, Chloride 108 H, Carbon Dioxide 26, A nion Gap 4.4 L, BUN 11, Creatinine 1.10 H D, Estimated Creat Clear 130, Estimated GFR 61, Est GFR ( Amer) 73 D, Glucose 100, Calcium 8.4, Total Bilirubin 0.4, AST 31, ALT 29 D, Alkaline Phosphatase 119, Total Protein 6.1 L, Albumin 3.1 L, Globulin 3.0, Albumin/Globulin Ratio 1.0 L 08/16/24 21:17 08/16/24 21:17 Orders (Tests/Meds): ED MEDICATIONS Discontinued Medications Generic Name Dose Route Start Last Admin Trade Name Freq PRN Reason Stop Dose Admin Sodium Chloride 1,000 mls @ 999 mls/hr 08/16/24 21:08 08/16/24 21:22 Sod Chlor 0.9% 1000ml Bag IV 08/16/24 22:08 999 mls/hr .Q1H1M ONE Administration ORDERS Category Date Time Status CBC w/Auto Diff [Complete Blood Count Auto Diff] Stat Lab 08/16/24 21:17 Completed CMP [Comprehensive Metabolic Panel] Stat Lab 08/16/24 21:17 Completed Medical Decision Narrative: In summary patient is a 23-year-old female who presents to the emergency department for evaluation of postoperative spinal headache. Patient is initially normotensive and tachycardic upon arrival, and afebrile but breathing 16 times a minute satting at 98% on room air. Physical exam shows when the patient is supine she is asymptomatic with her pupils equal round reactive to light accommodation no headache no focal neurologic deficits Glascow coma score is 15 patient is awake alert and oriented to person place and circumstance cranial nerves II through XII are intact grossly to exam. Patient immediately becomes symptomatic with headache nausea upon attempting to set up. Goes away immediately upon lying supine. Other diagnoses were considered including spinal infection however patient has a classic presentation of a spinal epidural headache and no red flags that this is anything other than as she presents. Initial workup will be conducted with hematologic labs. Initial interventions include crystalloid bolus and caffeine. Initial workup reviewed by me shows her hematologic labs are nonactionable.. Given this I had interactive discussion with Dr. Hou of [employer] about patient management and patient will be sent to labor and delivery for intervention by anesthesia. Of note I actually spoke to anesthesia on-call as well about patient management and they recommended steroid infusion and Fioricet which will be initiated in labor and delivery. Critical Care Critical Care Time Critical Care Time: No
[2024-08-16] MEDS: 0.9 % SODIUM CHLORIDE 1000ML 1,000 ML 999 ML IV (21:22)
[2024-08-16 21:26] LABS: Hematocrit 33.4 % (37.0-47.0); Hemoglobin 10.8 g/dL (12.2-16.2); Mean Corpuscular HGB Conc 32.3 g/dL (31.8-35.4); Mean Corpuscular Hemoglobin 27.1 pg (27.0-31.2); Mean Corpuscular Volume 83.9 fl (81-99); Mean Platelet Volume 10.7 fl (7.4-10.4); Platelet Count 292 K/mm3 (142-424); Red Blood Count 3.98 M/mm3 (4.20-5.40); Red Cell Distribution Width 13.9 % (11.5-17.5); White Blood Count 13.7 K/mm3 (4.8-10.8)
[2024-08-16 21:27] LABS: Basophils # 0.1 K/mm3 (0-0.2); Basophils % 0.5 % (0.1-2.0); Eosinophils # 0.3 K/mm3 (0.0-0.4); Eosinophils % 2.3 % (0.1-12.0); Lymphocytes # 1.8 K/mm3 (0.7-4.5); Lymphocytes % 13.3 % (10-50); Monocytes # 0.9 K/mm3 (0.1-1.0); Monocytes % 6.3 % (1.7-9.3); Neutrophils # 10.3 K/mm3 (1.8-7.8); Neutrophils % 75.1 % (37.0-80.0)
[2024-08-16 21:29] LABS: Albumin Level 3.1 g/dl (3.5-5.0); Chloride 108 mmol/L (98-107); Sodium 135 mmol/L (136-145)
[2024-08-16 21:30] LABS: Potassium 3.4 mmoL/L (3.5-5.1)
[2024-08-16 21:32] LABS: Alanine Aminotransferase 29 U/L (12-78); Alkaline Phosphatase 119 U/L (38-126); Anion Gap 4.4 mEq/L (5-15); Aspartate Amino Transferase 31 U/L (14-36); Bilirubin,Total 0.4 mg/dl (0.2-1.3); Blood Urea Nitrogen 11 mg/dl (7-17); Carbon Dioxide 26 mmol/L (22.0-30.0); Creatinine Clearance Estimated 130 mL/min (50-200); Estimated Glomerular Filt Rate 61 ml/min (>60); GFR (African American) 73 ML/MIN (>60)
[2024-08-16 21:33] LABS: Calcium 8.4 mg/dl (8.4-10.2); Glucose 100 mg/dl (74-100); Total Protein,Serum 6.1 g/dl (6.3-8.2)
[2024-08-16 22:06] VITALS: BP 149/97; PULSE 92; RESP 14; TEMP 36.6; O2SAT 96
--- NOTE | 2024-08-31 14:06 | P.PCN_ITS ---
[facility] Procedure Note Date: 08/16/24 Time: 23:40 Procedure Note:: Patient assessed. Consent obtained. Prepped, draped in sterile fashion. EBP performed by SENIOR COGNOS DEVELOPER and 20 cc blood drawn simultaneously by RN from left arm in sterile fashion. 20 cc sterile autologous blood injected into epidural space with patient verbalizing relief of headache upon completion. Bandaid applied. VSS.
== END 2024-08-16 22:10 | disposition home or self-care (01) ==
PROVIDERS: Physician Assistant; Emergency Provider Emergency Medicine; PCP Internal Medicine
DX: O74.5 Spinal and epidural anesthesia-induced headache during labor and delivery (principal); R51.9 Headache, unspecified; R11.2 Nausea with vomiting, unspecified
CPT/HCPCS: 80053; 85025; 96360; 99283; J7030

== ENCOUNTER 2024-08-16 22:11 | Outpatient (CLI) | payer BC, SELFPAY ==
--- NOTE | 2024-08-16 22:20 | PC.NURSE ---
Pt discharged from ED, IV to Right arm. Saline locked. Patient was directed to come to OB unit and consult would be made to Fe CRUMP. Patient arrived via stretcher acompanied by Alonzo ROPER from ER. Laying flat, alert and awake. Pt received IV fluids and reports her headache slightly improved but was still bad unless she is laying flat.
--- NOTE | 2024-08-16 22:34 | PC.NURSE ---
Fe CRUMP paged
--- NOTE | 2024-08-16 22:34 | PC.NURSE ---
2145 08/16/2024 Dr. Hou calling at this time to report patient will be coming to OB unit for Thuri to consult yousuf potential Blood Patch for spinal headache
--- NOTE | 2024-08-16 22:36 | PC.NURSE ---
Fe CRUMP returning call. Orders recieved for Rickioricet 1 tab now. send to pharmacy
[2024-08-16 22:39] VITALS: BMI 31.6
[2024-08-16] MEDS: BUTALB/ACETAMINOPHEN/CAFFEINE 50MG/325MG/40MG TAB 1 EACH PO (22:50)
--- NOTE | 2024-08-16 22:50 | PC.NURSE ---
Fe CRUMP arrived to floor , Assessing patient. Patient laying flat. Fe RN discussing blood patch procedure and patient consents obtained.
[2024-08-16 22:51] VITALS: BP 140/84; PULSE 78
--- NOTE | 2024-08-16 23:25 | PC.NURSE ---
Sterile field for blood draw set up at this time
--- NOTE | 2024-08-16 23:27 | EXP.ANES.CKL ---
[facility] Disclaimer: The information contained in this section may have been updated after the patient was seen, as this information can be updated by other users. Medical History Metabolic syndrome Obesity Hypertension Depression Surgical History History of tonsillectomy History of delivery Patellar tendon rupture Family History Other No significant family history Social History Smoking Status: Never smoker alcohol intake: never substance use type: denies use current occupational status: other Travel in the last 8 weeks: None household members: significant other housing: house [facility] Anesthesia Checklist Patient Identification Patient Identification: Arm Band and Verbal (Name & ) Structural Data Admitted From: Inpatient Planned Operative Procedure/s: EBP Consent for Planned Operative Procedure(s) Verified: Yes Verified Documents: Surgical Consent and History and Physical NPO Status Verified Time NPO: 21:00 Chart Verification Results Verified: CBC and BMP Additional verifications Anesthesia Reactions: No Airway Assessment Mallampati Score:: Class II C-Spine Mobility Assessed: Yes TMJ Mobility Assessed: Yes Dentition: Good Dentition Neurological Assessment Level of Consciousness: Awake Hx Seizures: No Numbness or tingling in extremities: No Anesthesia Plan Anesthesia Risk discussed: Yes Anesthesia Plan: Verified ASA Class: II Anesthesia Type: Epidural (EBP)
[2024-08-16 23:30] VITALS: BP 136/81; PULSE 88; RESP 18; TEMP 36.9; O2SAT 97
[2024-08-16 23:40] VITALS: BP 138/89; PULSE 87; RESP 18; O2SAT 97
--- NOTE | 2024-08-16 23:40 | PC.NURSE ---
Fe FOOD SERVICE ATTENDANT at bedside. Patient in dangle postion, RN at side. BP and HR WNL. FOOD SERVICE ATTENDANT prepping patient. This RN draws 20CC if blood from Left AC using sterile technique. Patient tolerates well/ Blood Vial given to Fe CRUMP
[2024-08-16 23:51] VITALS: BP 150/81; PULSE 76
[2024-08-17 00:01] VITALS: BP 144/84; PULSE 74
[2024-08-17 00:06] VITALS: BP 138/84; PULSE 68; RESP 18; TEMP 36.7; O2SAT 97
[2024-08-17 00:11] VITALS: BP 143/86; PULSE 74; RESP 18; O2SAT 97
[2024-08-17 00:44] VITALS: BP 128/61; PULSE 67; RESP 18; TEMP 36.6
[2024-08-17 01:14] VITALS: BP 123/69; PULSE 83; RESP 18; TEMP 36.7
[2024-08-17 01:50] VITALS: BP 139/84; PULSE 89; RESP 18; TEMP 36.9; O2SAT 98
== END 2024-08-17 02:00 | disposition home or self-care (01) ==
LOC: OBOUT 22:13 → OB 22:13
PROVIDERS: Visit Provider Obstetrics & Gynecology
DX: G97.1 Other reaction to spinal and lumbar puncture (principal)
CPT/HCPCS: 62273; 94761; G0283; G0463

== ENCOUNTER 2024-09-30 11:19 | Outpatient (CLI) | payer BC, SELFPAY ==
--- NOTE | 2024-09-30 11:21 | XR_ITS ---
FINAL REPORT CLINICAL HISTORY: non visualized IUD FINDINGS: Pelvis One view was obtained. There is no fracture or dislocation. The joint spaces appear normal. IUD seen in the right hemipelvis, more lateral than expected. The orientation is unusual. IMPRESSION: Unusual orientation of IUD. Correlate with ultrasound or MRI is recommended to confirm intrauterine positioning. Reviewed, Interpreted and Dictated by Inocencio Conrad MD Transcribed by Katherin Hurst Authenticated and [facility]
== END 2024-09-30 23:59 | disposition home or self-care (01) ==
LOC: RAD 11:20
PROVIDERS: PCP Family Medicine; Visit Provider Obstetrics & Gynecology
DX: T83.32XA Displacement of intrauterine contraceptive device, initial encounter (principal)
CPT/HCPCS: 72170

== ENCOUNTER 2024-09-30 14:07 | Day surgery (SDC) | payer BC, SELFPAY ==
[2024-09-30] VITALS (9 sets, daily range): BP systolic 122–146; BP diastolic 72–99; PULSE 63–89; RESP 12–18; TEMP 36.6; O2SAT 95–100; BMI 29.8
[2024-09-30 14:53] LABS: Basophils % 0.5 % (0.1-2.0); Eosinophils # 0.1 K/mm3 (0.0-0.4); Eosinophils % 1.6 % (0.1-12.0); Hematocrit 37.1 % (37.0-47.0); Hemoglobin 11.8 g/dL (12.2-16.2); Lymphocytes # 2.5 K/mm3 (0.7-4.5); Lymphocytes % 30.8 % (10-50); Mean Corpuscular HGB Conc 31.8 g/dL (31.8-35.4); Mean Corpuscular Hemoglobin 25.7 pg (27.0-31.2); Mean Corpuscular Volume 80.8 fl (81-99); Mean Platelet Volume 10.8 fl (7.4-10.4); Monocytes # 0.4 K/mm3 (0.1-1.0); Monocytes % 5.1 % (1.7-9.3); Neutrophils # 4.9 K/mm3 (1.8-7.8); Neutrophils % 61.6 % (37.0-80.0); Platelet Count 337 K/mm3 (142-424); Red Blood Count 4.59 M/mm3 (4.20-5.40); Red Cell Distribution Width 14.4 % (11.5-17.5)
[2024-09-30 15:14] LABS: Albumin Level 4.6 g/dl (3.5-5.0); Chloride 106 mmol/L (98-107); Sodium 140 mmol/L (136-145)
[2024-09-30 15:16] LABS: Blood Urea Nitrogen 11 mg/dl (7-17); Creatinine Clearance Estimated 178 mL/min (50-200); Estimated Glomerular Filt Rate 102 ml/min (>60); GFR (African American) 123 ML/MIN (>60)
[2024-09-30 15:17] LABS: Alanine Aminotransferase 36 U/L (12-78); Albumin/Globulin Ratio 1.9 (1.1-1.8); Alkaline Phosphatase 74 U/L (38-126); Aspartate Amino Transferase 31 U/L (14-36); Bilirubin,Total 0.5 mg/dl (0.2-1.3); Calcium 9.3 mg/dl (8.4-10.2); Carbon Dioxide 25 mmol/L (22.0-30.0); Globulin 2.4 g/dL (1.3-3.2); Glucose 90 mg/dl (74-100)
--- NOTE | 2024-09-30 17:35 | P.PNANES_ITS ---
[facility] Disclaimer: The information contained in this section may have been updated after the patient was seen, as this information can be updated by other users. Medical History Pre-conception counseling URI (upper respiratory infection) Encounter for removal of intrauterine contraceptive device (IUD) Cystitis Mass of skin of finger of right hand Ring finger Metabolic syndrome Obesity Hypertension Depression Surgical History History of tonsillectomy History of delivery Desires repeat, declines tubal Patellar tendon rupture Family History Other No significant family history Social History Smoking Status: Never smoker alcohol intake: never substance use type: denies use current occupational status: other Travel in the last 8 weeks: None household members: significant other housing: house Have you lived/traveled outside [place] in past 30 days?: No Contact w/someone who lives/traveled outside [place] past 30 days?: No Exposure to someone with infectious disease in past 14 days?: No Do you have a fever (greater than 100.4 F or 38 C)?: No Have you tested positive for COVID-19: No Exposed to someone with COVID-19 in past 14 days?: No Do you have a sore throat?: No Do you have a cough?: No Do you have any weakness?: No Do you have any diarrhea?: No Are you experiencing any unusual bleeding?: No Do you have any muscle aches/pain?: No Do you have any abdominal pain?: No Are you experiencing loss of taste or smell?: No [facility] Anesthesia Checklist Patient Identification Patient Identification: Verbal (Name & ) Structural Data Admitted From: Home Planned Operative Procedure/s: dx lap Consent for Planned Operative Procedure(s) Verified: Yes NPO Status Verified Time NPO: 00:00 Additional verifications Anesthesia Reactions: No Hx Blood Transfusions: No Blood Transfusion Reaction: No Airway Assessment Mallampati Score:: Class II C-Spine Mobility Assessed: Yes TMJ Mobility Assessed: Yes Dentition: Good Dentition Neurological Assessment Level of Consciousness: Awake, Alert and Appropriate Anesthesia Plan Anesthesia Risk discussed: Yes Anesthesia Plan: Verified ASA Class: II Anesthesia Type: General
--- NOTE | 2024-09-30 17:36 | P.PNANES_ITS ---
[facility] Anesthesia Record Part I Anesthesia Record I Intake, IV Amount: 1,200 Hydration: Adequate Estimated blood loss (mL): 0 Urine output (mL): 50 Blood Pressure: 142/87 SaO2: 97 Pulse Rate: 83 Airway Patency: Patent Respiratory Rate: 12 Temperature: 98 F Patient is:: Awake and Stable Stable to PACU at:: 17:30
--- NOTE | 2024-09-30 18:03 | EXP.OP.NOTE ---
Date of procedure: 09/30/24 Pre-op Diagnosis:: 1. Malpositioned IUD Post-op Diagnosis:: 1. Malpositioned IUD Procedure performed:: Diagnostic laparoscopy with IUD removal Surgeon:: Rose Marie Hou DO FURNACE BRAZER:: Niall Govea Anesthesia: GETA Estimated blood loss (mL): 10 Operative findings:: 1. Bimanual examination revealed an anteverted 6-week size uterus with smooth contour without any adnexal masses. 2. Laparoscopic exam revealed normal-appearing uterus, ovaries, fallopian tubes and liver. There were adhesions noted from the bladder to the anterior uterine wall. There was a small hemostatic perforation noted at the fundus on the posterior wall. Operative note:: The patient was taken to the operating room where general anesthesia was obtained and noted to be adequate. SCDs were placed for thromboembolism prophylaxis and found to be working. The patient was placed in the dorsal lithotomy position using yellowfin stirrups. Timeout verified the correct patient and procedure. The patient was prepped and draped in a usual sterile fashion. A catheter was used to drain her bladder. An acorn uterine manipulator was placed and my top gloves were removed. 10mL of Lidocaine was injected infraumbilically and a scalpel was used to make a 5 mm infraumbilical incision with the assistance from a hemostat. The skin was tented and Optiview blunt trocar was introduced into the abdomen in the usual fashion. CO2 gas was connected with an initial pressure of 6 mmHg noted. Pneumoperitoneum was created to a pressure of 15 mmHg. The laparoscopic camera was inserted and a quick survey of the abdomen revealed grossly normal anatomy as described above. The uterus appeared to be anteverted with a normal size shape and contour. The patient was placed in Trendelenburg. 10mLs of local anesthetic was injected and a 8mm incision was then made in the left lower quadrant with careful attention to avoid the rectus muscles and vasculature and under direct laparoscopic visualization a blunt trocar was introduced into the abdominal cavity. The IUD was easily identified, grasped and removed from the 8mm port. The fallopian tubes were identified on the cornu of the uterus and followed out to the ovaries which revealed grossly appearing anatomy. Pneumoperitoneum reduced, and all ports removed. The 2 abdominal incisions were closed with a single simple interrupted suture using 4-0 Monocryl. Dermabond was applied to each skin incision. The [place] uterine manipulator was removed. All counts were correct x2, per nursing. The patient was extubated, stable, and transferred to the PACU. She will be discharged after meeting all DC criteria to include voiding, ambulating and tolerating PO independently. Condition: stable Disposition: same day Complications:: None
[2024-10-01 07:18] VITALS: BP 131/99; PULSE 64; RESP 18; TEMP 36.6; O2SAT 99
--- NOTE | 2024-10-01 07:18 | P.PNANES_ITS ---
[facility] Anesthesia Record Part II Anesthesia Record Part II Discharge Time: 18:00 Destination: Surgical Day Care (OP Surgery) PACU nurse assessment reviewed?: Yes Patient Condition:: Good Anesthesia Complications:: None Swallowing reflex intact?: Yes Airway Patency: Patent Cyanosis?: No Blood Pressure: 131/99 SaO2: 99 Respiratory Rate: 18 Pulse Rate: 64 Temperature: 98 F Mental Status: Alert & Oriented Pain level:: 0 Nausea and/or vomitting:: None Intake, IV Amount: 0 Hydration: Adequate
== END 2024-09-30 18:35 | disposition home or self-care (01) ==
PROVIDERS: PCP Family Medicine; Visit Provider Obstetrics & Gynecology
PROC: (CPT 49320; principal; 2024-09-30 16:30)
DX: Z30.432 Encounter for removal of intrauterine contraceptive device (principal); T83.32XA Displacement of intrauterine contraceptive device, initial encounter
CPT/HCPCS: 49329; 80053; 85025; J1100; J1595; J1885; J2250; J2405; J2710; J3010

== ENCOUNTER 2025-03-26 15:38 | Outpatient (CLI) | payer BC, SELFPAY | END 2025-03-26 23:59 | LOC: LAB.DROPOF 03-29 10:45 | PROVIDERS: PCP Nurse Practitioner Family; Visit Provider Nurse Practitioner Family | DX: N39.0 Urinary tract infection, site not specified (principal) | CPT/HCPCS: 87086; 87088; 87186 ==